=== PATIENT | male | born 1975 | race Caucasian/White ===

== ENCOUNTER 2018-12-02 16:27 | Emergency (ER) | payer MEDICAID, SELFPAY ==
--- NOTE | 2018-12-02 16:41 | NUR.NOTE ---
Nursing Note: pt has had 10/10 LLQ abdominal pain since last night PT states that it feels just like when he had his appendicitis
[2018-12-02 16:42] VITALS: BP 132/84; PULSE 70; RESP 15; TEMP 36.9; O2SAT 97
--- NOTE | 2018-12-02 16:54 | ED.GENADUL_ITS ---
Discharge Plan Disposition Patient Disposition: HOME Condition: Stable Discharge Details Chief Complaint: Abd Prob Clinical Impression: Diverticulitis Primary Care Provider: Nik Casas ED Provider: Ramses Loya Home Meds and New Rx's Prescriptions: No Action ibuprofen 800 mg tablet 800 mg PO TID PRN (Reason: pain) Qty: 90 RF: 3 clonazepam 0.5 mg tablet 1 mg PO BID Qty: 120 RF: 0 Discharge Data Discharge Date/Time-TO BE ENTERED AT DEPARTURE: 12/02/18 20:15 Medical Decision Making 43 yo male with hx of prior appendectomy over 5 years ago per pt who comes in with 2 days of worsening left lower quadrant pain. Denies fevers, chills, chest pain, sob, vomit. No recent travel. Has no upper abdominal pain, mild rlq pain on exam and significant tenderness in the llq on exam without guarding. Ssupect diverticulitis, will obtain ct imaging and lab work and monitor pt's workup came back during down time. His labs showed no significant abnormalities and CT confirmed uncomplicated diverticulitis. Was given d/c instructions to f/u with pcp and return if worsening, prescribed cipro and flagyl as well as 12 tabs of oxycodone. Differential Diagnosis diverticulitis, abscess, colitis Imaging Data Radiologic Study: Attestation: I personally reviewed and interpreted this imaging study as follows: Imaging: CT Scan Radiologist's impression: diverticulitis Lab Data Lab results reviewed: Yes I reviewed the patient's lab results. ECG Data Attestation: I personally reviewed and interpreted this ECG (s) as follows: Prior ECG tracings: not available for review Interpretation: sinus rhythm, rate of 76, pr 148, no acute st t wave ischemic findings HPI General Mode of arrival: ambulatory . Date/Time Provider Initiated Documentation: 12/02/18 16:27 . Limitations to Documentation: no limitations . Information obtained by: patient . History of Present Illness 43 year old M presents to the emergency department with the chief complaint of abdominal pain, described as moderate and severe, Quality is described as stabbing, Patient reports no radiation. Patient started experiencing this day(s) (2) and it has been constant. No relieving factors improve symptom(s), No exacerbating factors reported . Patient did receive the following treatments prior to arrival, none Related Data Home Medications Medication Instructions Recorded Confirmed ibuprofen 800 mg tablet 800 mg PO TID PRN #90 tab 02/05/18 clonazepam 0.5 mg tablet 1 mg PO BID #120 tab NS 11/06/18 Previous Rx's Medication Instructions Recorded ibuprofen 800 mg tablet 800 mg PO TID PRN #90 tab 02/05/18 clonazepam 0.5 mg tablet 1 mg PO BID #120 tab NS 11/06/18 Allergies Allergy/AdvReac Type Severity Reaction Status Date / Time Penicillins Allergy Intermediate Hives Unverified 01/16/18 14:30 duloxetine AdvReac Severe Headache, Unverified 01/16/18 14:30 muscle spasm methylprednisolone AdvReac Severe GI upset, Unverified 01/16/18 14:30 [From Medrol] body aches pregabalin [From Lyrica] AdvReac Severe severe flu Unverified 01/16/18 14:30 like symptoms gabapentin AdvReac Intermediate stomach, Unverified 01/16/18 14:30 body aches lisinopril AdvReac Intermediate Burning Unverified 01/16/18 14:30 hands and feet. Malaise General Stated Complaint: Abd Prob BRETT: 3 Review of Systems Review of Systems All systems reviewed & are unremarkable except as noted in HPI and below Constitutional Denies chills, Denies fever(s) and Denies weakness Cardiovascular Denies chest pain and Denies dyspnea Respiratory Denies cough and Denies dyspnea Gastrointestinal Denies vomiting Genitourinary Denies dysuria Musculoskeletal Denies joint swelling Neurologic Denies weakness Endocrine Denies heat intolerance PFS Social History (Updated 02/19/18 @ 10:24 by Mikki Giles) Smoking/Tobacco Use Status: Never Alcohol Intake: never Drug use: Never Substance use type: does not use Household members: spouse current occupation: Owns [employer] in [place] Do you feel safe in your relationship?: Yes Exam Const General: no acute distress Orientation: alert HENMT Head: normal to inspection Ears: external ears normal General nose exam: external nose normal Mouth: moist mucous membranes Eyes General: appearance normal, both eyes and all related structures Neck Neck: normal visual inspection Resp Effort & Inspection: normal respiratory effort and able to speak in complete sentences Cardio Rate: regular rate GI Palpation: soft Skin General skin exam: no rashes or lesions noted Neuro General: alert and oriented x3 Extrem General: normal to inspection Psych Mental Status: mental status grossly normal Course Vital Signs Temperature 36.9 C 12/02/18 16:42 Pulse 70 12/02/18 16:42 Respiratory Rate 15 12/02/18 16:42 Blood Pressure 132/84 12/02/18 16:42 Pulse Oximetry 97 12/02/18 16:42 Temperature 36.9 C 12/02/18 16:42 Temperature Source Skin 12/02/18 16:42 Pulse 70 12/02/18 16:42 Respiratory Rate 15 12/02/18 16:42 Respiratory Effort Non-Labored 12/02/18 16:50 Blood Pressure 132/84 12/02/18 16:42 Blood Pressure Position Sitting 12/02/18 16:42 Pulse Oximetry 97 12/02/18 16:42 Oxygen Delivery Method Room Air 12/02/18 16:42 Oxygen Flow Rate 0 12/02/18 16:42 Pain Level 10 12/02/18 16:42
[2018-12-02] MEDS: Normal Saline 1,000 ML 1000 ML IV (17:15)
[2018-12-02] MEDS: Ketorolac 15 MG/ML VIAL IVP (17:15)
[2018-12-02 17:23] LABS: Abs Immature Grans 0.01 k/cumm (0.0-0.09); Absolute Basophil Count 0.01 k/cumm (0.0-0.2); Absolute Eosinophil Count 0.03 k/cumm (0.0-0.7); Absolute Lymphocyte Count 1.21 k/cumm (1.2-3.4); Absolute Monocyte Count 0.63 k/cumm (0.11-0.7); Absolute Neutrophil Count 7.39 k/cumm (1.2-6.7); Basophils % 0.1; Eosinophils % 0.3; HCT 43.2 % (40.0-50.0); Immature Grans % 0.1; Mean Corp. HGB Concentration 34.7 g/dL (32.0-36.0); Mean Corpuscular Hemoglobin 29.4 pg (27.0-33.0); Mean Corpuscular Volume 84.7 fL (80-95); Mean Platelet Volume 9.5 fL (8.0-11.0); Monocytes % 6.8; Neutrophils % 79.7; Platelet Count 224 x1000/uL (130-400); White Blood Cell Count 9.28 k/cumm (4.4-10.8)
[2018-12-02 17:36] LABS: INR 1.1 (0.9-1.1); PTT Activated 26.2 sec (21.0-31.4); Prothrombin Time 10.5 sec (9.3-11.0)
[2018-12-02 17:37] LABS: ALT 21 U/L (12-78); AST 10 U/L (15-37); Albumin 4.1 g/dL (3.4-5.0); Alkaline Phosphatase 57 U/L (46-116); BUN 16 mg/dL (7-18); CREATININE 1.23 mg/dL (0.70-1.30); Calcium 8.8 mg/dL (8.5-10.1); Chloride 101 mmol/L (98-107); Glucose 144 mg/dL (70-100); Lipase 91 U/L (73-393); Magnesium 2.1 mg/dL (1.8-2.4); Potassium 3.9 mmol/L (3.5-5.1); Sodium 138 mmol/L (136-145); Total Protein 7.6 g/dL (6.4-8.2)
[2018-12-02] MEDS: Omnipaque 350 MG/ML 100 ML BTL IJ (19:19)
[2018-12-02] MEDS: Omnipaque 350 MG/ML 50 ML BTL IJ (19:19)
--- NOTE | 2018-12-02 19:22 | DI.CT_ITS ---
SYMPTOMS/DIAGNOSIS: LEFT LOWER QUADRANT ABDOMINAL PAIN CT OF THE ABDOMEN AND PELVIS: Comparison is made with October,. The lung bases are clear. The heart size is normal. The liver is again noted to be mildly enlarged and shows mild fatty infiltration. The gallbladder, pancreas, adrenals and right kidney are unremarkable. There are a few splenic calcifications consistent with old healed granulomatous disease. There is a cyst at the upper pole of the left kidney. There are no stones or hydronephrosis. There are surgical clips near the base of the cecum. There is mild sigmoid diverticulosis. There is an area of wall thickening and inflammation consistent with diverticulitis. There is a trace amount of free fluid. There is no evidence of abscess or perforation. There is no abnormal bowel distention. IMPRESSION: Sigmoid diverticulitis.
--- NOTE | 2018-12-02 19:51 | DI.VRAD_ITS ---
EXAM: CT Abdomen and Pelvis With Contrast EXAM DATE/TIME: 12/02/2018 4:53 PM CLINICAL HISTORY: 43 years old, male; Abdominal pain; Localized; Left lower quadrant (llq) TECHNIQUE: Imaging protocol: Axial computed tomography images of the abdomen and pelvis with intravenous contrast. Coronal and sagittal reformatted images were created and reviewed. Radiation optimization: All CT scans at this facility use at least one of these dose optimization techniques: automated exposure control; mA and/or kV adjustment per patient size (includes targeted exams where dose is matched to clinical indication); or iterative reconstruction. Contrast material: [id number];Contrast volume: 125 ml;Contrast route: IV LAC 18G; COMPARISON: CT ABD PELVIS WITH CONTRAST 11/01/2017 4:38 PM FINDINGS: Liver: Mild hepatomegaly. Gallbladder and bile ducts: Normal. No calcified stones. No ductal dilation. Pancreas: Normal. No ductal dilation. Spleen: Splenomegaly. Splenic calcifications consistent with old granulomatous change. Adrenals: Normal. No mass. Kidneys and ureters: Left renal cyst. Stomach and bowel: Focal wall thickening involves the proximal sigmoid colon with wall diverticulum and mild adjacent inflammatory change. Appendix: Status post appendectomy. Intraperitoneal space: Trace free fluid. Vasculature: Normal. No abdominal aortic aneurysm. Lymph nodes: Normal. No enlarged lymph nodes. Bladder: Unremarkable as visualized. Reproductive: Unremarkable as visualized. Bones/joints: No acute fracture. No dislocation. Soft tissues: Unremarkable. IMPRESSION: 1. Acute diverticulitis, uncomplicated. 2. Hepatosplenomegaly, not significantly changed from prior exam. COMMENT: Preliminary interpretation is based on receipt of 356 image(s). A final report will be issued subsequently. Dictated and Authenticated by: Hyacinth Mcneil MD. Ordering:ARSH Pearce MD
== END 2018-12-02 20:15 | disposition home or self-care (01) ==
LOC: ER 16:45
PROVIDERS: Emergency Provider Emergency Medicine; PCP Family Medicine
DX: K57.32 Diverticulitis of large intestine without perforation or abscess without bleeding (principal); I10 Essential (primary) hypertension; R73.03 Prediabetes
CPT/HCPCS: 36415; 80053; 83690; 93005; 96361; 96374; 99285; 74177; 83735; 85025; 85610; 85730; 93010; J1885; J3490; Q9967

== ENCOUNTER 2019-03-23 13:13 | Outpatient (CLI) | payer MEDICAID, SELFPAY ==
[2019-03-27 08:14] LABS: GAD65 Ab Assay 0.11 nmol/L (<= 0.02)
== END 2019-03-23 13:33 ==
PROVIDERS: PCP Family Medicine; Visit Provider Psychiatry & Neurology Neurology
DX: R20.2 Paresthesia of skin (principal)
CPT/HCPCS: 36415; 86341

== ENCOUNTER 2019-04-17 15:56 | Emergency (ER) | payer MEDICAID, SELFPAY ==
[2019-04-17 15:59] VITALS: BP 140/96; PULSE 79; RESP 18; TEMP 36.6; O2SAT 99
--- NOTE | 2019-04-17 16:58 | W.ED.GENAD ---
Discharge Plan Disposition Patient Disposition: HOME Condition: Improving Discharge Details Chief Complaint: Abd Prob Clinical Impression: Diverticulitis of sigmoid colon Primary Care Provider: Nik Casas ED Provider: Butch Keller Home Meds and New Rx's Prescriptions: New metronidazole 500 mg tablet 500 mg PO Q6H 10 Days Qty: 40 RF: 0 ciprofloxacin HCl 750 mg tablet 750 mg PO BID 10 Days Qty: 20 RF: 0 Continued clonazepam 0.5 mg tablet 0.5 mg PO QID Qty: 120 RF: 1 ibuprofen 800 mg tablet 400 mg PO TID PRN (Reason: pain) RF: 0 Discontinued ciprofloxacin HCl [Cipro] 500 mg tablet 500 mg PO Q12H Qty: 20 RF: 0 metronidazole [Flagyl] 500 mg tablet 500 mg PO Q8H Qty: 30 RF: 0 Discharge Instructions Instructions: Diverticulitis (ED), Diverticulitis Diet (ED) Additional Instructions: Please observe a bland diet. May use Tylenol and/or ibuprofen as needed for pain. May use oxycodone as provided if needed for severe breakthrough pain. Take antibiotics as prescribed. Ciprofloxacin is twice daily, next dose tomorrow morning, Flagyl/metronidazole is every 6 hours. No alcohol with this medication. May use Zofran, sparingly, if needed for persistent nausea. When pain has abated, I recommend you begin daily Metamucil, available [id number]. Please follow-up with your regular doctor and consider referral to surgery for consultation. Return if increasing pain, vomiting, or any other acute concerns. Medical Decision Making 44-year-old male presents from home complaining of hours of the gradual onset of left lower quadrant abdominal pain is dull, achy, worse with movement. Similar to previous episode of diverticulitis in the past. He is otherwise been well, his vital signs are normal, his exam reveals primarily left and lower quadrant abdominal tenderness. Differential diagnosis includes diverticulitis, colitis, obstruction. Patient IV access established, given fluids, antiemetic, parenteral analgesia, and was referred for laboratory testing and CT scan. CBC with white count 8, medical 42, platelets 213. Sodium 141, potassium 4.4, chloride 101, bicarb 32, BUN 12, creatinine 1.1, LFTs unremarkable. CT with sigmoid diverticulitis, no free air or obstruction. Patient's pain improved with fluids and parenteral medications. He was started on oral antibiotics with ciprofloxacin and Flagyl. He did request and was provided a small number of narcotic analgesia for home. He understands homecare as well as indications to return for repeat evaluation. He will follow-up with PMD for recheck. He is stable and improving. Lab Data Lab results reviewed: Yes I reviewed the patient's lab results. Labs: Laboratory Results - last 24 hr 04/17/19 04/17/19 04/17/19 16:29 17:08 17:08 WBC 8.95 RBC 5.04 Hgb 14.8 Hct 42.5 MCV 84.3 MCH 29.4 MCHC 34.8 RDW 13.0 Plt Count 213 MPV 9.2 Immature Gran % 0.1 Neutrophils % 80.8 Lymphocytes % 10.9 Monocytes % 7.3 Eosinophils % 0.7 Basophils % 0.2 Absolute Neutrophils 7.23 H Absolute Lymphocytes 0.98 L Absolute Monocytes 0.65 Absolute Eosinophils 0.06 Absolute Basophils 0.02 Sodium Cancelled 141 Potassium Cancelled 4.4 Chloride Cancelled 101 Carbon Dioxide Cancelled 32.1 H Anion Gap Cancelled 7.9 BUN Cancelled 12 Creatinine Cancelled 1.16 Estimated GFR/1.73 m2 Cancelled >= 60.00 Glucose Cancelled 117 H Calcium Cancelled 9.2 Magnesium Cancelled Total Bilirubin Cancelled 0.7 AST Cancelled 15 ALT Cancelled 24 Alkaline Phosphatase Cancelled 68 Troponin I Cancelled Total Protein Cancelled 7.3 Albumin Cancelled 3.9 HPI General Mode of arrival: ambulatory. Date/Time Provider Initiated Documentation: 04/17/19 16:47. Limitations to Documentation: no limitations. Information obtained by: patient. History of Present Illness 44 year old M presents to the emergency department with the chief complaint of Left lower quadrant abdominal pain beginning today, similar to previous , described as similar to prior episodes, Quality is described as dull and constant, and is localized to the abdomen and left. Patient reports no radiation. Patient started experiencing this hour(s) and it has been constant. Rest improves symptom(s), Movement worsens symptoms . Patient notes fever/chills and loss of appetite. Patient did receive the following treatments prior to arrival, none Related Data Home Medications Medication Instructions Recorded Confirmed clonazepam 0.5 mg tablet 0.5 mg PO QID #120 tab 04/08/19 04/17/19 ciprofloxacin HCl 750 mg PO BID 10 Days #20 tab 04/17/19 ibuprofen 400 mg PO TID PRN 04/17/19 04/17/19 metronidazole 500 mg PO Q6H 10 Days #40 tab 04/17/19 Previous Rx's Medication Instructions Recorded clonazepam 0.5 mg tablet 0.5 mg PO QID #120 tab 04/08/19 ciprofloxacin HCl 750 mg PO BID 10 Days #20 tab 04/17/19 metronidazole 500 mg PO Q6H 10 Days #40 tab 04/17/19 Allergies Allergy/AdvReac Type Severity Reaction Status Date / Time Penicillins Allergy Intermediate Hives Unverified 04/17/19 16:17 duloxetine AdvReac Severe Headache, Unverified 04/17/19 16:17 muscle spasm methylprednisolone AdvReac Severe GI upset, Unverified 04/17/19 16:17 [From Medrol] body aches pregabalin [From Lyrica] AdvReac Severe severe flu Unverified 04/17/19 16:17 like symptoms gabapentin AdvReac Intermediate stomach, Unverified 04/17/19 16:17 body aches lisinopril AdvReac Intermediate Burning Unverified 04/17/19 16:17 hands and feet. Malaise General Stated Complaint: Abd Prob BRETT: 3 Review of Systems Narrative: Recently well. Blood-streaked stool yesterday. No vomiting. No bloating. No noted fever. 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 The disc material appears to abut the L5 nerve root. 10/18/15 Lumbar spondylosis L4-L5, left Dental caries (Resolved) Esophageal reflux (Chronic) neg, HPylori Essential hypertension (Chronic 02/16/15) Family history of diabetes mellitus (Resolved 10/07/13) Idiopathic scoliosis (Chronic) Obesity (BMI 30-39.9) (Chronic 11/15/17) Prediabetes (Chronic) Surgical History Appendectomy H/O lumbosacral spine surgery (Acute) Left L4-5 ton-laminotomy with a medial facetectomy for left sciatica; 10/18/[address] Menendez Myringotomy w/ PE (pressure equalizing) tubes age 5 Tonsillectomy Social History Smoking/Tobacco Use Status: Never Alcohol Intake: never Drug use: Never Substance use type: does not use Household members: spouse current occupation: Owns [employer] in [place] Do you feel safe in your relationship?: Yes Exam Narrative Exam Narrative: GEN: awake, alert, oriented 3. Pleasant, well groomed, interactive. HEAD: Normocephalic, atraumatic ENT: Mucous membranes moist, oropharynx unremarkable, External ear exam unremarkable EYES: PERRL, EOMI NECK: Full ROM, no DEV, no menigismus CHEST/RESP: Nontender, clear to auscultation bilateral, no wheeze/rhonchi/rales CARDIOVASCULAR: RRR, no murmur, rub isabel. 2+ Rad pulse bilateral ABDOMEN: Soft, tender in the left and lower quadrants of the abdomen, mild rebound present, no guarding. EXT: Full ROM, no edema, no rash Neuro: Grossly normal neurologic exam, conversant, interactive. Psych: Speech fluent, thoughts congruent, affect normal Course Vital Signs Vital signs: Vital Signs Temperature 36.6 C 04/17/19 15:59 Pulse 79 04/17/19 15:59 Respiratory Rate 18 04/17/19 15:59 Blood Pressure 140/96 H 04/17/19 15:59 Pulse Oximetry 99 04/17/19 15:59 Temperature 36.6 C 04/17/19 15:59 Temperature Source Skin 04/17/19 15:59 Pulse 79 04/17/19 15:59 Respiratory Rate 18 04/17/19 15:59 Respiratory Effort 04/17/19 16:03 Blood Pressure 140/96 H 04/17/19 15:59 Pulse Oximetry 99 04/17/19 15:59 Oxygen Delivery Method Room Air 04/17/19 15:59 Oxygen Flow Rate 0 04/17/19 15:59 Pain Level 8 04/17/19 16:19
[2019-04-17] MEDS: Normal Saline 1,000 ML 1000 ML IV ×2 (17:10→17:15)
[2019-04-17 17:20] LABS: Abs Immature Grans 0.01 k/cumm (0.0-0.09); Absolute Basophil Count 0.02 k/cumm (0.0-0.2); Absolute Eosinophil Count 0.06 k/cumm (0.0-0.7); Absolute Lymphocyte Count 0.98 k/cumm (1.2-3.4); Absolute Monocyte Count 0.65 k/cumm (0.11-0.7); Absolute Neutrophil Count 7.23 k/cumm (1.2-6.7); Basophils % 0.2; Eosinophils % 0.7; HCT 42.5 % (40.0-50.0); HGB 14.8 g/dL (13.5-17.5); Immature Grans % 0.1; Lymphocytes % 10.9; Mean Corp. HGB Concentration 34.8 g/dL (32.0-36.0); Mean Corpuscular Hemoglobin 29.4 pg (27.0-33.0); Mean Corpuscular Volume 84.3 fL (80-95); Mean Platelet Volume 9.2 fL (8.0-11.0); Monocytes % 7.3; Neutrophils % 80.8; Platelet Count 213 x1000/uL (130-400); RBC 5.04 m/cumm (4.50-6.00); White Blood Cell Count 8.95 k/cumm (4.4-10.8)
[2019-04-17] MEDS: HYDROmorphone 2 MG/ML VIAL 0.5 MG IVP ×2 (17:23→18:59)
[2019-04-17 17:31] LABS: ALT 24 U/L (16-63); AST 15 U/L (15-37); Albumin 3.9 g/dL (3.4-5.0); Alkaline Phosphatase 68 U/L (46-116); Anion Gap 7.9 mmol/L (3-11); BUN 12 mg/dL (7-18); Bilirubin, Total 0.7 mg/dL (0.2-1.0); CO2 32.1 mmol/L (21.0-32.0); CREATININE 1.16 mg/dL (0.70-1.30); Calcium 9.2 mg/dL (8.5-10.1); Chloride 101 mmol/L (98-107); Glucose 117 mg/dL (74-106); Potassium 4.4 mmol/L (3.5-5.1); Sodium 141 mmol/L (136-145); Total Protein 7.3 g/dL (6.4-8.2)
[2019-04-17] MEDS: Omnipaque 350 MG/ML 100 ML BTL IJ (17:41)
--- NOTE | 2019-04-17 18:04 | DI.CT_ITS ---
EXAM: CT ABDOMEN PELVIS W CLINICAL HISTORY: LLQ pain, hx diverticulitis TECHNIQUE: Imaging Protocol: Axial computed tomography images with coronal and sagittal reformatted images were created and reviewed CONTRAST MATERIAL: Intravenous: Omnipaque 350 Contrast volume:100 mL contrast route:IV - Oral: No COMPARISON: CT ABDOMEN PELVIS W from 12/02/2018 FINDINGS: ABDOMEN: Lung Bases: Normal where visualized. Liver: Normal density. No measurable mass. Gallbladder and biliary tract: No radiodense calculus or dilation. Pancreas: Normal density, no abnormal calcifications or inflammatory process. Spleen: Calcifications consistent with prior granulomatous disease. Kidneys: Normal size, contour and axis. No radiodense stones or obstructive uropathy. Stable cyst in the superior pole of the left kidney. No solid renal mass. Adrenal glands: No masses seen. Abdominal Aorta: Abdominal portion non-dilated. PELVIS: Bladder: Symmetric distention, no gross wall thickening. Bowel: There is diverticulosis of the colon. Bowel wall thickening and pericolonic changes are seen in the proximal sigmoid colon consistent with acute diverticulitis. No abscess. The patient is stat us post appendectomy. Bowel is otherwise unremarkable. Peritoneal cavity: No ascites, collection or mesenteric inflammatory response. No pneumoperitoneum. Bones: Within normal limits. Reproductive organs: Within normal limits. Lymph nodes: Unremarkable. Impression: Acute sigmoid diverticulitis. No evidence of abscess or free air. DATA REPOSITORY: All CT scans at this facility are submitted to the National Radiology Data Registry (NRDR) Dose Index Registry (DIR) with the [employer] ([employer]). RADIATION OPTIMIZATION: All CT scans at this facility use at least one of these dose optimization te chniques: automated exposure control; mA and/or kV adjustment per patient size (includes targeted exa ms where dose is matched to clinical indication); or iterative reconstruction.
[2019-04-17 18:30] LABS: Bilirubin Negative (Negative); Blood Negative (Negative); Clarity Clear (Clear); Glucose Negative (Negative); Ketones Negative (Negative); Leukocyte Esterase Negative (Negative); Nitrite Negative (Negative); Specific Gravity 1.015 (1.005-1.025); Urobilinogen 0.2 EU/dL (Up TO 0.2)
--- NOTE | 2019-04-17 18:37 | DI.VRAD_ITS ---
PROCEDURE INFORMATION: Exam: CT Abdomen And Pelvis With Contrast Exam date and time: 04/17/2019 6:12 PM Age: 44 years old Clinical indication: Abdominal pain; Localized; Left lower quadrant (llq); Patient HX: Llq pain, HX diverticulitis TECHNIQUE: Imaging protocol: Computed tomography of the abdomen and pelvis with intravenous contrast. COMPARISON: CT ABDOMEN PELVIS W 12/02/2018 7:18 PM FINDINGS: Lungs: Visualized lung bases are unremarkable. Liver: The liver is normal. Gallbladder and bile ducts: The gallbladder is normal. Pancreas: The pancreas is normal. Spleen: Punctate calcifications in the spleen consistent with prior granulomatous disease. Adrenals: The adrenal glands are normal. Kidneys and ureters: Simple appearing left renal cyst.The kidneys are otherwise unremarkable. Stomach and bowel: Sigmoid diverticulosis with mild surrounding fat stranding. Otherwise normal appearance of the large and small bowel. Appendix: Status post appendectomy. Intraperitoneal space: Unremarkable. No free air. No significant fluid collection. Vasculature: The aorta is normal. Lymph nodes: Unremarkable. No enlarged lymph nodes. Bladder: The bladder is normal. Reproductive: The prostate and seminal vesicles are normal. Bones/joints: Unremarkable. No acute fracture. Soft tissues: Unremarkable. IMPRESSION: Mild sigmoid diverticulitis. No abscess or free air. Dictated and Authenticated by: Milind Valenzuela MD. Ordering:JUSTEN Rae MD
[2019-04-17] MEDS: Ciprofloxacin 500 MG TAB 750 MG PO (18:56)
[2019-04-17] MEDS: metroNIDAZOLE 500 MG TAB PO (18:57)
[2019-04-17 19:02] VITALS: BP 114/85; PULSE 80; RESP 18; O2SAT 100
[2019-04-17] MEDS: HYDROmorphone 2 MG/ML VIAL (20:05)
[2019-04-17] MEDS: Ondansetron 4 MG/2 ML VIAL IVP (20:07)
[2019-04-17] MEDS: Ciprofloxacin 250 MG TAB PO (20:14)
[2019-04-17] MEDS: metroNIDAZOLE 500 MG TAB, 3 TABS/BTL PO (20:15)
[2019-04-17 20:16] VITALS: BP 114/67; PULSE 89; RESP 18; TEMP 36.4; O2SAT 98
[2019-04-17] MEDS: Ondansetron O.D.T. 4 MG TABEF, 3 TABS/BTL PO (20:16)
== END 2019-04-17 20:15 | disposition home or self-care (01) ==
PROVIDERS: Emergency Provider Emergency Medicine; PCP Family Medicine
DX: K57.32 Diverticulitis of large intestine without perforation or abscess without bleeding (principal); I10 Essential (primary) hypertension
CPT/HCPCS: 36415; 80053; 96361; 96365; 96375; 96376; 99285; 74177; 81003; 83735; 84484; 85025; 99284; J2405; J3490

== ENCOUNTER 2019-05-18 09:45 | Observation (INO) | payer MEDICAID, SELFPAY ==
[2019-05-18] VITALS (51 sets, daily range): BP systolic 109–174; BP diastolic 58–95; PULSE 51–93; RESP 8–28; TEMP 36.1–37.1; O2SAT 94–99
--- NOTE | 2019-05-18 09:56 | ED.GENADUL_ITS ---
Discharge Plan Disposition Condition: Stable Discharge Details Chief Complaint: Chest Pain Admit Date/Time: 05/18/19 15:30 Admit Provider: Osman Grande Attending Provider: Osman Grande Primary Care Provider: Nik Casas ED Provider: Flor Patricio Discharge Instructions Activity:: Activity as Tolerated Equipment/Supplies:: No Equipment Needed Diet:: As Tolerated Discharge Orders Discharge Orders: Discharge Order (Routine); Ordered 05/19/19 Ordered By: Ramses Zarate Discharge Data Discharge Date/Time-TO BE ENTERED AT DEPARTURE: 05/18/19 16:00 Medical Decision Making Devon Blue is a 44-year-old man with history of hypertension, anxiety, GERD who presented to the emergency department with left great toe pain chronic over the past 1.5 years worse in the last 3 days consistent with prior episodic pain, also with 2 to 3 weeks of left-sided chest pain which is currently occurring. On exam patient is well and nontoxic appearing. Benign cardiopulmonary exam. Diffuse tenderness palpation of bilateral lower legs that is very mild and seem pain as what is elicited with palpation of bony areas such as patella and malleoli, no edema or erythema of the legs. Left great toe with mild edema and erythema of the PIP joint. Concern for ACS versus musculoskeletal pain versus GERD versus other, doubt pulmonary embolism. Also concern for likely gout, possible influenza, possible metabolic/lyte derangement. Doubt DVT. Exam/history is not consistent with cellulitis, acute aortic pathology, sepsis, acute emergent intra-abdominal process. Plan for EKG, chest x-ray, screening labs, telemetry, aspirin, chewable nitroglycerin. Will monitor and reassess. Patient reports chest pain resolved completely after sublingual nitroglycerin x3. Labs reviewed, troponin negative, d-dimer negative. Plan for repeat troponin, repeat EKG. Repeat troponin negative, repeat EKG nondiagnostic. Patient has remained chest pain-free since receiving nitroglycerin. Patient now reports to me that he does feel that his chest pain has been exertional, as he has had the same pain is initially described during sexual activity, which then does seem to improve significantly upon rest. Plan for admission for rule out. Plan for colchicine for likely gout. Clinical impression: Chest pain, gout Disposition: [facility] inpatient Medical Records Medical records reviewed: Yes I reviewed the patient's medical records. Imaging Data Radiologic Study: Attestation: I personally reviewed and interpreted this imaging study as follows: Radiologist's impression: EXAM: XR CHEST 2V PA LATERAL CLINICAL HISTORY: chest pain TECHNIQUE: 2D digital imaging was performed. COMPARISON: No exams were available for comparison FINDINGS: The cardiac and mediastinal contours have a normal appearance. The lungs are well inflated and clear. No infiltrate, effusion or pneumothorax is seen. No spine or rib fracture is identified. IMPRESSION: Negative chest x-ray. Lab Data Lab results reviewed: Yes I reviewed the patient's lab results. Labs: 05/18/19 10:22 Nasopharynx Influenza Types A,B Antigen - Final Laboratory Tests Range/Units 05/18/19 05/18/19 05/18/19 10:22 10:22 10:22 WBC (4.4-10.8) k/cumm RBC (4.50-6.00) m/cumm Hgb (13.5-17.5) g/dL Hct (40.0-50.0) % MCV (80-95) fL MCH (27.0-33.0) pg MCHC (32.0-36.0) g/dL RDW (11.8-14.1) % Plt Count (130-400) x1000/uL MPV (8.0-11.0) fL Immature Gran % % Neutrophils % Lymphocytes % Monocytes % Eosinophils % Basophils % Absolute Neutrophils (1.2-6.7) k/cumm Absolute Lymphocytes (1.2-3.4) k/cumm Absolute Monocytes (0.11-0.7) k/cumm Absolute Eosinophils (0.0-0.7) k/cumm Absolute Basophils (0.0-0.2) k/cumm D-Dimer (<500) ng/mlFEU 204 Sodium (136-145) mmol/L 139 Potassium (3.5-5.1) mmol/L 4.2 Chloride (98-107) mmol/L 105 Carbon Dioxide (21.0-32.0) mmol/L 25.1 Anion Gap (3-11) mmol/L 8.9 BUN (7-18) mg/dL 11 Creatinine (0.70-1.30) mg/dL 1.09 Estimated GFR/1.73 m2 (mL/min/1.73m2) >= 60.00 Glucose (74-106) mg/dL 175 H Calcium (8.5-10.1) mg/dL 8.8 Magnesium (1.8-2.4) mg/dL 1.9 Total Bilirubin (0.2-1.0) mg/dL 0.4 AST (15-37) U/L 13 L ALT (16-63) U/L 25 Alkaline Phosphatase (46-116) U/L 75 Troponin I (<0.06) ng/Ml < 0.05 NT-Pro-B Natriuret Pep (<300) pg/mL 12 Total Protein (6.4-8.2) g/dL 7.4 Albumin (3.4-5.0) g/dL 4.1 Range/Units 05/18/19 05/18/19 10:22 13:05 WBC (4.4-10.8) k/cumm 5.28 RBC (4.50-6.00) m/cumm 5.22 Hgb (13.5-17.5) g/dL 15.5 Hct (40.0-50.0) % 44.1 MCV (80-95) fL 84.5 MCH (27.0-33.0) pg 29.7 MCHC (32.0-36.0) g/dL 35.1 RDW (11.8-14.1) % 13.0 Plt Count (130-400) x1000/uL 252 MPV (8.0-11.0) fL 9.5 Immature Gran % % 0.2 Neutrophils % 59.8 Lymphocytes % 28.8 Monocytes % 9.1 Eosinophils % 1.7 Basophils % 0.4 Absolute Neutrophils (1.2-6.7) k/cumm 3.16 Absolute Lymphocytes (1.2-3.4) k/cumm 1.52 Absolute Monocytes (0.11-0.7) k/cumm 0.48 Absolute Eosinophils (0.0-0.7) k/cumm 0.09 Absolute Basophils (0.0-0.2) k/cumm 0.02 D-Dimer (<500) ng/mlFEU Sodium (136-145) mmol/L Potassium (3.5-5.1) mmol/L Chloride (98-107) mmol/L Carbon Dioxide (21.0-32.0) mmol/L Anion Gap (3-11) mmol/L BUN (7-18) mg/dL Creatinine (0.70-1.30) mg/dL Estimated GFR/1.73 m2 (mL/min/1.73m2) Glucose (74-106) mg/dL Calcium (8.5-10.1) mg/dL Magnesium (1.8-2.4) mg/dL Total Bilirubin (0.2-1.0) mg/dL AST (15-37) U/L ALT (16-63) U/L Alkaline Phosphatase (46-116) U/L Troponin I (<0.06) ng/Ml < 0.05 NT-Pro-B Natriuret Pep (<300) pg/mL Total Protein (6.4-8.2) g/dL Albumin (3.4-5.0) g/dL ECG Data Attestation: I personally reviewed and interpreted this ECG (s) as follows: Interpretation: EKG shows sinus rhythm at 68, normal axis, no acute ischemic changes, no major changes from prior 12/02/2018, nondiagnostic EKG EKG 14: 43 shows sinus rhythm at 51, normal axis, no acute ischemic changes, no significant change from prior, nondiagnostic EKG HPI General Mode of arrival: ambulatory . Date/Time Provider Initiated Documentation: 05/18/19 09:55 . Limitations to Documentation: no limitations . Information obtained by: patient, RN notes reviewed and old records reviewed . HPI Narrative: Devon Shields is a 44-year-old man with a history of anxiety, hypertension, GERD presenting to the emergency department with left great toe pain and left chest pain. Patient reports that currently his worst pain is in his left toe. He reports that he has been having pain in this toe over the past year and a half. He suspects that his pain is caused by gout, although he has not had confirmatory testing. Patient takes ibuprofen intermittently for this. Patient reports that over the past few days his toe pain has flared up as it tends to do intermittently. Patient reports that toe pain is the worst pain th at he is currently having, although it is not worse than his typical for flareups. He does reports the pain seems to radiate into his entire foot and up his left leg which does not usually occur. Patient also reports that over the past 1 year he has had left-sided chest discomfort that he describes as heaviness and like a muscle spasm with a burning sensation. Pain has been occurring more frequently and with more severity over the past 2 to 3 weeks. Pain does not radiate. Patient reports that pain does not seem to have any inciting factors, although it does become worse with exertion. Patient is unsure if rest helps lessen pain. Patient reports that for the past 2 to 3 weeks he often wakes up with the sensation in his chest, it waxes and wanes throughout the day and usually lasts until he goes to sleep. Patient reports that pain seems unchanged by eating. Nonpleuritic. He reports that in the past 3 days he has also had generalized body aches in his muscles and joints, worse in his legs but also occurring in his arms, and productive cough. Patient reports some mild shortness of breath over this period as well. He denies fevers, vomiting, diarrhea, rash, numbness, focal weakness, any other pain. He reports that he has been eating and drinking as usual. No other recent illness. No recent travel. 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 Patient reports that his chest pain/heaviness does not stop him from going about his daily activities. Related Data Home Medications Medication Instructions Recorded Confirmed clonazepam 0.5 mg tablet 0.5 mg PO QID #120 tab 04/08/19 05/18/19 ibuprofen 400 mg PO TID PRN 04/17/19 05/18/19 aspirin [Aspir-81] 81 mg PO DAILY #30 tab 05/19/19 colchicine [Colcrys] 0.6 mg PO BID 3 Days #6 tab 05/19/19 nitroglycerin [Nitrostat] 0.4 mg SUBLINGUAL Q5 MIN PRN X3 05/19/19 PRN #30 tab pantoprazole [Protonix] 40 mg PO DAILY #30 each 05/19/19 Previous Rx's Medication Instructions Recorded clonazepam 0.5 mg tablet 0.5 mg PO QID #120 tab 04/08/19 aspirin [Aspir-81] 81 mg PO DAILY #30 tab 05/19/19 colchicine [Colcrys] 0.6 mg PO BID 3 Days #6 tab 05/19/19 nitroglycerin [Nitrostat] 0.4 mg SUBLINGUAL Q5 MIN PRN X3 05/19/19 PRN #30 tab pantoprazole [Protonix] 40 mg PO DAILY #30 each 05/19/19 Allergies Allergy/AdvReac Type Severity Reaction Status Date / Time Penicillins Allergy Intermediate Hives Unverified 05/18/19 10:02 duloxetine AdvReac Severe Headache, Unverified 05/18/19 10:02 muscle spasm methylprednisolone AdvReac Severe GI upset, Unverified 05/18/19 10:02 [From Medrol] body aches pregabalin [From Lyrica] AdvReac Severe severe flu Unverified 05/18/19 10:02 like symptoms gabapentin AdvReac Intermediate stomach, Unverified 05/18/19 10:02 body aches lisinopril AdvReac Intermediate Burning Unverified 05/18/19 10:02 hands and feet. Malaise General Stated Complaint: Chest Pain BRETT: 3 Review of Systems Narrative: Constitutional: denies fevers Eyes: denies eye pain ENT: denies ear pain, dental pain, sore throat Cardiovascular: denies edema, reports chest pain Respiratory: Reports SOB, cough GI: denies abdominal pain, vomiting, diarrhea : denies flank pain MSK: denies back pain, neck pain, reports generalized arthralgias, myalgias in addition to focal pain in his left great toe Skin: denies rash Neuro: denies headaches, numbness, focal weakness [facility] Medical History Anxiety (Chronic 10/07/13) Attention deficit hyperactivity disorder (ADHD), 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 The disc material appears to abut the L5 nerve root. 10/18/15 Lumbar spondylosis L4-L5, left Dental caries (Resolved) Esophageal reflux (Chronic) neg, HPylori Essential hypertension (Chronic 02/16/15) Family history of diabetes mellitus (Resolved 10/07/13) Idiopathic scoliosis (Chronic) Obesity (BMI 30-39.9) (Chronic 11/15/17) Prediabetes (Chronic) Surgical History Appendectomy H/O lumbosacral spine surgery (Acute) Left L4-5 ton-laminotomy with a medial facetectomy for left sciatica; 10/18/[address] Menendez Myringotomy w/ PE (pressure equalizing) tubes age 5 Tonsillectomy Family History Other Diabetes Social History Smoking/Tobacco Use Status: Never Alcohol Intake: never Drug use: Never Substance use type: does not use Household members: spouse current occupation: Owns [employer] in [place] Do you feel safe in your relationship?: Yes Exam Narrative Exam Narrative: Constitutional: well and [id number], pleasant, conversing normally HENT: head atraumatic/normocephalic/normal inspection, mucous membranes moist Eyes: conjunctiva normal, sclera normal, pupils 3mm b/l Neck: no stridor, normal ROM, trachea midline Chest: normal inspection, nontender to palpation Resp: normal work of breathing, LCTAB Cardio: normal rate, normal rhythm, no murmur appreciated GI: abdomen soft, non-tender, non-distended Back: normal inspection, no rash Skin: warm, dry, normal color, no rash Neuro: alert, not altered, grossly non-focal, normal tone Ext: Left great toe with very mild edema and erythema over the PIP, normal range of motion, diffuse mild tenderness to palpation of left MTPs 1 through 5, left heel, left ankle without edema or overlying skin changes, diffuse mild tenderness palpation of bilateral legs including bilateral knees and posterior calves, there is no knee effusion bilaterally, no erythema of the knees or lower legs, and no edema the ankles or lower legs bilaterally. Full range of motion bilateral lower extremities knees, ankles, toes Psych: somewhat anxious mood, normal affect, normal behavior Course Vital Signs Vital signs: Vital Signs Temperature 36.5 C 05/18/19 09:50 Pulse 86 05/18/19 09:50 Respiratory Rate 16 05/18/19 09:50 Blood Pressure 174/92 H 05/18/19 09:50 Pulse Oximetry 97 05/18/19 09:50 Temperature 36.5 C 05/18/19 09:50 Temperature Source Temporal Artery Scan 05/18/19 09:50 Pulse 86 05/18/19 09:50 Respiratory Rate 16 05/18/19 09:50 Blood Pressure 174/92 H 05/18/19 09:50 Pulse Oximetry 97 05/18/19 09:50 Oxygen Delivery Method Room Air 05/18/19 09:50 Oxygen Flow Rate 0 05/18/19 09:50 Pain Level 6 05/18/19 09:50
[2019-05-18] MEDS: Normal Saline 1,000 ML 125 ML IV ×2 (10:05→16:36)
[2019-05-18] MEDS: Aspirin 81 MG CHEW 324 MG CH (10:18)
[2019-05-18] MEDS: Normal Saline Flush 10 ML SYR IVP (10:20)
[2019-05-18 10:44] LABS: Abs Immature Grans 0.01 k/cumm (0.0-0.09); Absolute Basophil Count 0.02 k/cumm (0.0-0.2); Absolute Eosinophil Count 0.09 k/cumm (0.0-0.7); Absolute Lymphocyte Count 1.52 k/cumm (1.2-3.4); Absolute Monocyte Count 0.48 k/cumm (0.11-0.7); Absolute Neutrophil Count 3.16 k/cumm (1.2-6.7); Basophils % 0.4; Eosinophils % 1.7; HCT 44.1 % (40.0-50.0); HGB 15.5 g/dL (13.5-17.5); Immature Grans % 0.2 %; Lymphocytes % 28.8; Mean Corp. HGB Concentration 35.1 g/dL (32.0-36.0); Mean Corpuscular Hemoglobin 29.7 pg (27.0-33.0); Mean Corpuscular Volume 84.5 fL (80-95); Mean Platelet Volume 9.5 fL (8.0-11.0); Monocytes % 9.1; Neutrophils % 59.8; Platelet Count 252 x1000/uL (130-400); RBC 5.22 m/cumm (4.50-6.00); White Blood Cell Count 5.28 k/cumm (4.4-10.8)
[2019-05-18 10:57] LABS: ALT 25 U/L (16-63); AST 13 U/L (15-37); Albumin 4.1 g/dL (3.4-5.0); Alkaline Phosphatase 75 U/L (46-116); Anion Gap 8.9 mmol/L (3-11); BUN 11 mg/dL (7-18); Bilirubin, Total 0.4 mg/dL (0.2-1.0); CO2 25.1 mmol/L (21.0-32.0); CREATININE 1.09 mg/dL (0.70-1.30); Calcium 8.8 mg/dL (8.5-10.1); Chloride 105 mmol/L (98-107); Glucose 175 mg/dL (74-106); Potassium 4.2 mmol/L (3.5-5.1); Sodium 139 mmol/L (136-145); Total Protein 7.4 g/dL (6.4-8.2)
[2019-05-18 11:00] LABS: Troponin I < 0.05 ng/Ml (<0.06)
[2019-05-18 11:03] LABS: Magnesium 1.9 mg/dL (1.8-2.4)
[2019-05-18] MEDS: Ibuprofen 400 MG TAB (11:28)
[2019-05-18 11:33] LABS: D-Dimer 204 ng/mlFEU (<500)
--- NOTE | 2019-05-18 12:39 | NUR.NOTE ---
pt states HR normally in the 50's asymptomatic with HR Nursing Note:
[2019-05-18 12:48] LABS: NT-proBNP 12 pg/mL (<300)
--- NOTE | 2019-05-18 12:54 | DI.RAD_ITS ---
EXAM: XR CHEST 2V PA LATERAL CLINICAL HISTORY: chest pain TECHNIQUE: 2D digital imaging was performed. COMPARISON: No exams were available for comparison FINDINGS: The cardiac and mediastinal contours have a normal appearance. The lungs are well inflated and clear . No infiltrate, effusion or pneumothorax is seen. No spine or rib fracture is identified. IMPRESSION: Negative chest x-ray.
[2019-05-18 13:47] LABS: Troponin I < 0.05 ng/Ml (<0.06)
[2019-05-18] MEDS: Colchicine 0.6 MG TAB PO (14:36)
[2019-05-18] MEDS: Enoxaparin 40 MG/0.4 ML SYR SC (16:22)
[2019-05-18] MEDS: Pantoprazole 40 MG TABCR PO (16:23)
[2019-05-18] MEDS: Sucralfate 1 GM TAB PO ×2 (16:23→21:30)
--- NOTE | 2019-05-18 17:39 | W.PM.HP.N ---
Date of service: 05/18/19 Time of Service: 17:39 Assessment and Plan Assessment and plan (1) Gout: Status: Chronic Assessment and plan: patient was given colchicine 0.6 mg and ibuprofen in the ER. Uric acid level was not obtained however a normal serum uric acid level does not rule out gout. The only way to make a diagnosis of gout or a diagnosis of pseudogout is to obtain arthrocentesis of the MTP to look for either uric acid crystals or for calcium pyrophospate crystals. However, I will proceed w/ treatment w/ ibuprofen and two more doses of colchicine tonight and then continue colchicine twice a day for next 3 days until his flare resolves. Qualifiers: Gout site: toe Gout etiology: unspecified cause Chronicity: acute Laterality: left Qualified Code(s): M10.9 - Gout, unspecified (2) Atypical chest pain: Status: Acute Assessment and plan: His chest pain does not fit with typical angina. If this had been anginal pain that lasted all day long then either his EKG would have demonstrated some changes or he would have had a rise in his troponin. Despite his claims of palpitations and dyspnea he is neither experiencing any tachycardia nor any hypoxemia. Because of his risk factors for CAD (FH, HTN, HLD obesity) we will proceed w/ a stress MPI study in the a.m. I think that more than likely his symptoms are either anxiety driven or due to GERD. I have put him on a PPI and carafate to see if this calms his symptoms down. I think that the NTG probable either had a placebo effect or he may have had esophageal spasms and the NTG acted on the smooth muscles of the esophagus to relax any spasm. If his stress MPI is negative then I would recommend GI referral for either an EGD or perform esophageal manometry to try to correlate his symptoms w/ increased esophageal pressures or he could have a pH measure of the esophagus to try to correlate acid reflux w/ his symptoms. Only after exhaustive evaluation for anatomical/physiological causes for his symptoms then I would recommend consultation w/ psychology to pursue anxiety driven causes of his symptoms. History of Present Illness History of Present Illness Chief Complaint: chest pain Narrative: 44 yr old male w/ PMH of HTN, GERD, anxiety disorder who presented to the ER for evaluation of left great toe pain. Pain has been present all week. No traumatic injury. While in the ER he mention to the ER attending that he has been experiencing chest pains for past 1 1/2 yrs and he has been referred to his PCP to a local neurologist d/t right sided numbness and tingling and pain over his entire right side. While in the ER he underwent a cardiac workup w/ couple of EKG's that did not show any ischemic changes and couple of troponin I levels were checked three hours apart and were both normal. He was diagnosed as having probable gout and treated w/ ibuprofen and colchicine and was going to be sent home except that his CP was relieved by NTG x 3 tablets and he mentioned that his CP have recently gotten worse w/ stress (mother recently from CP arrest) and he has been experiencing chest pain w/ sex. Per the ER attending his heart score is moderate (d/t HTN, untreated HLD and FH) and she requested that he be admitted for ACS rule out and stress test. The patient tells me that he has been getting palpitations along w/ dyspnea and chest pains in which he feel like someone is ripping his heart out and his chest wall will get real hard. Often his symptoms will occur even while not doing any physical activity. He says that a local neurologist has done a lot of tests and that she has referred him to [facility] neurology but he is awaiting that appointment. 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 He says that he had a bunch of tests but could not tell me what they were but he is sure that he has never had a stress test before. His main concern tonight is that his left great toe is tender and he would like something for relief. I told him that the only way to absolutely make a diagnosis of gout is to perform athrocentesis of the MTP joint. He declines to have this done. Because he feels that he would not be able to perform a GXT stress, I have ordered a Lexiscan MPI. 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 The disc material appears to abut the L5 nerve root. 10/18/15 Lumbar spondylosis L4-L5, left Dental caries (Resolved) Esophageal reflux (Chronic) neg, HPylori Essential hypertension (Chronic 02/16/15) Family history of diabetes mellitus (Resolved 10/07/13) Idiopathic scoliosis (Chronic) Obesity (BMI 30-39.9) (Chronic 11/15/17) Prediabetes (Chronic) Surgical History Appendectomy H/O lumbosacral spine surgery (Acute) Left L4-5 ton-laminotomy with a medial facetectomy for left sciatica; 10/18/[address] Menendez Myringotomy w/ PE (pressure equalizing) tubes age 5 Tonsillectomy Family History Other Diabetes Social History Smoking/Tobacco Use Status: Never Alcohol Intake: never Drug use: Never Substance use type: does not use Household members: spouse current occupation: Owns [employer] in [place] Do you feel safe in your relationship?: Yes Meds Home Medications and Allergies Home Medications Medication Instructions Recorded Confirmed Type clonazepam 0.5 mg tablet 0.5 mg PO QID #120 tab 04/08/19 05/18/19 Rx ibuprofen 400 mg PO TID PRN 04/17/19 05/18/19 History Allergies Allergy/AdvReac Type Severity Reaction Status Date / Time Penicillins Allergy Intermediate Hives Unverified 05/18/19 10:02 duloxetine AdvReac Severe Headache, Unverified 05/18/19 10:02 muscle spasm methylprednisolone AdvReac Severe GI upset, Unverified 05/18/19 10:02 [From Medrol] body aches pregabalin [From Lyrica] AdvReac Severe severe flu Unverified 05/18/19 10:02 like symptoms gabapentin AdvReac Intermediate stomach, Unverified 05/18/19 10:02 body aches lisinopril AdvReac Intermediate Burning Unverified 05/18/19 10:02 hands and feet. Malaise Exam Narrative Exam Narrative: Anxious, overweight male; alert and oriented x 4 HEENT: unremarkable Neck: supple w/out JVD, thryomegaly or lymphadenopathy; normal carotid pulses Lungs: clear to ausculation Cor: RRR, w/out murmur, rub or gallops Chest wall: tender over sternocostal margins bilaterally; some left breast tenderness but without palpable masses and no left axillary lymphadenopathy Abdomen: obese, soft, nontender; no appreciable organomegaly; no tenderness nor any bruits. Extremities: normal pedal pulses; left great toes is tender and swollen particularly over the MTP joint; there is pain w/ ROM of the 1st digit; also some tenderness over 2nd and 3rd MTP; ankle and dorsum of foot also appears slightly swollen but without erythema Results Labs Result diagrams: 05/18/19 10:22 05/18/19 10:22 Labs: Laboratory Results - last 24 hr 05/18/19 05/18/19 05/18/19 10:22 10:22 10:22 WBC RBC Hgb Hct MCV MCH MCHC RDW Plt Count MPV Immature Gran % Neutrophils % Lymphocytes % Monocytes % Eosinophils % Basophils % Absolute Neutrophils Absolute Lymphocytes Absolute Monocytes Absolute Eosinophils Absolute Basophils D-Dimer 204 Sodium 139 Potassium 4.2 Chloride 105 Carbon Dioxide 25.1 Anion Gap 8.9 BUN 11 Creatinine 1.09 Estimated GFR/1.73 m2 >= 60.00 Glucose 175 H Calcium 8.8 Magnesium 1.9 Total Bilirubin 0.4 AST 13 L ALT 25 Alkaline Phosphatase 75 Troponin I < 0.05 NT-Pro-B Natriuret Pep 12 Total Protein 7.4 Albumin 4.1 05/18/19 05/18/19 10:22 13:05 WBC 5.28 RBC 5.22 Hgb 15.5 Hct 44.1 MCV 84.5 MCH 29.7 MCHC 35.1 RDW 13.0 Plt Count 252 MPV 9.5 Immature Gran % 0.2 Neutrophils % 59.8 Lymphocytes % 28.8 Monocytes % 9.1 Eosinophils % 1.7 Basophils % 0.4 Absolute Neutrophils 3.16 Absolute Lymphocytes 1.52 Absolute Monocytes 0.48 Absolute Eosinophils 0.09 Absolute Basophils 0.02 D-Dimer Sodium Potassium Chloride Carbon Dioxide Anion Gap BUN Creatinine Estimated GFR/1.73 m2 Glucose Calcium Magnesium Total Bilirubin AST ALT Alkaline Phosphatase Troponin I < 0.05 NT-Pro-B Natriuret Pep Total Protein Albumin Last Vital Signs Temp 36.3 C L 05/18/19 16:19 Pulse 60 05/18/19 16:31 Resp 16 05/18/19 16:19 BP 136/87 05/18/19 16:19 Pulse Ox 98 05/18/19 16:19
[2019-05-18 18:20] LABS: Troponin I < 0.05 ng/Ml (<0.06)
[2019-05-18] MEDS: Ibuprofen 400 MG TAB PO (20:16)
[2019-05-18] MEDS: Colchicine 0.6 MG TAB 1.2 MG PO (20:17)
[2019-05-19 00:05] VITALS: BP 129/80; PULSE 49; RESP 16; TEMP 37; O2SAT 98
[2019-05-19 06:56] LABS: Calculated LDL 153 mg/dL (<100); Cholesterol 213 mg/dL (<200); Glucose 120 mg/dL (74-106); HDL Cholesterol 25 mg/dL (40-60); Triglyceride 178 mg/dL (<150)
[2019-05-19 07:20] VITALS: BP 121/82; PULSE 64; RESP 16; TEMP 36.8; O2SAT 98
[2019-05-19 07:28] VITALS: PULSE 53
[2019-05-19] MEDS: Sucralfate 1 GM TAB PO ×2 (09:36→12:40)
[2019-05-19] MEDS: Aspirin E.C. 81 MG TABEC PO (09:36)
[2019-05-19] MEDS: Pantoprazole 40 MG TABCR PO (09:36)
[2019-05-19] MEDS: Colchicine 0.6 MG TAB PO ×2 (09:36→09:37)
--- NOTE | 2019-05-19 10:48 | DI.NM_ITS ---
APPROVED REPORT Exam: Pharmacologic Patient Location: In-Patient Room/Bed: Stress Nurse: Keerthi Duarte RN BMI: 37.65 Baseline Rhythm: Sinus rhythm Indications: Chest pain. Medical History Medical History: Angina, Diabetes, HTN, Hyperlipidemia Allergies: Penicillin. Duloxetine. Lisinopril. gabapentin. Pregabalin. Methylprednisolone. Cardiac Risk Factors: HTN, Hyperlipidemia, DM, FHX of CAD Pretest Chest Pain Characteristics: Non-exertional Chest pain Exercise History: Physically active Physical Disabilities: Unable to walke on treadmill due to painfull gout in great toe. Lung Sounds: Clear to auscultation Heart Sounds: Regular Stress Test Details Test: Pharmacologic stress testing performed using 0.4 mg of regadenoson per 5 mL given IV over 10 s econds. Nuclear Acquisition: Rest Tc-99m/Stress Tc-99m 1 day Rest Isotope: Tc-99m Sestamibi. Dose: 14.8 Date: 05/19/2019 Injection Time: 0915 Stress Isotope: Tc-99m Sestamibi. Dose: 47.0 Date: 05/19/2019 Injection Time: 1117 HR Max Heart Rate (APMHR): 176 bpm Resting HR Supine: 56 bpm Target HR (85% APMHR): 149 bpm Max HR Achieved: 107 bpm % of APMHR: 60 Recovery HR: 67 bpm BP Resting BP Supine: 130/88 mmHg Max BP: 162/80 mmHg BP response to stress: Normal blood pressure response to stress. ECG Resting ECG: Sinus Bradycardia ST Change: No significant ST segment changes noted Recovery ECG: Sinus Rhythm Recovery ST Change: No significant ST segment changes noted Clinical Stress Symptoms: Headache Stress ECG Conclusion 1. There was no evidence of ischemia on the ECG portion of this exam. Protocol Used: Regadenoson Stress Test Summary STAGE HR BP Symptoms NOTES Supine 56 130/88 Standing 1 min post lexiscan injection 107 162/80 2 min 3 min post lexiscan injection 76 142/90 4 min 5 min 6 min post lexiscan injection 67 140/80 MPI Conclusion Ejection fraction was 50% with no wall motion abnormalities. There is no evidence of ischemia on the imaging portion of this exam. This represents a normal SPECT imaging study. Radiologist Interpretation Radiologist agrees with Spanish Instructor's Interpretation. Radiologist Interpretation by: Savita Devine MD Interpretation Date/Time: 05/20/2019 14:54:19
[2019-05-19] MEDS: Regadenoson 0.4 MG/5 ML SYR IVP (11:12)
[2019-05-19] MEDS: Acetaminophen 325 MG TAB PO (12:40)
[2019-05-19] MEDS: Ibuprofen 400 MG TAB PO (12:40)
--- NOTE | 2019-05-19 15:32 | W.NUTCONSULT ---
Date of service: 05/19/19 Time of Service: 15:32 Nutritional Consult ASSESSMENT: 44 year old male admitted with atypical chest pain. PMH: anxiety, IBS, GERD, HTN, obesity, prediabetes, gout. BMI indicates class 2 obesity. Strong family history of Diabetes. Met with Devon today that reports that he has had IBS for a long time and eats only once time a day. He does not eat during day as it causes him pain and can only eat once he is home and can go to bed right way. Reports no weight loss. Diet recall indicates typically eats home cooked meal, some convenience foods. Has tried gluten free diet but did not change his stomach pain after eating. Recent labs indicate metabolic syndrome- elevated triglycerides, blood sugars, lipids, cholesterol, low HDL putting him at risk for CAD. Hgb, WBC wnl. Had celiac panel done in 2018, negative for celiac disease. Devon reports he recently went off antibiotics for diverticulitis. He is unable to do sports or eat out due to pain and joint inflammation. Reports right toe swollen due to gout. He reports that his IBS/joint pain/stomach pain limits his activities daily. He is at high nutritional risk in view of poor intake, abnormal lipids and blood sugars putting him at risk for CAD. Devon is not meeting nutrient needs at this time, suspect diet is low in most vitamins/minerals and probiotics needed for healthy gut. Recommended increase anti inflammatory foods, probiotics and to follow up with MD to discuss possible referral to psychiatrist IBS symptoms linked to depression/anxiety. Provided him with information on the gut- stomach connection and resources that may be helpful to him. Also recommended meditation/breathing exercises to help with anxiety. INTERVENTION: provided education on IBS, anti inflammatory foods. provided outpatient nutrition counseling contact info MONITORING AND EVALUATION: po intake Time Spent in Nutritional Counseling and Treatment: 45 min face to face
--- NOTE | 2019-05-19 15:34 | NUR.NOTE ---
Nursing Note: Patient stated the little quirino with glasses is sending me home. He has removed his tele, and gotten dressed. No orders to dc yet
--- NOTE | 2019-05-19 15:39 | CHAPLAIN ---
Devon was sitting up in a chair when I visited. Dr. Zarate came in to let Devon know that his testing showed that he did not have a heart attack and was not having an impending heart attack. Devon said he was relieved, but also disappointed that a specific cause for his chest pain was not determined. His sister is Hazel Rubio, an [employer] [employer] Fabrication [employer]der, and their mom a few months ago. We talked about emotional pain can have physical effects, although he said he's had chest pain for about a year. We also talked about things he might do that are relaxing for him, like playing with his puppies. He said sometimes he keeps moving so that he doesn't have to think about his mom, so we talked about what it might be like to stop and think about her, and what he's feeling, for a short time, and then go on to something relaxing like playing with his dogs or taking a walk or visiting Hazel. He identified Hazel as someone he can call when he begins to have chest pain. Devon will be discharged later today.
[2019-05-19 15:53] VITALS: PULSE 82
--- NOTE | 2019-05-19 17:10 | INITIAL_ITS ---
- If Service Date Differs Date of service: 05/19/19 Time of Service: 17:11 Care Management Initial Assess REASON FOR HOSPITALIZATION:: Chest Pain PAST MEDICAL HISTORY/PAST SURGICAL HISTORY:: Medical History . Anxiety (Chronic 10/07/13). 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 Carpal tunnel syndrome of right wrist (Chronic 10/31/17). Chronic back pain (Chronic 10/07/13). MRI lumbar spine 12/22/13 L4-L5 disc bulge with a small seft paracentral disc extrusion with inferior migration of disc material. The disc material appears to abut the L5 nerve root. 10/18/15 Lumbar spondylosis L4-L5, left. Dental caries (Resolved). Esophageal reflux (Chronic). neg, HPylori. Essential hypertension (Chronic 02/16/15). Family history of diabetes mellitus (Resolved 10/07/13). Idiopathic scoliosis (Chronic). Obesity (BMI 30- 39.9) (Chronic 11/15/17). Prediabetes (Chronic). Surgical History . Appendectomy. H/O lumbosacral spine surgery (Acute). Left L4-5 ton-laminotomy with a medial facetectomy for left sciatica; 10/18/[address] Menendez. Myringotomy w/ PE (pressure equalizing) tubes. age 5. Tonsillectomy PREVIOUS FUNCTIONAL STATUS/SOCIAL/FAMILY SUPPORTS:: Devon lives in [place], alone with his six pets- four dogs and two cats. He reported that he is recently . He works at a restaurant in [place]. He has very supportive family members, including his sister, Hazel, who is a RN CM at [employer]. He is independent at baseline. CURRENT FUNCTIONAL STATUS:: Devon was sitting up in his chair when CM met with him. He was pleasant and engaged in conversation. He reported that he had just returned from testing, and was awaiting results to determine if he will go home today, which is his goal. Per MD, his results were negative, and he will return home today with no services. He is agreeable to the plan. ADVANCE DIRECTIVES:: None on file. Has patient been provided with information about the portal?: Yes Did the patient sign up for the portal?: Yes (previously signed up) CODE STATUS:: Full Code INSURANCE COVERAGE / FINANCIAL ISSUES:: JADYN/Fin Assist 100% CURRENT HOME/COMMUNITY SERVICES/EQUIPMENT:: No current services or equipment at this time. PRIMARY CARE PHYSICIAN:: Nik Casas POTENTIAL DISCHARGE NEEDS:: Evaluations for further needs, follow up appointments PATIENT/FAMILY EDUCATION NEEDS:: Review discharge instructions regarding activity and medications, discussion of self care needs including ask me three ANTICIPATED BARRIERS TO DISCHARGE:: None identified at this time. TRANSPORTATION:: Anticipate Devon will drive himself home vs transport by family via private vehicle. PLAN:: Anticipate Devon will return home when medically cleared with no additional services. He will drive himself home when ready. He will follow up with his PCP, as recommended. CM will continue to follow.
--- NOTE | 2019-05-19 17:41 | PDOC.CMDIS ---
- If Service Date Differs Date of service: 05/19/19 Time of Service: 17:41 LACE Index Scoring Tool - Questions: Length of Stay (in days): 2 Acuity (Admit via E.D.?): Yes E.D. Visits: 3 - Answers: Total Score: 8 Risk of Readmission: Low Risk Care Management Discharge Reason for Hospitalization: Chest Pain Discharge Plan: Devon will return home with no additional services at this time. He will follow up with his PCP, as recommended. He will drive himself home via private vehicle. He is agreeable to the plan. Patient/Family Education Needs: Review discharge instructions regarding activity and medications, discussion of self care needs including Ask Me Three
--- NOTE | 2019-05-19 19:03 | W.PM.DS.N ---
Date of service: 05/19/19 Time of Service: 19:03 DS: Diagnosis Discharge Diagnosis (1) Gout: Status: Chronic Asessment and Plan: Treated with colchicine. Overall improvement of redness and swelling. Continues to have pain in the left first toe. (2) Atypical chest pain: Status: Acute Asessment and Plan: MPI today was normal. Appears to be an atypical form of chest pain. There is a distinct chest wall component. There is an association with anxiety. Discharged with PPI therapy, sublingual nitroglycerin, Klonopin. Discharge Plan Disposition Patient Disposition: HOME Condition: Stable Discharge Details Chief Complaint: Chest Pain Reason For Visit: CHEST PAIN Admit Date/Time: 05/18/19 15:30 Admit Provider: Osman Grande Attending Provider: Osman Grande Primary Care Provider: Nik Casas ED Provider: [facility] Course Hospital Course: This is a 44-year-old male that presented with left great toe pain present for 1 week. He was diagnosed with gout and started on colchicine. During his work-up he mentioned that he had been having chest pain with intercourse for about a year and a half. He gets a squeezing sensation and tightness in his chest. In the emergency room he received 3 nitroglycerin with resolution of his pain. Serial troponins were negative. He underwent MPI testing on 05/19/2019 which was completely negative. He describes palpitation and dyspnea with his chest pains which feel like someone is ripping my heart out. He states his chest gets real hard. His symptoms can occur with or without physical activity. He has seen a neurologist and he has been referred to [facility] neurology, awaiting an appointment. He describes a similar episode while waiting for an MRI at [facility] and was hospitalized overnight. He is discharged on a proton pump inhibitor, colchicine, low-dose aspirin, as needed nitro. Continue Klonopin. Further follow-up with his PCP. Home Meds and New Rx's Prescriptions: New colchicine [Colcrys] 0.6 mg Tablet 0.6 mg PO BID 3 Days Qty: 6 RF: 0 nitroglycerin [Nitrostat] 0.4 mg Tablet, Sublingual 0.4 mg sublingual Q5 MIN PRN X3 PRN (Reason: chest pain) Qty: 30 RF: 0 Protonix [address] for susp in packet 40 mg PO DAILY Qty: 30 RF: 0 aspirin [Aspir-81] 81 mg tablet,delayed release (DR/EC) 81 mg PO DAILY Qty: 30 RF: 0 Continued clonazepam 0.5 mg tablet 0.5 mg PO QID Qty: 120 RF: 1 ibuprofen 800 mg tablet 400 mg PO TID PRN (Reason: pain) RF: 0 Discharge Instructions Instructions: Chest Wall Pain (GEN) Stand Alone Forms: Nursing Discharge Form Referrals: Nik Casas MD [Primary Care Provider] - 05/22/19 1:40 pm Activity:: Activity as Tolerated Equipment/Supplies:: No Equipment Needed Diet:: As Tolerated Discharge Orders Discharge Orders: Discharge Order (Routine); Ordered 05/19/19 Ordered By: Ramses Zarate Discharge Data Discharge Date/Time-TO BE ENTERED AT DEPARTURE: 05/19/19 16:20 DS: Summary Status at Discharge Functional status at discharge: independent ambulation Overall status at discharge: patient is back to baseline Mental Status: mental status grossly normal Speech and Movement: speech and movement normal Mood: congruent mood Affect: normal affect Time Spent with Patient providing and/or coordinating discharge services: Greater than 30 minutes Exam Narrative Exam Narrative: Exam on day of discharge was primarily observation of patient sitting comfortably in the chair. He had no respiratory distress dressed. He did get some of that chest tightness during our conversation. He showed no change in vital signs. His labs showed no up trending of his troponin levels. His EKGs remained stable. His MPI testing showed a preliminary result of normal. Psych Mental Status: mental status grossly normal Speech and Movement: speech and movement normal Mood: congruent mood Affect: normal affect DS: Data Vitals/I&O Vitals and I&O: Vital Signs Temperature 36.8 C 05/19/19 07:20 Temperature Source Tympanic 05/19/19 07:20 Pulse 82 05/19/19 15:53 Pulse Rhythm Regular 05/19/19 10:23 Pulse 58 L 05/18/19 15:30 Respiratory Rate 16 05/19/19 07:20 Respiratory Effort Non-Labored 05/19/19 10:23 Respiratory Depth Normal 05/19/19 10:23 Respiratory Pattern Normal 05/19/19 10:23 Blood Pressure 121/82 05/19/19 07:20 Blood Pressure Mean 98 01/27/20 15:16 Pulse Oximetry 98 05/19/19 07:20 Oxygen Delivery Method Room Air 05/19/19 07:20 Oxygen Flow Rate 0 05/19/19 07:20 Pain Level 5 05/19/19 12:40 Intake & Output 05/18/19 05/19/19 05/19/19 23:59 11:59 23:59 Intake Total 1316.667 / 1316.667 460 / 460 Output Total 375 / 925 Balance 941.667 / 391.667 460 / 460 Weight 122.47 kg 124.1 kg Intake: IV 1316.667 / 1316.667 10 10 Oral 450 / 450 Output: Urine 375 / 925 Other: Urine Appearance Clear Clear Comment voids independently. 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 The disc material appears to abut the L5 nerve root. 10/18/15 Lumbar spondylosis L4-L5, left Dental caries (Resolved) Esophageal reflux (Chronic) neg, HPylori Essential hypertension (Chronic 02/16/15) Family history of diabetes mellitus (Resolved 10/07/13) Idiopathic scoliosis (Chronic) Obesity (BMI 30-39.9) (Chronic 11/15/17) Prediabetes (Chronic) Surgical History Appendectomy H/O lumbosacral spine surgery (Acute) Left L4-5 ton-laminotomy with a medial facetectomy for left sciatica; 10/18/[address] Menendez Myringotomy w/ PE (pressure equalizing) tubes age 5 Tonsillectomy Family History Other Diabetes Social History Smoking/Tobacco Use Status: Never Alcohol Intake: never Drug use: Never Substance use type: does not use Household members: spouse current occupation: Owns [employer] in [place] Do you feel safe in your relationship?: Yes
== END 2019-05-19 16:20 | disposition home or self-care (01) ==
LOC: ER 15:52 → MS 16:01
PROVIDERS: Admitting Provider Internal Medicine; Emergency Provider Student in an Organized Health Care Education/Training Program; PCP Family Medicine; Visit Provider Family Medicine
DX: R07.89 Other chest pain (principal); M10.9 Gout, unspecified; F41.9 Anxiety disorder, unspecified; I10 Essential (primary) hypertension; K21.9 Gastro-esophageal reflux disease without esophagitis
CPT/HCPCS: 36415; 78452; 80053; 80061; 82947; 87449; 93005; 96360; 96361; 99220; 99239; 99285; J1650; 71046; 83036; 83735; 83880; 84484; 85025; 85379; 93010; 93017; 99217; G0378; J2785

== ENCOUNTER 2019-05-27 02:58 | Outpatient (CLI) | payer MEDICAID, SELFPAY | END 2019-05-27 03:18 | PROVIDERS: PCP Family Medicine; Visit Provider Family Medicine | DX: R00.2 Palpitations (principal) | CPT/HCPCS: 93225 ==

== ENCOUNTER 2019-06-01 09:02 | Outpatient (CLI) | payer MEDICAID, SELFPAY ==
--- NOTE | 2019-06-01 11:18 | W.HOLTRPT ---
Date of service: 06/01/19 Time of Service: 11:18 Holter Monitor Report Holter Monitor Note: This is a 2-day Holter monitor ordered for indication of palpitations. ?The patient was in normal sinus rhythm for the majority of the recording. ?There were 0 episodes of supraventricular tachycardia. ?There were 0 episodes of ventricular tachycardia and rare (less than 1%) single ventricular ectopic events. ?There were no episodes of atrial fibrillation no pauses greater than 3 seconds and no evidence of high degree heart block. ?There were no patient triggered events.
== END 2019-06-01 09:22 ==
PROVIDERS: PCP Family Medicine; Visit Provider Family Medicine
DX: R00.2 Palpitations (principal)
CPT/HCPCS: 93226

== ENCOUNTER 2019-09-02 03:32 | Outpatient (CLI) | payer MEDICAID, SELFPAY ==
[2019-09-02 14:08] LABS: TSH 1.82 uIU/mL (0.36-3.74); Uric Acid 4.5 mg/dL (3.5-7.2)
[2019-09-02 21:58] LABS: T3,Free 3.2 pg/mL (2.8-5.3)
[2019-09-05 14:23] LABS: Testosterone, Total 376 ng/dL (240-950)
== END 2019-09-02 03:52 ==
PROVIDERS: PCP Family Medicine; Visit Provider Family Medicine
DX: R53.83 Other fatigue (principal); M10.9 Gout, unspecified; R79.89 Other specified abnormal findings of blood chemistry
CPT/HCPCS: 36415; 84403; 84443; 84481; 84550

== ENCOUNTER 2020-02-17 03:43 | Outpatient (CLI) | payer MEDICAID, SELFPAY ==
[2020-02-17 17:35] LABS: Abs Immature Grans 0.02 10^3/uL (0.0-0.06); Absolute Basophil Count 0.03 10^3/uL (0.0-0.2); Absolute Eosinophil Count 0.08 10^3/uL (0.0-0.7); Absolute Lymphocyte Count 2.14 10^3/uL (1.2-3.4); Absolute Monocyte Count 0.33 10^3/uL (0.1-0.8); Absolute Neutrophil Count 4.15 10^3/uL (1.2-6.7); Basophils % 0.4; Eosinophils % 1.2; HGB 16.6 g/dL (13.5-17.5); Immature Grans % 0.3; Lymphocytes % 31.7; MCH 29.4 pg (27.0-33.0); MCHC 34.6 % (32.0-36.0); MCV 85.1 fL (80-95); MPV 9.5 fL (8.0-11.0); Monocytes % 4.9; Neutrophils % 61.5; Nucleated RBC 0 %; Platelet Count 246 10^3/uL (130-400); RBC 5.64 10^6/uL (4.36-5.78); RDW 12.5 % (11.8-14.1); RDW-SD 38.5 fL; WBC 6.75 10^3/uL (4.4-10.8)
[2020-02-17 17:53] LABS: Hemoglobin A1C 6.3 % (<5.7)
[2020-02-17 18:25] LABS: Iron 94 ug/dL (65-175); Total Iron Binding Capacity 352 ug/dL (250-450); Transferrin Sat 27 % (20-55)
[2020-02-17 18:40] LABS: ALT 28 U/L (16-63); AST 18 U/L (15-37); Albumin 4.5 g/dL (3.4-5.0); Alkaline Phosphatase 74 U/L (46-116); Anion Gap 6.1 mmol/L (3-11); BUN 15 mg/dL (7-18); Bilirubin, Total 0.6 mg/dL (0.2-1.0); CO2 30.9 mmol/L (21.0-32.0); Calcium 9.1 mg/dL (8.5-10.1); Chloride 100 mmol/L (98-107); Ferritin 125 ng/mL (26-388); Folate 3.3 ng/mL (8.6-20.0); Glucose 120 mg/dL (74-106); Potassium 4.3 mmol/L (3.5-5.1); Sodium 137 mmol/L (136-145); TSH 1.91 uIU/mL (0.36-3.74); Total Protein 7.5 g/dL (6.4-8.2); Vitamin B12 220 pg/mL (193-986)
[2020-02-17 19:03] LABS: FREE T4 0.91 ng/dL (0.76-1.46)
[2020-02-18 04:27] LABS: Vitamin D 25 Total 22.3 ng/ml (30-100)
[2020-02-19 18:39] LABS: Zinc, Serum 0.86 mcg/mL (0.66-1.10)
[2020-02-19 18:40] LABS: Copper, Serum 1.15 mcg/mL (0.75-1.45)
[2020-02-23 12:05] LABS: T3,Free 3.75 pg/mL (2.8-5.3)
[2020-02-25 10:15] LABS: Thyroglobulin Antibody <15 U/mL (<or=60); Thyroperoxidase Antibody 28.4 U/mL (<or=60)
[2020-02-25 10:18] LABS: DHEA Sulfate 38 ug/dL
[2020-02-25 12:43] LABS: IgA 129 mg/dL (84.5-499); IgG 990 mg/dL (610-1616); IgM 59 mg/dL (35-242)
[2020-02-25 15:38] LABS: Pyridoxal 5-Phosphate (PLP), P 5 mcg/L (5-50)
[2020-02-26 12:51] LABS: Insulin 14.1 uU/mL (<29)
== END 2020-02-17 04:03 ==
PROVIDERS: PCP Nurse Practitioner; Visit Provider Naturopath
DX: R53.83 Other fatigue (principal); R73.03 Prediabetes; F41.1 Generalized anxiety disorder; G62.9 Polyneuropathy, unspecified; Z88.9 Allergy status to unspecified drugs, medicaments and biological substances
CPT/HCPCS: 36415; 80053; 81291; 82306; 82627; 82784; 82525; 82607; 82728; 82746; 83036; 83525; 83540; 83550; 84207; 84439; 84443; 84481; 84630; 85025; 86376; 86800

== ENCOUNTER 2020-03-10 00:43 | Outpatient (CLI) | payer MEDICAID, SELFPAY ==
--- NOTE | 2020-03-10 07:15 | DI.MRI_ITS ---
EXAM: MR LUMBAR SPINE WO CLINICAL HISTORY: radiculopathy,LOW BACK PAIN,M54.5. TECHNIQUE: Multiplanar multisequence MRI of the Lumbar spine was performed. COMPARISON: CT CT ABDOMEN PELVIS W from 04/17/2019 FINDINGS: Bones: The last intervertebral disc space is designated the L5/S1 level for the numbering purpose of this examination. The vertebral body heights are well maintained. Alignment is satisfactory. Mild d egenerative endplate signal changes are noted at multiple levels. Cord: The conus tip ends at the L1 level. It is of normal size and signal intensity. T12-L1: No disc herniations or bulges are present. No central spinal canal or neural foraminal stenos is. L1-2: No disc herniations or bulges are present. No central spinal canal or neural foraminal stenosis . L2-3: No disc herniations or bulges are present. No central spinal canal or neural foraminal stenosis . L3-4: No disc herniations or bulges are present. No central spinal canal or neural foraminal stenosis . L4-5: There is a left paracentral disc herniation with extrusion posterior to the L5 vertebral body. It does cause left lateral recess stenosis and compresses the left L5 nerve root. No significant ce ntral spinal canal stenosis is seen. There is mild left neural foraminal stenosis. L5-S1: No disc herniations or bulges are present. No central spinal canal or neural foraminal stenosi s. Soft tissues: The visualized SI joints and sacrum are well maintained. The paraspinal soft tissues ar e unremarkable. IMPRESSION: Left paracentral disc herniation at L4-L5 with extrusion posterior to the L5 vertebral body. It caus es left lateral recess stenosis and compresses the left L5 nerve root. DATA REPOSITORY:
--- NOTE | 2020-03-10 07:15 | DI.MRI_ITS ---
EXAM: MR CERVICAL SPINE WO CLINICAL HISTORY: right ton paraesthesias,M54.10 TECHNIQUE: Multiplanar multisequence MRI of the cervical spine was performed without intravenous con trast. COMPARISON: MR MR SPINE CERVICAL WO CONTRAST from 08/31/2019 FINDINGS: BONES: Vertebral body heights are maintained. Intervertebral disc spaces are normal. There is again s een straightening of the normal cervical lordosis. This may be due to patient positioning. Bone mar row signal intensity is within normal limits. CERVICAL CORD: Craniovertebral junction is unremarkable. The cervical cord is normal size and signal intensity. SOFT TISSUES: Unremarkable. C2-3: No disc herniation or bulge is identified. No significant central spinal canal or neural forami nal stenosis. C3-4: No disc herniation or bulge is identified. No significant central spinal canal or neural forami nal stenosis C4-5: No disc herniation or bulge is identified. No significant central spinal canal or neural forami nal stenosis C5-6: There is mild prominence of the osteophyte disc complex. No significant central spinal canal o r right neural foraminal stenosis is seen. There are hypertrophic changes of the left uncovertebral joint causing mild narrowing of the left neural foramen. C6-7: There has been interval increase in size of the right paracentral disc herniation. There is ex trusion of the disc posterior to the C6 vertebral body. It causes right lateral recess stenosis. Th ere is some extension into the right neural foramen. There is resultant impingement on the spinal co rd and narrowing of the central spinal canal and right neural foramen. No significant left neural fo raminal stenosis is seen. C7-T1: No disc herniation or bulge is identified. No significant central spinal canal or neural juanpablo inal stenosis IMPRESSION: Interval increase in size of the right paracentral disc herniation. There is extrusion of the disc p osterior to the C6 vertebral body. There is resultant right lateral recess stenosis, central spinal canal and right neural foraminal narrowing. DATA REPOSITORY:
--- NOTE | 2020-03-10 07:22 | DI.MRI_ITS ---
EXAM: MR THORACIC SPINE WO CLINICAL HISTORY: radiculopathy,M54.10. TECHNIQUE: Multiplanar multisequence MRI of the Thoracic spine was performed. COMPARISON: MR MR SPINE CERVICAL WO CONTRAST from 08/31/2019 MR MR LUMBAR SPINE WO from 03/10/2020 FINDINGS: Bones: The vertebral body heights are well maintained. Alignment is satisfactory. Multilevel degenera tive endplate signal changes are present. Cord: The thoracic cord is normal size and signal intensity. No intrinsic cord lesion is present. Discs: Please see below for disc details. Soft tissues: Normal. T1-2: There is a left paracentral disc herniation extending into the left neural foramen causing mild left neural foraminal stenosis. No significant central spinal canal or right neural foraminal steno sis is present. T2-3: There is a mild disc herniation extending into the left neural foramen causing [id number] left neural foraminal stenosis. No significant central spinal canal or right neural foraminal steno sis is present. T4-5: There is a small left paracentral disc herniation. There is mild narrowing of the left neural foramen. No central spinal canal or right neural foraminal stenosis is present. T5-6: There is a small right paracentral disc herniation. No significant central spinal canal or hanna ral foraminal stenosis is present. T6-7: There is a mild diffuse disc bulge but no significant central spinal canal or neural foraminal stenosis is present. T7-8: No significant central spinal canal or neural foraminal stenosis is present. T8-9: There is a small central disc herniation. But no significant central spinal canal or neural fo raminal stenosis is present. T9-10: No significant central spinal canal or neural foraminal stenosis. T10-11:No significant central spinal canal or neural foraminal stenosis T11-12: No significant central spinal canal or neural foraminal stenosis T12-L1: No significant central spinal canal or neural foraminal stenosis IMPRESSION: Multilevel degenerative changes causing multilevel left neural foraminal stenosis as described above. DATA REPOSITORY:
== END 2020-03-10 01:03 ==
PROVIDERS: PCP Nurse Practitioner; Visit Provider Nurse Practitioner
DX: M47.26 Other spondylosis with radiculopathy, lumbar region (principal); M48.061 Spinal stenosis, lumbar region without neurogenic claudication; M51.16 Intervertebral disc disorders with radiculopathy, lumbar region; M50.11 Cervical disc disorder with radiculopathy, high cervical region; R20.2 Paresthesia of skin
CPT/HCPCS: 72141; 72146; 72148

== ENCOUNTER 2020-04-06 11:27 | Emergency (ER) | payer MEDICAID, SELFPAY ==
[2020-04-06 11:36] VITALS: BP 164/106; PULSE 69; RESP 18; TEMP 37.1; O2SAT 98
[2020-04-06 11:45] VITALS: RESP 18
--- NOTE | 2020-04-06 11:45 | RT.EKG_ITS ---
APPROVED REPORT Exam: Resting ECG Patient Location: E HR:56 bpm ECG Measurements Heart Rate 56 AXIS NH 146 P 50 QRSd 89 QRS 4 QT 402 T 33 QTc 390 Conclusion Sinus bradycardia...rate< 60
--- NOTE | 2020-04-06 11:50 | ED.GENADUL_ITS ---
Discharge Plan Disposition Patient Disposition: HOME Condition: Stable Discharge Details Clinical Impression: Herniation of intervertebral disc at C6-C7 level, Cervical nerve root disorder, Arm pain Primary Care Provider: Tabatha Fuller ED Provider: Osman Mejia Home Meds and New Rx's Prescriptions: New methylprednisolone [Medrol (Carl)] 4 mg tablets,dose pack See Rx Instructions .ROUTE .COMPLEX Qty: 21 RF: 0 oxycodone-acetaminophen [Percocet] 7.5-325 mg tablet 1 tab PO Q8H PRNQty: 8 RF: 0 Continued allopurinol 100 mg tablet 100 mg PO DAILY Qty: 90 RF: 3 fluoxetine 20 mg capsule 20 mg PO DAILY Qty: 30 RF: 0 pantoprazole 40 mg tablet,delayed release (DR/EC) 40 mg PO QHS Qty: 60 RF: 3 ibuprofen 400 mg tablet 400 mg PO TID PRN (Reason: pain) Qty: 90 RF: 3 Hold Instructions: Home Medication placed on hold at Doctor's office indomethacin 50 mg capsule 50 mg PO TID Qty: 90 RF: 2 Hold Instructions: Home Medication placed on hold at Doctor's office tramadol 50 mg tablet 50 mg PO QID PRN (Reason: pain) Qty: 120 RF: 0 clonazepam 0.5 mg tablet 0.5 mg PO BID Qty: 60 RF: 0 Discharge Instructions Instructions: Cervical Disc Herniation (ED) Additional Instructions: At this time neurosurgery at [facility], Dr. Powers, does not recommend emergent transfer. Instead at their recommendations we will discharge you from our hospital with a prescription for a Medrol Dosepak, Percocet, and you will continue taking your Indocin as directed. Percocet may cause drowsiness and/or constipation, as well as potential addiction. You may want to take an [id number] stool softener while taking this medication. Cool and/or warm compresses every 2 hours for 20 minutes. I will fax all your information to the neurosurgery clinic, they should be reaching out to you in the next 48 hours to discuss outpatient follow-up within the next 2 weeks. If you do not hear from them personally, please call the clinic at [phone]. Please watch for new new or worsening symptoms and return to the ER for any concerns. Stand Alone Forms: Physical Therapy Referral Discharge Data Discharge Date/Time-TO BE ENTERED AT DEPARTURE: 04/06/20 18:25 Medical Decision Making <Umm Shirley - Last Filed: 04/08/20 08:27> 45-year-old male presents to the ED with chief complaint of right arm pain. He states approximately 5 days ago his pain increased and is worse than his chronic nerve pain. He also endorses some right sided facial numbness and tingling. He does have a history of C6 and 7 disc herniation he has had MRIs of his C, T, L-spine just this last February 2020. He notes some erythema and red and warm spots noted to his arm. Also noted little bit of mottling. He does take indomethacin for gout and allopurinol as needed. He takes tramadol 4 times a day on a regular basis. He did take half a tablet approximately 2 hours ago. Past medical history includes hypertension, anxiety, carpal tunnel syndrome, GERD, chronic back pain. Differential diagnosis includes DVT, gout, cervical radiculopathy, CVA, musculoskeletal pain. 1316: Lab work is largely within normal limits, patient appears much more co mfortable after morphine injection. CT head and neck is largely unremarkable. Page out to Guerda Alcazar MD Neuro surgeon who is not in today. Will consider repeat MRI of C-spine if available due to patient's worsening symptoms. MRI C-spine FINDINGS: CERVICOMEDULLARY JUNCTION: Intact with no evidence of cerebellar tonsillar ectopia. No obvious abnormality of the odontoid process. No evidence of Chiari 1 malformation. CERVICAL SPINAL CORD: There is no abnormal signal in the cervical spinal cord and no evidence of focal cord atrophy nor focal cord swelling. OSSEOUS:There are no cervical fractures evident. No significant osseous lesions in the cervical vertebrae. INDIVIDUAL LEVELS: C2-3: No disc herniation nor central canal stenosis. No foraminal stenosis. No facet arthropathy. C3-4: No disc herniation nor central canal stenosis.No facet arthropathy. No foraminal stenosis. C4-5: No disc herniation nor central canal stenosis.No facet arthropathy. No foraminal stenosis C5-6: No no significant disc herniation or central canal stenosis. No prominent facet arthropathy. No prominent foraminal stenosis. C6-7: The previously described prominent right paracentral disc herniation is again noted, again noted to be causing right lateral recess stenosis and narrowing of the exiting right neural foramen. There is impingement of the spinal cord and central canal and right neural foramen. This large disc protrusion distends cephalad almost to the C5-6 level behind the C6 vertebral body. C7-T1: No disc herniation nor central canal stenosis. No facet arthropathy.No foraminal stenosis. IMPRESSION: 1. There is a prominent right paracentral disc herniation again noted at C6-7 level. This causes significant stenosis of the right lateral recess as well as an element of impingement on the spinal cord + canal stenosis + ipsilateral right-sided foraminal stenosis at this level. 2. There does not appear to be significant signal abnormality in the spinal co rd. Also no evidence of focal cord swelling nor cord atrophy. Findings discussed with ER provider. 1447: [facility] transfer center paged for Neurosurgery consult and request for transfer. 1603: Spoke with Neurosurgeon with [facility], discussed the patient case and details with her, she will call me back after personally viewing the MRI images. 1709: Care to be handed off to oncoming provider Osman ISBELL pending neurosurgery consult and possible transfer. Discussed case and details with him, verbalized understanding. Medical Records Medical records reviewed: Yes I reviewed the patient's medical records. Medical records narrative: MRI C-spine reviewed from February 2020. a MRI:MR cervical spine wo EXAM: MR CERVICAL SPINE WO CLINICAL HISTORY: right ton paraesthesias,M54.10 TECHNIQUE: Multiplanar multisequence MRI of the cervical spine was performed without intravenous contrast. COMPARISON: MR MR SPINE CERVICAL WO CONTRAST from 08/31/2019 FINDINGS: BONES: Vertebral body heights are maintained. Intervertebral disc spaces are normal. There is again seen straightening of the normal cervical lordosis. This may be due to patient positioning. Bone marrow signal intensity is within normal limits. CERVICAL CORD: Craniovertebral junction is unremarkable. The cervical cord is normal size and signal intensity. SOFT TISSUES: Unremarkable. C2-3: No disc herniation or bulge is identified. No significant central spinal canal or neural foraminal stenosis. C3-4: No disc herniation or bulge is identified. No significant central spinal canal or neural foraminal stenosis C4-5: No disc herniation or bulge is identified. No significant central spinal canal or neural foraminal stenosis C5-6: There is mild prominence of the osteophyte disc complex. No significant central spinal canal or right neural foraminal stenosis is seen. There are hy pertrophic changes of the left uncovertebral joint causing mild narrowing of the left neural foramen. C6-7: There has been interval increase in size of the right paracentral disc herniation. There is extrusion of the disc posterior to the C6 vertebral body. It causes right lateral recess stenosis. There is some extension into the right neural foramen. There is resultant impingement on the spinal cord and narrowing of the central spinal canal and right neural foramen. No significant left neural foraminal stenosis is seen. C7-T1: No disc herniation or bulge is identified. No significant central spinal canal or neural foraminal stenosis IMPRESSION: Interval increase in size of the right paracentral disc herniation. There is extrusion of the disc posterior to the C6 vertebral body. There is resultant right lateral recess stenosis, central spinal canal and right neural foraminal narrowing. <Raghu Patricio MD - Last Filed: 04/06/20 16:17> Patient seen, examined, and discussed with RANJIT Shirley. Patient with significant pain and paresthesias of his right upper extremity worsening over the past 2 days. I agree with treatment plan as discussed/documented. I recommended discussion with neurosurgery at [facility] for transfer and neurosurgical assessment. <AKILAH Gillette - Last Filed: 04/06/20 18:17> I assumed care of this 45-year-old gentleman from my colleague RANJIT Shirley at shift change. Please refer to her initial HPI and examination for additional information. At time of shift change a call has already been placed to [facility] neurosurgery for consultation and potential transfer. They have already spoken with RANJIT Shirley, they would like to review the images and then will call us back with further information. In the meantime patient reports his pain is increasing, he was given additional 4 mg IV morphine. Patient does remain hemodynamically stable, is using his cell phone during my assessment. I received a phone call at [address] Powers, neurosurgery at [facility]. At this time they do not recommend transfer. They are recommending 6 mg of Decadron here in the ER, discharged with a Medrol Dosepak, outpatient physical therapy, and additional analgesia such as narcotics and NSAIDs at my discretion. They will follow Mr. Shields as an outpatient in their clinic within the next 2 weeks. They would like my completed note faxed to their referral center at [phone]. They would also like me to give the patient their clinic number so that if he does not hear from them in the next couple of days she can personally reach out to them at [phone]. Case and disposition were discussed with Dr. Patricio who was involved in the case earlier with RANJIT Shirley. Both Dr. Patricio and myself discussed the neurosurgery consultation and suggestions. He is frustrated because he feels as though he will not be able to adequately control his pain at home and he wishes that they would accept his transfer because he believes that he needs surgery. We certainly share his concerns but explained to him that we cannot transfer him to another facility without excepting physician. The best we can do at this time is to follow the recommendations from the specialty team. We will provide prescription for analgesia. I will provide a PT referral. We encouraged him to return to our ER for any new or evolving symptoms but did explain to him that we do not have a neurosurgery team here and that the 2 closest facilities that you have these capabilities would be [facility] or [facility]. Patient has no additional questions or concerns. He received 6 IV Decadron and 30 IV Toradol prior to discharge. Medical Records Medical records reviewed: Yes I reviewed the patient's medical records. HPI <Umm Shirley - Last Filed: 04/08/20 08:27> General Mode of arrival: ambulatory . Date/Time Provider Initiated Documentation: 04/06/20 11:28 . Limitations to Documentation: no limitations . Information obtained by: patient . HPI Narrative: 45-year-old male presents to the ED with chief complaint of right arm pain. He states approximately 5 days ago his pain increased and is worse than his chronic nerve pain. He describes pain as aching and like my arm is going through a meat washer. He also endorses some right sided facial numbness which began 2 days ago. He does have a history of C6 and 7 disc herniation he has had MRIs of his C, T, L-spine just this last February 2020. He notes some erythema and red and warm spots noted to his arm. 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 He works at a [employer]. He does take indomethacin for gout and allopurinol as needed. He takes tramadol 4 times a day on a regular basis. He did take half a tablet approximately 2 hours ago. Past medical history includes hypertension, anxiety, carpal tunnel syndrome, GERD, chronic back pain. Related Data Home Medications Medication Instructions Recorded Confirmed allopurinol 100 mg tablet 100 mg PO DAILY #90 tab 05/29/19 04/06/20 pantoprazole 40 mg tablet,delayed 40 mg PO QHS #60 tab 12/23/19 04/06/20 release ibuprofen 400 mg tablet 400 mg PO TID PRN #90 tab 01/21/20 04/06/20 indomethacin 50 mg capsule 50 mg PO TID #90 cap 01/21/20 04/06/20 fluoxetine 20 mg capsule 20 mg PO DAILY #30 cap 02/25/20 04/06/20 clonazepam 0.5 mg tablet 0.5 mg PO BID #60 tab 03/22/20 04/06/20 tramadol 50 mg tablet 50 mg PO QID PRN #120 tab 03/22/20 04/06/20 methylprednisolone [Medrol (Carl)] See Rx Instructions .ROUTE 04/06/20 .COMPLEX #21 dose pk oxycodone-acetaminophen [Percocet] 1 tab PO Q8H PRN #8 tab 04/06/20 Previous Rx's Medication Instructions Recorded allopurinol 100 mg tablet 100 mg PO DAILY #90 tab 05/29/19 pantoprazole 40 mg tablet,delayed 40 mg PO QHS #60 tab 12/23/19 release ibuprofen 400 mg tablet 400 mg PO TID PRN #90 tab 01/21/20 indomethacin 50 mg capsule 50 mg PO TID #90 cap 01/21/20 fluoxetine 20 mg capsule 20 mg PO DAILY #30 cap 02/25/20 clonazepam 0.5 mg tablet 0.5 mg PO BID #60 tab 03/22/20 tramadol 50 mg tablet 50 mg PO QID PRN #120 tab 03/22/20 methylprednisolone [Medrol (Carl)] See Rx Instructions .ROUTE 04/06/20 .COMPLEX #21 dose pk oxycodone-acetaminophen [Percocet] 1 tab PO Q8H PRN #8 tab 04/06/20 Allergies Allergy/AdvReac Type Severity Reaction Status Date / Time Penicillins Allergy Intermediate Hives Unverified 04/06/20 11:43 duloxetine AdvReac Severe Headache, Unverified 04/06/20 11:43 muscle spasm methylprednisolone AdvReac Severe GI upset, Unverified 04/06/20 11:43 [From Medrol] body aches pregabalin [From Lyrica] AdvReac Severe severe flu Unverified 04/06/20 11:43 like symptoms gabapentin AdvReac Intermediate stomach, Unverified 04/06/20 11:43 body aches lisinopril AdvReac Intermediate Burning Unverified 04/06/20 11:43 hands and feet. Malaise General Stated Complaint: Vascular BRETT: 3 Review of Systems <Umm Shirley - Last Filed: 04/08/20 08:27> Narrative: Constitutional: Negative for weight loss, alert and oriented, well groomed, normal body habitus, appears comfortable. HEENT: Denies trauma, headaches, blurry vision, nasal discharge, sore throat, trouble swallowing. Reports right sided facial numbness. Chest: Denies chest pain, palpitations, irregular rhythm, hypertension. Respiratory: Denies Shortness of breath, cough, hemoptysis. GI: Denies abdominal pain, nausea, vomiting, diarrhea, constipation. Musculoskeletal: Does have some right paraspinous neck tenderness, right arm tenderness, right arm paresthesias, erythema and warmth. : Denies dysuria, hematuria, flank pain, rectal bleeding. Neuro: Denies dizziness, blurry vision, weakness, syncope, headache or facial numbness. Hematologic: Denies easy bruising, intolerance to heat or cold, hair loss. [facility] <Umm Shirley - Last Filed: 04/08/20 08:27> Medical History Anxiety (10/07/13) Attention deficit hyperactivity disorder (ADHD), predominantly inattentive type (08/06/17) Carpal tunnel syndrome of right wrist (10/31/17) Chronic back pain (10/07/13) MRI 02/2020 -IMPRESSION: Left paracentral disc herniation at L4-L5 with extrusion posterior to the L5 vertebral body. It causes left lateral recess stenosis and compresses the left L5 nerve root. MRI lumbar spine 12/22/13 L4-L5 disc bulge with a small left paracentral disc extrusion with inferior migration of disc material. The disc material appears to abut the L5 nerve root. 10/18/15 Lumbar spondylosis L4-L5, left Dental caries Esophageal reflux neg, HPylori Essential hypertension (02/16/15) Family history of diabetes mellitus (10/07/13) Idiopathic scoliosis Obesity (BMI 30-39.9) (11/15/17) Prediabetes Surgical History Appendectomy H/O lumbosacral spine surgery Left L4-5 ton-laminotomy with a medial facetectomy for left sciatica; 10/18/[address] Menendez Myringotomy w/ PE (pressure equalizing) tubes age 5 Tonsillectomy Family History Mother , 50's Depression Diabetes Father No problems noted. Sister No problems noted. Sister No problems noted. Brother Depression Substance abuse Maternal Grandfather Diabetes Maternal Grandmother , 50's No problems noted. 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 Appears stated age. Normal body habitus. Head: Normocephalic, no trauma. Eyes: Pupils PERRLA, Red reflex noted, EOM's intact. Eyelids symmetrical without lesions, discharge, or swelling. ENT: Bilateral TM's WNL, External ear normal to inspection, no mastoid TTP, swelling, or erythema, Nasal turbinates WNL, no nasal discharge. Normal dentition, Posterior pharynx WNL, no exudate. Chest: RRR, Normal S1, S2, distal pulses intact. Resp: Lungs clear to auscultation bilaterally, no wheezes, rales, or rhonchi. Musculoskeletal: Normal gait, 5/5 strength left social service agency director. 4/5 strength to Right social service agency director. Right arm is erythemic, cap refill approximately 4 seconds, appears slightly mottled. Tender to the touch. He does have some right paraspinous tenderness to his C-spine. Radial pulses 1+ right, 2+ left upper extremities. Skin: No suspicious rashes or lesions. Capillary refill less than 2 sec. Neurologic: Cranial nerves II-XII intact. Alert and oriented x 3. DTR's intact. No facial droop noted, Hematologic/Lymphatic: , no lymphadenopathy. Course <Umm Shirley - Last Filed: 04/08/20 08:27> Vital Signs Vital signs: Vital Signs Temperature 37.1 C 04/06/20 11:36 Pulse 69 04/06/20 11:36 Respiratory Rate 18 04/06/20 11:36 Blood Pressure 164/106 H 04/06/20 11:36 Pulse Oximetry 98 04/06/20 11:36 Temperature 37.1 C 04/06/20 11:36 Pulse 69 04/06/20 11:36 Respiratory Rate 18 04/06/20 11:45 Blood Pressure 164/106 H 04/06/20 11:36 Blood Pressure Position Sitting 04/06/20 11:36 Pulse Oximetry 98 04/06/20 11:36 Oxygen Delivery Method Room Air 04/06/20 11:36 Oxygen Flow Rate 0 04/06/20 11:36 Pain Level 10 04/06/20 11:45 Sign Out <Umm Shirley - Last Filed: 04/08/20 08:27> Sign Out Data: Sign Out Comment: Pending Neuro Surgery consultation and possible transfer versus Follow up as outpatient Last updated by Umm Shirley at 04/06/20 17:08
--- OUTSIDE RECORDS SUMMARY | 2020-04-06 11:54 | XMS_ITS ---
:1975 External Reference #:[id number] Author Care Team Providers Name Role Phone Kaitlynn Primary Care Provider Unavailable Allergies Code Code System Name Reaction Severity Status Onset Penicillin ? ? Active ? Medications Name Status Start Date Stop Date ? ? clonazepam 0.5 mg tablet Active 01/23/2017 Not jeison ilable Take 1 tablet 4 times a day by oral route. indomethacin 50 mg capsule Active 01/21/2019 Not a vailable Take 1 capsule 3 times a day by oral route. pantoprazole 40 mg tablet,delayed release Active 2018 Not available 1 tablet every day by oral route. tramadol 50 mg tablet Active 01/20/2010 Not availa ble 1 tablet every 4-6 hours by oral route. Problems Name Status Onset Date Source ? Gout Active 03/10/2020 ? Generalized Anxiety Disorder Active 03/10/2020 ? Neuropathy Active 03/10/2020 ? Fatigue Active 03/10/2020 ? Prediabetes Active 03/10/2020 ? Allergy to Food Active 03/10/2020 ? History of Multiple Allergies Active 03/10/2020 ? Procedures Date Name Performed by ? ? Appendectomy Information not avai lable ? Back Surgery Information not avai lable ? Colonoscopy Information not avai lable Notes: 2007, 2003 ? Ear Tube Information not avai lable ? Tonsillectomy Information not avai lable Results Lab Results None recorded. Past Encounters 02/25/2020 Fatigue; Generalized Anxiety Disorder; A llergy to Food; Neuropathy Tabby Calderón, ND: [address] [place] [address], Ph. [phone] 02/11/2020 Gout; Fatigue; Generalized Anxiety Disor roma; History of Multiple Allergies; Allergy to Food; Neuropathy; Prediabetes Tabby Calderón, [place]: [address] [place] [address], Ph. [phone] Social History Tobacco Smoking Status Never Smoker Vaccine List Vaccine Type unknown 02/10/2020 Plan of Care Patient Instructions get MRT and stool test done waiting on labs- igE? IgM and IgA ia low - DHEA 5mg/day Folate And B12 1tab/day Bcomplex- 1 cap/day CAll jordan make appt after MRT DNA test for $ 425 Doctors DAta can get 1. Vanessa broth- RACHEL'S BROTH Rachel ann is a wonderful, nurturing a nd calming food that has been used by naturopaths and holistic doctor?s for years during fasting. It helps to nourish and de-acidify the system. Enjoy in limitless amounts. Choose a combination of equal amounts fr om the following vegetables: celery, green beans, zucchini, 1 sprig o f parsley You may try adding spinach other times. Place your vegetables in a steaming bask et and cover the bottom of the pot with enough water so that it does not boil dry but not enough to cover any of your vegetables. Check them with a fork periodica lly to make sure that they are just tend er. This will usually only take 5-[address] vegetables and the steaming w ater in your binding bench worker and puree. Add any of your favorite fresh or dry herbs to enhance the flavor of the broth if wish. If your system is sensitive: Place the above vegetables in a soup pot with a significant amount of water. Add any of your favorite fresh or dried herbs to enhance the flavor of your soup. Bring this to a boil, then let it simmer for 30 minutes. Drain and keep the broth. Throw away the vegetables because the nu trients will be leached out of them. As your digestive system becomes less se nsitive try the above in small amounts. BEILER?S BROTH Vegetables Needed: 2 medium zucchini 1cup green beans 2 stalks celery chopped parsley clove of garlic Chop 2 medium zucchini, 1 cup of green b eans, 2 stalks of celery into a steamer and steam until very soft (about 15 minutes). [address] veggies, steaming water and a handful of chopped parsley, in a binding bench worker and blend until smooth (about 1-2 minut es). If you like garlic, a clove may be added as you blend for additional flavor. Makes 2-3 bowls. This very nutritious broth is helpful du ring acute illness and as part of the detoxification/cleansing program. Sip hot through the day. ____ 2. Stool test- 3. b12 and folate 4. b-complex 5. MRT- 170 methylation DNA profile Doctors Data- 1. Heavy metal testing, food allerg y, sensitivies, stool test 2. get MRI and brain imaging results 3. Sporebiotic follow instruction on bot tle 4. Diet/symptom log Reminders Provider Appointments None recorded. ? ? Lab None recorded. ? ? Referral None recorded. ? ? Procedures None recorded. ? ? Surgeries None recorded. ? ? Imaging None recorded. ? ? Vitals Weight Blood Pressure 282 lbs 130/80 mm[Hg]
--- OUTSIDE RECORDS SUMMARY | 2020-04-06 11:54 | XMS_ITS | Encounter Summary ---
:1975 External Reference #:[id number] Author Reason for Visit None recorded. Assessment and Plan Assessment Note I spent a total of 40 minutes face to face time with this patient and 35 minutes of that time was spent in counseling and coordination of care with that patient as described in the progress note an d /or: diagnostic results and impression s Risk factor reduction instructions for treatment and follow-up 1. Fatigue 2. Generalized anxiety disorder ? mthfr (methylenetetrahydro folate reductase) mutation, blood/tissue ? anxiety disorder: care ins tructions 3. Allergy to food 4. Neuropathy Discussion Note: None recorded. Plan of Care Patient Instructions get MRT and stool test done waiting on labs- igE? IgM and IgA ia low - DHEA 5mg/day Folate And B12 1tab/day Bcomplex- 1 cap/day CAll jordan make appt after MRT DNA test for $ 425 Doctors DAta can get 1. Bijuan jose broth- BIKOKOR'S BROTH Bieler broth is a wonderful, nurturing a nd calming [...] and the steaming w ater in your air quality manager and puree. Add any of your favorite [...] a handful of chopped parsley, in a air quality manager and blend until smooth (about 1-2 minut [...] MRT- 170 methylation DNA profile Doctors Data- Reminders Provider Appointments None ? ? recorded. Lab Mthfr 03/10/2020 ? (Methylenetetrahydrofol ate Reductase) Mutation, Blood/tissue Referral None ? ? recorded. Procedures None ? ? recorded. Surgeries None ? ? recorded. Imaging None ? ? recorded. Medications Name Start Date ? ? clonazepam 0.5 mg tablet 01/23/2017 Take 1 tablet 4 times a day by oral route. indomethacin 50 mg capsule 01/21/2019 Take 1 capsule 3 times a day by oral route. pantoprazole 40 mg tablet,delayed release 01/21/2019 1 tablet every day by oral route. tramadol 50 mg tablet 01/20/2010 1 tablet every 4-6 hours by oral route. Medications Administered None recorded. Vitals None recorded. Results Lab Results None recorded. Allergies Code Code System Name Reaction Severity Onset Penicillin ? ? ? Problems Name Status Onset Date Source ? [...] lable ? Tonsillectomy Information not avai lable Vaccine List Vaccine Type unknown 02/10/2020 Social History Tobacco Smoking Status Never Smoker Family History Relation Problem Onset Age of Age Notes Mother Disorder of thyroid (No N/A (No Note s) gland Information) Mother Obesity (No N/A (No Notes) Information) Mother Attention deficit (No N/A (No Notes) hyperactivity disorder Information) Mother Arthritis (No N/A (No Notes) Information) Brother Attention deficit (No N/A (No Notes) hyperactivity disorder Information) Sister Attention deficit (No N/A (No Notes) hyperactivity disorder Information) Functional Status Unknown. Past Encounters 02/25/2020 Fatigue; Generalized Anxiety Disorder; A llergy to Food; Neuropathy Tabby Calderón, ND: [address] [place] [address], Ph. [phone] 02/11/2020 Gout; Fatigue; Generalized Anxiety Disor roma; History of Multiple Allergies; Allergy to Food; Neuropathy; Prediabetes Tabby Calderón [place]: [address] [place] [address], Ph. [phone] History of Present Illness Note: he saw his new doctor and she s gonna try him on prozac- <div>he saw a new pcp today- </div><div>
</div><div>he got back some other tests</div><div>DHEA-s was low 38- 140-484 range</div><div>
</div><div>when he took megasporebiotic at bedtime- he woke to go to bathroom- stomach felt swollen- </div><div>red arms and face was red- </div><div>pockets of liquid under eyey sdies of nose- r\facewas very red</div><div>stomach was really swollen and it affected his side they felt swolelen with pressure- </div><div>reports he recorded diet that day but didnt bring woth him</div><div> he says he cannot take any vits in past- </div><div>
&lt ;/div><div>he had squash rice and chicken the thrid day severe pain- </div><div>he took megaspore and was bad stomach and swolen stoamch- </div><div>he didnt have BM after the next day and then little by little and then back to normal- </div><div>1-2 times a day poops regularly- </div><div>but took megaspore and it stopped- </div><div>he hasnt had pain like that since he ate abhay and jerrys- </div><div>
</div><div>diet las tfew days- last [facility] had mc ian- fries, and chicken nuggetts- </div><div>he goes back and forth from [facility] [place]- </div><div>he was still burping up food from [facility] bf the next day- </div><div>
</div><div>feels he two days behind with foods- </div><div>cheese ok</div><div> milk icecream nonono</div><div>
</div> Review of Systems None recorded. Physical Exam ? Notes: redness over arms and face l ight pink generalized rash- not raised no lesions<div>diffuse</div><di v>not itchy</div><div>not on back</div><div>on thighs</div><div>picture of face when pt said he had reaction doesnt look swollen eyelids etc but pt s ays there were</div>
--- OUTSIDE RECORDS SUMMARY | 2020-04-06 11:54 | XMS_ITS | Encounter Summary ---
:1975 External Reference #:[id number] Author Reason for Visit None recorded. Assessment and Plan Assessment Note I spent a total of 60 minutes face to face time with this patient and 35 minutes of that time was spent in counseling and coordination of care with that patient as described in the progress note and /or: recommended diagnostic studies Importance of compliance with treatment plan Risk fact or reduction diagnostic results and impressions 1. Gout pantoprazole ? gout: care instructions 2. Fatigue ? T3, free, serum or plasma ? iron + TIBC + ferritin, se rum ? CMP, serum or plasma ? CBC w/ diff ? vitamin D, 25-hydroxy, tot al, serum ? TSH + free T4, serum ? dhea-sulfate, serum ? thyroid peroxidase (tpo) A b, serum ? thyroglobulin Ab, serum 3. Generalized anxiety disorder ? mthfr (methylenetetrahydro folate reductase) mutation, blood/tissue ? anxiety disorder: care ins tructions 4. History of multiple allergies ? immunoglobulins IgA, IgE, IgG, IgM, quantitative, serum 5. Allergy to food 6. Neuropathy ? neuropathic pain: care ins tructions ? vitamin B12 + folate, seru m or blood ? copper, serum or plasma ? zinc, serum or plasma ? vitamin B6 (pyridoxine), p lasma 7. Prediabetes ? HbA1c (hemoglobin A1c), bl ood ? insulin, serum Discussion Note: None recorded. Plan of Care Patient Instructions 1. Heavy metal testing, food allerg y, sensitivies, stool test 2. get MRI and brain imaging results 3. Sporebiotic follow instruction on bot tle 4. Diet/symptom log Reminders Provider Appointments None recorded. ? ? Lab T3, Free, Serum or ? Plasma 02/11/2020 ? Iron + TIBC + ? Ferritin, Serum 02/11/2020 ? CMP, Serum or ? Plasma 02/11/2020 ? CBC W/ Diff ? 02/11/2020 ? Vitamin D, ? 25-Hydroxy, Total, Serum 02/11/2020 ? TSH + Free T4, ? Serum 02/11/2020 ? Dhea-sulfate, ? Serum 02/11/2020 ? Thyroid Peroxidase ? (Tpo) Ab, Serum 02/11/2020 ? Mthfr ? (Methylenetetrahydrofolate 02/11/2020 Reductase) Mutation, Blood/tissue ? Immunoglobulins ? IgA, IgE, IgG, IgM, 02/11/2020 Quantitative, Serum ? Vitamin B12 + ? Folate, Serum or Blood 02/11/2020 ? Copper, Serum or ? Plasma 02/11/2020 ? Zinc, Serum or ? Plasma 02/11/2020 ? Thyroglobulin Ab, ? Serum 02/11/2020 ? HbA1C (Hemoglobin ? a1C), Blood 02/11/2020 ? Insulin, Serum ? 02/11/2020 ? Vitamin B6 ? (Pyridoxine), Plasma 02/11/2020 Referral None recorded. ? ? Procedures None recorded. ? ? Surgeries None recorded. ? ? Imaging None recorded. ? ? Medications Name Start Date ? ? clonazepam [...] oral route. Medications Administered None recorded. Vitals Weight Blood Pressure 282 lbs 130/80 mm[Hg] Results Lab Results None recorded. Allergies Code [...] disorder Information) Functional Status Unknown. Past Encounters 02/11/2020 Gout; Fatigue; Generalized Anxiety Disor roma; History of Multiple Allergies; Allergy to Food; Neuropathy; Prediabetes Tabby Calderón, ND: [address] , [place] [address], Ph. 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</div><div>he would pull muscles really easy as a kid</div><div>on floor for 3 weeks couldnt move- went home-pain meds rx- </div><div>colodypin, and tramadol- </div><div>3 yrs ago- rx both arms went numb-couldnt move</div><div>went To ER almost fell out to get into car- right side of chest presure felt like he was gonna - body trembling- ever since right side- </div><div>feet were frozen cold- felt frozen bp 190/100/</div><div>right side feels like its gonna explode- it calmed down after 1.5 hours- </div><div>he started crying and that was unusal- then ekg, brain scan chest scan and nothing else- </div><div>pain was so bad he could have and then rx percoset- 25 mg didnt touch it- </div><div>then went to Neurologist- stiff man syndrome and he tried clonazepan- then 40 % better- only thing that helps</div><div>if he doesnt take after 5 hours whole body will start hurting</div><div&g t;
</div><div>back will lock up and cant even bend over for days</div><div>
</div><div>used to [employer] [place] yrs for work but never had known tick- </div><div>
</div><div>gi system- </div><div>2 xday once in am and agai later- larger- type 4 lately 3 sometimes its 5</div><div>difficulty swallowing- last 2 yrs- rice orchips gag on food- </div><div>cereal</div><div>dive rticulitis- 2-3 times</div><div>food allergies- younger he could have but now it will create diverticulitis- </div><div>peanuts, lentils, carrot cake with walnuts- pain instomach </div><div>
</div><div>sugar diet:</div><div>rice and chicken and green beans when he doesn the best but craves cookies, ice cream- </div><div>milk causes diarrhea- and cramping- doesnt usually do these</div><div>hard cheese ok</div><div>when he had cookies his somtach- bloats up </div><div>he has reflux 16 hours later</div><div>sometimes will vomit like its totally undigested he had HCL test came back normal- </div><div> lymoh nodes swell when back locks up - and lympho node under arm- and in neck swells up on right side only- </div><div> Light senstivity- </div><div>anxiety- lat 8/9 yrs</div><div>cafe when first opened it- LED lights were making him angry</div><div>
</div><div>no lead or mercury expo that he know of</div><div>
</div><div>ringing in both ears- </div><div>no decrease in hearing alot of tubes in ears as a kids- </div><div>a lot of Abs as k id-</div><div>
</div><div>Murmur</div>&lt ;div>echo- blood flow good a</div><div>
</div><div>back surgery for ruptured disc- went down to get retested bc it was bothering him- but on way his right side head got wierd and right side felt- he also had an emotional episode- brain fog too- </div><div>
</div&g t;<div>swelling above his ankle- red and hot</div><div>then 4 days later his otherleg did it- </div><div>chest pain- better with panteprazole</div><div>if he eats crap it hurts- </div><div>
</div><div>fruit hurts his stomach- he can have some- </div><div>inions and peppers kill his stomach- </div><div>
</div><div>Body always aches and its always something different</div><d iv>
</div><div>:only eats at noght bc of pain- </div><div>coffeeand 1/2 water- 5-6 per day</div><div>sugar- 1.5 tsp- 6xday</div><div>raspberry arixone tea</div><div> quesidilla- libyan fries</div><div>20 oreos</div><div>like heroin addiction</div><div>he will do good for 3/4 days- </div>& lt;div>
</div><div>almost feels blood over flowing and lelectricity going through whole body</div><div>
</div><div>sleep - doesnt sleep well- eats late then stomach pain begins</div><div>
</div> Review of Systems None recorded. Physical Exam ? General Adult Exam Reported By: Patient Constitutional: General Appearance: overweig ht, obese. Level of Distress: NAD. Ambulation: ambulating damian lly Psychiatric: Mental Status: active and al ert, normal mood, normal affect. Orientation: to time, to keyla ce, to person. Memory: recent memory normal, remote memory normal Head: Head: normocephalic Eyes: Lids and Conjunctivae: non-i njected, no discharge, no pallor. Pupils: PERRLA. Corneas: allyn ssly intact. Fundoscopic: grossly normal except where noted, n ormal optic discs, normal vessels, no exudates, no hemorrhages. EO M: EOMI. Lens: clear. Sclerae: non-icteric. Vision: periphe ral vision grossly intact, acuity grossly intact ENMT: Ears: no lesions on external ear, EACs clear, TMs clear, TM mobility normal. Hearing: no hearing loss, Rinne AC>BC. Nose: no lesions on external nose, na res patent, no septal deviation, nasal passages clear, no sinus ten derness, no nasal discharge. Lips, Teeth, and Gums: no mouth or lip ulcers, no bleeding gums, normal dentition. Oropharynx: moist mucous membranes, no erythema, no exudates, tonsils not enlarg ed Neck: Neck: supple, trachea midlin e, no masses, FROM. Lymph Nodes: no cervical LAD, no supraclavic ular LAD, no axillary LAD, no inguinal LAD. Thyroid: no enlargement , non-tender, no nodules Lungs: Respiratory effort: no dyspn ea. Percussion: no dullness, flatness, or hyperresonance. Auscultat ion: breath sounds normal, good air movement, CTA except as note d, no wheezing, no rales/crackles, no rhonchi Cardiovascular: Apical Impulse: not displace d. Heart Auscultation: RRR, normal S1, normal S2, no murmurs, no ru bs, no gallops. Neck vessels: no carotid bruits. Pulses inclu ding femoral / pedal: normal throughout Abdomen: Bowel Sounds: increased. Ins pection and Palpation: distended, RUQ tenderness, rebound tenderne ss, CVA tenderness. Liver: tenderness, hepatomegaly. Spleen: non-te nder, no splenomegaly. Hernia: none palpable Musculoskeletal:: Motor Strength and Tone: nor mal, normal tone. Joints, Bones, and Muscles: normal movement of all extremities, no bony abnormalities, no tenderness. Extremities: no cyanosis, no edema, no varicosities Neurologic: Gait and Station: normal gai t, normal station. Cranial Nerves: grossly intact. Sensation: g rossly intact, monofilament test intact. Reflexes: DTRs 2+ bi laterally throughout. Coordination and Cerebellum: no tremor Skin: Inspection and palpation: no rash, no lesions. Nails: normal
[2020-04-06] MEDS: Normal Saline Flush 10 ML SYR IVP (11:55)
[2020-04-06 12:06] LABS: Abs Immature Grans 0.03 10^3/uL (0.0-0.06); Absolute Basophil Count 0.02 10^3/uL (0.0-0.2); Absolute Eosinophil Count 0.05 10^3/uL (0.0-0.7); Absolute Lymphocyte Count 1.72 10^3/uL (1.2-3.4); Absolute Monocyte Count 0.38 10^3/uL (0.1-0.8); Absolute Neutrophil Count 4.19 10^3/uL (1.2-6.7); Basophils % 0.3; Eosinophils % 0.8; HCT 46.4 % (40.0-50.0); HGB 15.9 g/dL (13.5-17.5); Immature Grans % 0.5; Lymphocytes % 26.9; MCH 28.9 pg (27.0-33.0); MCHC 34.3 % (32.0-36.0); MCV 84.4 fL (80-95); MPV 9.1 fL (8.0-11.0); Monocytes % 5.9; Neutrophils % 65.6; Nucleated RBC 0 %; Platelet Count 241 10^3/uL (130-400); RDW 12.1 % (11.8-14.1); RDW-SD 36.8 fL; WBC 6.39 10^3/uL (4.4-10.8)
[2020-04-06 12:23] LABS: ALT 34 U/L (16-63); AST 16 U/L (15-37); Albumin 4.3 g/dL (3.4-5.0); Alkaline Phosphatase 75 U/L (46-116); Anion Gap 4.6 mmol/L (3-11); BUN 17 mg/dL (7-18); Bilirubin, Total 0.5 mg/dL (0.2-1.0); CO2 31.4 mmol/L (21.0-32.0); CREATININE 1.27 mg/dL (0.70-1.30); Calcium 8.8 mg/dL (8.5-10.1); Chloride 101 mmol/L (98-107); Glucose 176 mg/dL (74-106); Magnesium 1.9 mg/dL (1.8-2.4); Potassium 4.6 mmol/L (3.5-5.1); Sodium 137 mmol/L (136-145); Total Protein 7.6 g/dL (6.4-8.2)
[2020-04-06 12:28] LABS: Troponin I < 0.05 ng/mL (<0.06)
--- NOTE | 2020-04-06 12:31 | DI.CT_ITS ---
EXAM: CT HEAD CERVICAL SPINE WO CLINICAL HISTORY: Right side facial numbness, hx c6, c7 herniated di. TECHNIQUE: Imaging Protocol: Axial computed tomography images with coronal and sagittal reformatted images were created and reviewed COMPARISON: CT HEAD WITHOUT CONTRAST from 08/15/2017 FINDINGS: BRAIN: There are no skull fractures nor fluid in the visualized paranasal sinuses. There is no evidence of intracranial hemorrhage, mass effect, or shift of midline structures. There are no extra-axial fluid collections. The ventricles are not enlarged or shifted and there is no blo od within the ventricular system nor within the basal cisterns. CERVICAL SPINE: There is no evidence of fracture nor listhesis. No significant prevertebral soft tissue swelling. N o facet malalignment evident. No significant osseous lesions evident. IMPRESSION: No acute intracranial findings on this noninfused CT scan of the brain. No evidence of cervical spine fracture, malalignment, nor acute compromise of the cervical spinal can al. Given the history here if clinically indicated follow-up MRI can be performed RADIATION DOSE DELIVERED: 1,765mGy.cm Total DLP DATA REPOSITORY: All CT scans at this facility are submitted to the National Radiology Data Registry (NRDR) Dose Index Registry (DIR) with the [employer] (ACR). RADIATION OPTIMIZATION: All CT scans at this facility use at least one of these dose optimization te chniques: automated exposure control; mA and/or kV adjustment per patient size (includes targeted exa ms where dose is matched to clinical indication); or iterative reconstruction.
[2020-04-06 12:33] LABS: Uric Acid 5.1 mg/dL (3.5-7.2)
--- NOTE | 2020-04-06 13:15 | DI.MRI_ITS ---
EXAM: MR BRAIN WO CLINICAL HISTORY: Right facial numbness TECHNIQUE: Multiplanar multisequence MRI of the brain was performed. COMPARISON: CT CT HEAD CERVICAL SPINE WO from 04/06/2020 FINDINGS: VENTRICLES AND EXTRA AXIAL SPACES: Normal in size and morphology for the patient's age. MIDLINE SHIFT: None. CEREBRAL PARENCHYMA: No focus of restricted diffusion to suggest acute infarct. No space-occupying le gemini identified. HEMORRHAGE: None. BRAINSTEM/CEREBELLUM: Normal. CALVARIUM: Normal. VISUALIZED PARANASAL SINUSES/MASTOIDS:Clear. [place]: Normal flow void. PITUITARY GLAND: Unremarkable. OTHER FINDINGS: None. IMPRESSION: No evidence of an acute infarct. No acute intracranial process. DATA REPOSITORY:
--- NOTE | 2020-04-06 13:15 | DI.MRI_ITS ---
EXAM: MR CERVICAL SPINE WO CLINICAL HISTORY: Hx disc herniation, R/O spinal compression TECHNIQUE: Multiplanar multisequence MRI of the cervical spine was performed without intravenous con trast. COMPARISON: MR MR CERVICAL SPINE WO from 03/10/2020 FINDINGS: CERVICOMEDULLARY JUNCTION: Intact with no evidence of cerebellar tonsillar ectopia. No obvious abnor mality of the odontoid process. No evidence of Chiari 1 malformation. CERVICAL SPINAL CORD: There is no abnormal signal in the cervical spinal cord and no evidence of foca l cord atrophy nor focal cord swelling. OSSEOUS:There are no cervical fractures evident. No significant osseous lesions in the cervical vert ebrae. INDIVIDUAL LEVELS: C2-3: No disc herniation nor central canal stenosis. No foraminal stenosis. No facet arthropathy. C3-4: No disc herniation nor central canal stenosis.No facet arthropathy. No foraminal stenosis. C4-5: No disc herniation nor central canal stenosis.No facet arthropathy. No foraminal stenosis C5-6: No no significant disc herniation or central canal stenosis. No prominent facet arthropathy. No prominent foraminal stenosis. C6-7: The previously described prominent right paracentral disc herniation is again noted, again note d to be causing right lateral recess stenosis and narrowing of the exiting right neural foramen. The re is impingement of the spinal cord and central canal and right neural foramen. This large disc pro trusion distends cephalad almost to the C5-6 level behind the C6 vertebral body. C7-T1: No disc herniation nor central canal stenosis. No facet arthropathy.No foraminal stenosis. IMPRESSION: 1. There is a prominent right paracentral disc herniation again noted at C6-7 level. This causes sig nificant stenosis of the right lateral recess as well as an element of impingement on the spinal cord + canal stenosis + ipsilateral right-sided foraminal stenosis at this level. 2. There does not appear to be significant signal abnormality in the spinal cord. Also no evidence o f focal cord swelling nor cord atrophy. Findings discussed with ER provider. DATA REPOSITORY:
[2020-04-06 13:29] VITALS: BP 135/87; PULSE 60; RESP 16; TEMP 37; O2SAT 98
[2020-04-06 16:52] LABS: Prothrombin Time 10.3 sec (9.3-11.0)
[2020-04-06 17:04] VITALS: BP 138/77; PULSE 63; RESP 16; TEMP 37.1; O2SAT 98
[2020-04-06] MEDS: Ketorolac 30 MG/ML VIAL IVP (18:09)
[2020-04-06] MEDS: Dexamethasone 10 MG/ML VIAL 6 MG IVP (18:10)
[2020-04-06 18:17] VITALS: BP 154/110; PULSE 79; RESP 16; O2SAT 95
[2020-04-06 18:26] VITALS: BP 147/108
--- NOTE | 2020-04-06 18:39 | NUR.NOTE ---
Nursing Note: At [facility] request the provider note, labs, DI reports, EKG were faxed to Neurosurgery. F [phone]. Mikki Lester
== END 2020-04-06 18:25 | disposition home or self-care (01) ==
PROVIDERS: Registered Nurse Emergency; Emergency Provider Physician Assistant; PCP Nurse Practitioner
DX: M50.223 Other cervical disc displacement at C6-C7 level (principal); G54.2 Cervical root disorders, not elsewhere classified; R20.0 Anesthesia of skin; M79.601 Pain in right arm; G89.29 Other chronic pain; I10 Essential (primary) hypertension
CPT/HCPCS: 36415; 80053; 93005; 99284; 70450; 70551; 72125; 72141; 83735; 84484; 84550; 85025; 85610; 93010; J1100; J1885

== ENCOUNTER 2020-05-04 15:54 | Outpatient (REF) | payer MEDICAID, SELFPAY ==
[2020-05-04 13:55] LABS: HCT 42.9 % (40.0-50.0); MCH 28.5 pg (27.0-33.0); MCV 81.6 fL (80-95); Platelet Count 258 10^3/uL (130-400); RBC 5.26 10^6/uL (4.36-5.78); RDW 12.1 % (11.8-14.1); RDW-SD 35.8 fL; WBC 4.58 10^3/uL (4.4-10.8)
[2020-05-04 14:59] LABS: ALT 35 U/L (16-63); AST 15 U/L (15-37); Alkaline Phosphatase 98 U/L (46-116); Anion Gap 7.9 mmol/L (3-11); BUN 14 mg/dL (7-18); Bilirubin, Total 0.4 mg/dL (0.2-1.0); CO2 27.1 mmol/L (21.0-32.0); CREATININE 1.16 mg/dL (0.70-1.30); Calcium 8.6 mg/dL (8.5-10.1); Chloride 100 mmol/L (98-107); Glucose 350 mg/dL (74-106); Potassium 4.8 mmol/L (3.5-5.1); Sodium 135 mmol/L (136-145); Total Protein 6.9 g/dL (6.4-8.2)
== END 2020-05-04 16:14 ==
LOC: LBN 15:54
PROVIDERS: PCP Nurse Practitioner; Visit Provider Nurse Practitioner Family
DX: I10 Essential (primary) hypertension (principal); R73.03 Prediabetes; E66.9 Obesity, unspecified
CPT/HCPCS: 80053; 85027

== ENCOUNTER 2020-11-04 21:09 | Outpatient (REF) | payer MEDICAID, SELFPAY ==
[2020-11-04 21:53] LABS: C-Reactive Protein 0.33 mg/dL (0.0-0.3)
== END 2020-11-04 21:10 | disposition home or self-care (01) ==
LOC: LBN 21:09
PROVIDERS: PCP Nurse Practitioner Family; Visit Provider Family Medicine
DX: M25.59 Pain in other specified joint (principal); M54.2 Cervicalgia; M54.12 Radiculopathy, cervical region; M54.89 Other dorsalgia
CPT/HCPCS: 86140

== ENCOUNTER 2020-11-08 10:53 | Outpatient (CLI) | payer MEDICAID, SELFPAY ==
[2020-11-08 12:42] LABS: ESR 2 mm/hr (0-15)
== END 2020-11-08 10:54 | disposition home or self-care (01) ==
LOC: LOS 10:55
PROVIDERS: Family Medicine; PCP Nurse Practitioner Family
DX: M25.59 Pain in other specified joint (principal)
CPT/HCPCS: 36415; 85652

== ENCOUNTER 2021-03-18 15:08 | Emergency (ER) | payer MEDICAID, SELFPAY ==
[2021-03-18] VITALS (34 sets, daily range): BP systolic 125–173; BP diastolic 82–114; PULSE 57–75; RESP 8–26; TEMP 36.6–36.8; O2SAT 88–99
--- NOTE | 2021-03-18 15:30 | RT.EKG_ITS ---
APPROVED REPORT Exam: Resting ECG Reason for Exam: chest pain Patient Location: E HR:62 bpm ECG Measurements Heart Rate 62 AXIS AK 153 P 47 QRSd 92 QRS -12 QT 403 T 30 QTc 410 Conclusion Sinus rhythm...normal P axis, V-rate 60- 99
--- NOTE | 2021-03-18 15:45 | DI.RAD_ITS ---
Exam(s) XR CHEST 2V PA LATERAL EXAM: XR CHEST 2V PA LATERAL CLINICAL HISTORY: Palpitations. TECHNIQUE: 2D digital imaging was performed. COMPARISON: CR CHEST 2 VIEWS PA,LAT from 08/15/2017 CR CHEST 2 VIEWS PA,LAT from 08/15/2017 CR XR CHEST 2V PA LATERAL from 05/18/2019 FINDINGS: Heart size is normal. The mediastinum is not widened. Lungs are clear. No infiltrates nor pleural effusions. Small 3 millimeter granuloma in the right lung base. IMPRESSION: No acute pulmonary findings. DATA REPOSITORY: RADIATION DOSE DELIVERED:
--- NOTE | 2021-03-18 15:50 | W.ED.GENAD ---
Discharge Plan Disposition Patient Disposition: HOME Condition: Stable Discharge Details Clinical Impression: Abdominal pain Primary Care Provider: Jim Taylor ED Provider: Allyssa Peterson Home Meds and New Rx's Prescriptions: Continued methylprednisolone [Medrol (Carl)] 4 mg tablets,dose pack See Rx Instructions .ROUTE .COMPLEX Qty: 21 RF: 0 ibuprofen 400 mg tablet 400 mg PO TID PRN (Reason: pain) Qty: 90 RF: 3 Hold Instructions: Home Medication placed on hold at Doctor's office allopurinol 100 mg tablet 100 mg PO DAILY Qty: 90 RF: 3 pantoprazole 40 mg tablet,delayed release (DR/EC) 40 mg PO QHS Qty: 60 RF: 3 tramadol 50 mg tablet 50 mg PO QID PRN (Reason: pain) Qty: 120 RF: 3 oxycodone-acetaminophen [Percocet] 5-325 mg tablet 1 tab PO Q6H MDD 4 tablets PRN (Reason: pain) Qty: 100 RF: 0 clonazepam 0.5 mg tablet 0.5 mg PO BID Qty: 60 RF: 3 indomethacin 50 mg capsule 50 mg PO TID Qty: 90 RF: 2 Hold Instructions: Home Medication placed on hold at Doctor's office Discharge Instructions Instructions: Abdominal Pain (ED) Additional Instructions: Stay away from fatty state Ultrasound will contact you to schedule an appointment for your ultrasound Please follow-up with your primary care physician on Saturday Take your pain medication as prescribed Return earlier should you have new or worsening complaints Blood pressure rechecked by your primary care physician Referrals: Jim Taylor, LOG SNAKER [Primary Care Provider] - Discharge Data Discharge Date/Time-TO BE ENTERED AT DEPARTURE: 03/18/21 19:09 Medical Decision Making <AKILAH Gillette - Last Filed: 03/19/21 08:23> 45-year-old gentleman with chronic neck pain, diabetes, hypertension, GERD, presents with acute on chronic neck-back pain, epigastric and right upper quadrant discomfort, nausea, feeling bloated, simply not feeling well. He has not taken any [id number] medications. He presents with hypertension. Plan is to obtain IV access, give a GI cocktail, and initiate a cardiac work-up, TSH, D-dimer, low suspicion for ACS or dissection. If dimer is elevated then I would pursue CTA. No Nash sign. At time of signout we are in the process of obtaining IV access and laboratory values. No clinical data back thus far. Medical Records Medical records reviewed: Yes I reviewed the patient's medical records. <AKILAH Mitchell - Last Filed: 03/18/21 22:35> Care accepted in transfer from Osman Mejia PA-C Symptoms have been present for the past week, denies any current chest pain or shortness of breath. Has right upper quadrant tenderness that is reproducible on exam, CT abdomen pelvis does not show acute abnormality Ultrasound is pending, this is ordered for outpatient Patient is feeling symptomatically improved, at this time he is stable for discharge home He given the threshold to return should he have new or worsening complaints His diagnostic labs do not show acute abnormality Medical Records Medical records reviewed: Yes I reviewed the patient's medical records. Lab Data Lab results reviewed: Yes I reviewed the patient's lab results. HPI <AKILAH Gillette - Last Filed: 03/19/21 08:23> General Mode of arrival: ambulatory. Date/Time Provider Initiated Documentation: 03/18/21 15:19. Limitations to Documentation: no limitations. Information obtained by: patient. HPI Narrative: This is a 45-year-old gentleman, past medical history that includes chronic neck pain, diabetes, hypertension, gout, anxiety, ADHD, GERD, obesity, presenting to the ER today with multiple complaints, epigastric burning with nausea since Saturday, heart palpitations but denies chest pain or shortness of breath, acute on chronic neck pain, denies recent illness or injury. Patient states that he should be getting neck surgery but because of his diabetes that are poorly controlled they have held off on any surgeries. He denies headache, visual changes, fever, cough, vomiting, dysuria, hematuria, diarrhea. Patient is reporting that he is simply not feeling well. He is vaccinated fully against Covid. History of appendectomy. He states nothing makes his pain worse or better Related Data Home Medications Medication Instructions Recorded Confirmed ibuprofen 400 mg tablet 400 mg PO TID PRN #90 tab 01/21/20 03/18/21 allopurinol 100 mg tablet 100 mg PO DAILY #90 tab 05/30/20 03/18/21 pantoprazole 40 mg tablet,delayed 40 mg PO QHS #60 tab 12/12/20 03/18/21 release tramadol 50 mg tablet 50 mg PO QID PRN #120 tab 01/12/21 03/18/21 methylprednisolone 4 mg tablets in See Rx Instructions .ROUTE 03/03/21 03/18/21 a dose pack .COMPLEX #21 dose pk clonazepam 0.5 mg tablet 0.5 mg PO BID #60 tab 03/13/21 03/18/21 indomethacin 50 mg capsule 50 mg PO TID #90 cap 03/13/21 03/18/21 oxycodone-acetaminophen 5 mg-325 1 tab PO Q6H PRN #100 tab MDD 4 03/13/21 03/18/21 mg tablet tablets Previous Rx's Medication Instructions Recorded ibuprofen 400 mg tablet 400 mg PO TID PRN #90 tab 01/21/20 allopurinol 100 mg tablet 100 mg PO DAILY #90 tab 05/30/20 pantoprazole 40 mg tablet,delayed 40 mg PO QHS #60 tab 12/12/20 release tramadol 50 mg tablet 50 mg PO QID PRN #120 tab 01/12/21 methylprednisolone 4 mg tablets in See Rx Instructions .ROUTE 03/03/21 a dose pack .COMPLEX #21 dose pk clonazepam 0.5 mg tablet 0.5 mg PO BID #60 tab 03/13/21 indomethacin 50 mg capsule 50 mg PO TID #90 cap 03/13/21 oxycodone-acetaminophen 5 mg-325 1 tab PO Q6H PRN #100 tab MDD 4 03/13/21 mg tablet tablets Allergies Allergy/AdvReac Type Severity Reaction Status Date / Time Penicillins Allergy Intermediate Hives Verified 03/18/21 15:20 duloxetine AdvReac Severe Headache, Verified 03/18/21 15:20 muscle spasm pregabalin [From Lyrica] AdvReac Severe severe flu Verified 03/18/21 15:20 like symptoms gabapentin AdvReac Intermediate stomach, Verified 03/18/21 15:20 body aches lisinopril AdvReac Intermediate Burning Verified 03/18/21 15:20 hands and feet. Malaise General Stated Complaint: Abd Prob BRETT: 3 Review of Systems <AKILAH Gillette - Last Filed: 03/19/21 08:23> Constitutional Constitutional: Denies fatigue, Denies fever(s), Reports headache(s) and Denies weakness Eyes Eyes: Denies change in vision ENT Ears, Nose, Mouth, and Throat: Reports headache(s) and Reports neck pain Cardiovascular Cardiovascular: Denies chest pain, Denies dyspnea and Reports other (Palpitations) Respiratory Respiratory: Denies cough and Denies dyspnea Gastrointestinal Gastrointestinal: Reports abdominal pain, Reports bloating, Denies constipation, Denies diarrhea, Reports nausea and Denies vomiting Genitourinary Genitourinary: Denies dysuria Musculoskeletal Musculoskeletal: Reports back pain, Reports neck pain, Denies numbness, Denies stiffness and Reports tingling Integumentary/Breasts Skin/Breast: Denies rash Neurologic Neurologic: Reports headache(s), Denies numbness, Reports tingling and Denies weakness Psychiatric Psychiatric: Reports anxiety Endocrine Endocrine: Denies fatigue Hematologic/Lymphatic Hematologic/Lymphatic: Denies easy bleeding and Denies easy bruising [facility] <AKILAH Gillette - Last Filed: 03/19/21 08:23> Active Problem List Chronic pain (Chronic) Allergies (Acute) Diabetes mellitus type 1.5 (Acute) Arthralgia (Acute) Depression (Chronic) Cervical herniated disc (Acute) Diabetes (Chronic) Radiculopathy affecting upper extremity (Acute) Right shoulder pain (Acute) Gout (Chronic) Right lumbar radiculopathy (Acute) Paresthesia (Chronic) Prediabetes (Chronic) Obesity (BMI 30-39.9) (Chronic 11/15/17) Idiopathic scoliosis (Chronic) Essential hypertension (Chronic 02/16/15) Esophageal reflux (Chronic) Chronic back pain (Chronic 10/07/13) Carpal tunnel syndrome of right wrist (Chronic 10/31/17) Attention deficit hyperactivity disorder (ADHD), 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 Menendez Myringotomy w/ PE (pressure equalizing) tubes age 5 Tonsillectomy Family History Mother , 50's Depression Diabetes Father No problems noted. Sister No problems noted. Sister No problems noted. Brother Depression Substance abuse Maternal Grandfather Diabetes Maternal Grandmother , 50's No problems noted. Social History Smoking/Tobacco Use Status: Never Second Hand Exposure: Yes Smoking risk assessment performed?: Yes Alcohol Intake: never Drug use: Never Substance use type: does not use Household members: spouse Communication Needs: None current occupation: Owns [employer] in [place] Pets and animals: Yes Pets and animals: cat(s) and dog(s) Sexually active: Yes What is your relationship status?: living with partner How often do you talk on the phone with friends or family?: never Do you belong to any clubs or organized social groups?: no Panel score (0-1 are the most socially isolated patients): 1 Do you feel safe at home: Yes Do you feel safe in your relationship?: Yes Exam <AKILAH Gillette - Last Filed: 03/19/21 08:23> Const General: cooperative, healthy appearing, comfortable and no acute distress Orientation: alert, awake and oriented x3 HENMT Head: normal to inspection, normocephalic and atraumatic Mouth: moist mucous membranes Eyes General: appearance normal, both eyes and all related structures Conjunctivae: conjunctivae normal Neck Neck: normal visual inspection, full ROM, no meningeal signs, trachea midline, supple and tender (Diffuse right-sided) Chest Chest: normal inspection of the chest Resp Effort & Inspection: normal respiratory effort and able to speak in complete sentences Auscultation: clear to auscultation bilaterally Cardio Rate: regular rate Rhythm: regular rhythm GI Inspection: normal to inspection Palpation: soft, not firm, no guarding, no pulsatile masses and tender (Mild epigastric and right upper quad) Nash's sign negative and with no rebound tenderness Auscultation: normal bowel sounds Back/Spine/Pelvis Back: no CVA tenderness and No back tenderness Skin General skin exam: no rashes or lesions noted Neuro General: patient alert, patient awake, patient oriented x3, moves all extremities and no focal motor deficits Cognition: normal cognition Speech: speech normal Gait: normal gait Motor: muscle tone normal throughout Sensory Exam: no sensory deficits noted Extrem General: normal to inspection, full ROM, capillary refill normal, no pedal edema and no calf tenderness Psych Appearance: grossly normal Mental Status: mental status grossly normal Course <AKILAH Gillette - Last Filed: 03/19/21 08:23> Vital Signs Vital signs: Vital Signs Temperature 36.6 C 03/18/21 15:15 Pulse 70 03/18/21 15:15 Respiratory Rate 18 03/18/21 15:15 Blood Pressure 173/108 H 03/18/21 15:15 Pulse Oximetry 99 03/18/21 15:15 Temperature 36.6 C 03/18/21 15:15 Temperature Source Temporal Artery Scan 03/18/21 15:15 Pulse 70 03/18/21 15:46 Pulse 71 03/18/21 15:46 Respiratory Rate 15 03/18/21 15:46 Blood Pressure 173/112 H 03/18/21 15:46 Blood Pressure Mean 127 03/18/21 15:46 Blood Pressure Position Sitting 03/18/21 15:15 Pulse Oximetry 98 03/18/21 15:46 Oxygen Delivery Method Room Air 03/18/21 15:15 Oxygen Flow Rate 0 03/18/21 15:15 Pain Level 7 03/18/21 15:15 Sign Out <AKILAH Gillette - Last Filed: 03/19/21 08:23> Sign Out Data: Sign Out Comment: Acute on chronic back and neck pain. Reports epigastric pain, bloating, cardiac palpitations. Initiating both a abdominal and cardiac work-up. Giving a single GI cocktail Last updated by Osman Mejia PA at 03/18/21 16:15
[2021-03-18 16:04] LABS: Abs Immature Grans 0.03 10^3/uL (0.0-0.06); Absolute Basophil Count 0.05 10^3/uL (0.0-0.2); Absolute Eosinophil Count 0.07 10^3/uL (0.0-0.7); Absolute Lymphocyte Count 2.13 10^3/uL (1.2-3.4); Absolute Monocyte Count 0.42 10^3/uL (0.1-0.8); Absolute Neutrophil Count 4.55 10^3/uL (1.2-6.7); Basophils % 0.7; HCT 48.2 % (40.0-50.0); HGB 16.8 g/dL (13.5-17.5); Immature Grans % 0.4; Lymphocytes % 29.4; MCH 29.2 pg (27.0-33.0); MCHC 34.9 % (32.0-36.0); MCV 83.8 fL (80-95); MPV 9.1 fL (8.0-11.0); Monocytes % 5.8; Neutrophils % 62.7; Nucleated RBC 0 %; Platelet Count 226 10^3/uL (130-400); RBC 5.75 10^6/uL (4.36-5.78); RDW 11.7 % (11.8-14.1); RDW-SD 35.5 fL; WBC 7.25 10^3/uL (4.4-10.8)
[2021-03-18 16:13] LABS: INR 1.1 (0.9-1.1); PTT Activated 22.6 sec (21.0-27.5); Prothrombin Time 10.7 sec (9.3-11.0)
[2021-03-18 16:29] LABS: ALT 40 U/L (16-63); AST 14 U/L (15-37); Albumin 4.5 g/dL (3.4-5.0); Alkaline Phosphatase 99 U/L (46-116); Anion Gap 5.9 mmol/L (3-11); BUN 17 mg/dL (7-18); Bilirubin, Total 0.6 mg/dL (0.2-1.0); CO2 30.1 mmol/L (21.0-32.0); CREATININE 1.1 mg/dL (0.70-1.30); Calcium 9.4 mg/dL (8.5-10.1); Chloride 98 mmol/L (98-107); Glucose 316 mg/dL (74-106); Magnesium 1.9 mg/dL (1.8-2.4); Sodium 134 mmol/L (136-145); TSH (W/Ref FT4) 2.03 uIU/mL (0.36-3.74); Total Protein 7.6 g/dL (6.4-8.2)
--- NOTE | 2021-03-18 16:29 | DI.VRAD_ITS ---
PROCEDURE INFORMATION: Exam: XR Chest Exam date and time: 03/18/2021 3:50 PM Age: 45 years old Clinical indication: Other: Palpitations TECHNIQUE: Imaging protocol: XR of the chest. Views: 2 views. COMPARISON: CR XR CHEST 2V PA LATERAL 05/18/2019 12:54 PM FINDINGS: Lungs: Unremarkable. No consolidation. Pleural spaces: Unremarkable. No pleural effusion. No pneumothorax. Heart/Mediastinum: Unremarkable. No cardiomegaly. Bones/joints: Unremarkable. IMPRESSION: No acute findings. Dictated and Authenticated by: Tejas Plunkett MD. Ordering:ALONSO Brewer MD
[2021-03-18 16:33] LABS: D-Dimer 146 ng/mlFEU (<500)
[2021-03-18 16:36] LABS: Troponin I < 0.05 ng/mL (<0.06)
--- NOTE | 2021-03-18 17:00 | DI.CT_ITS ---
Exam(s) CT ABDOMEN PELVIS W EXAM: CT ABDOMEN PELVIS W CLINICAL HISTORY: ruq pain. TECHNIQUE: Imaging Protocol: Axial computed tomography images with coronal and sagittal reformatted images were created and reviewed CONTRAST MATERIAL: Intravenous: Omnipaque 100cc Oral: None COMPARISON: CT CT ABDOMEN PELVIS W from 04/17/2019 FINDINGS: VISUALIZED LUNG BASES: No nodules nor pleural effusions evident. ABDOMEN: There is no ascites. LIVER: Mild-moderate a Paddock steatosis. No discrete focal hepatic lesion. No dilatation of intrah epatic ducts. GALLBLADDER/BILIARY: No obvious gallbladder pathology. CBD is not dilated. PANCREAS: No evidence of pancreatic mass nor dilatation of the pancreatic duct. SPLEEN: Spleen size is slightly prominent, but unchanged. Calcified splenic granulomas are again not ed. Splenic and portal veins are patent. ADRENALS: There are no significant adrenal masses. KIDNEYS:There is a benign cyst in the lateral cortex of the left kidney again noted which measures 1. 6 x 1.2 cm. No solid renal masses, calculi, or hydronephrosis. No hydroureter. No obvious abnormal ity in the urinary bladder. No solid renal masses. No calculi nor hydronephrosis.. ABDOMINAL AORTA: Abdominal aorta is not enlarged. LYMPH NODES:There is no retroperitoneal nor paraaortic adenopathy. ABDOMINAL WALL: No evidence of significant anterior abdominal wall nor inguinal hernia. GI: There is no evidence of bowel obstruction, free air, nor abscess. PELVIS: GI: Appendix is surgically absent.Sigmoid diverticuli but no evidence of acute diverticulitis at this time. LYMPH NODES: There is no intrapelvic nor inguinal adenopathy. REPRODUCTIVE: Prostate gland is not enlarged. Seminal vesicles unremarkable. URINARY BLADDER: No calculi nor obvious masses evident OSSEOUS: No significant osseous lesions. IMPRESSION: 1. No acute findings in the abdomen and pelvis. 2. Sigmoid diverticulosis. No obvious acute diverticulitis, as was evident in 2019. 3. Appendix is surgically absent. 4. Hepatic steatosis. Spleen size is again noted be minimally prominent, unchanged. Few splenic nancy cified granulomas are again noted There is no ascites. RADIATION DOSE DELIVERED: 1,471.59mGy.cm Total DLP DATA REPOSITORY: All CT scans at this facility are submitted to the National Radiology Data Registry (NRDR) Dose Index Registry (DIR) with the [employer] (ACR). RADIATION OPTIMIZATION: All CT scans at this facility use at least one of these dose optimization te chniques: automated exposure control; mA and/or kV adjustment per patient size (includes targeted exa ms where dose is matched to clinical indication); or iterative reconstruction.
[2021-03-18] MEDS: Omnipaque 350 MG/ML 100 ML BTL IJ (17:35)
[2021-03-18] MEDS: Normal Saline Flush 10 ML SYR IVP (17:38)
--- NOTE | 2021-03-18 18:23 | DI.VRAD_ITS ---
Addendum created by Ronn Bobo MD on 03/19/2021 12:50:48 AM EST: The incidental spinal stenosis at L4/5 is severe in nature. There is a large disc osteophyte complex measuring up to 9 mm with leftward eccentric spinal stenosis. The left lateral recess of the canal is effaced. There is also a severe left foraminal stenosis at this level. This could be causing radiculopathy to left L4 and L5 distribution. Initial report created on 03/18/2021 6:23:07 PM EST: PROCEDURE INFORMATION: Exam: CT Abdomen And Pelvis With Contrast Exam date and time: 03/18/2021 5:09 PM Age: 45 years old Clinical indication: Abdominal pain; Other: Ruq; Prior surgery; Surgery date: 6+ months; Surgery type: Appendectomy TECHNIQUE: Imaging protocol: Computed tomography of the abdomen and pelvis with contrast. Contrast material: OMNIPAQUE 350; Contrast volume: 100 ml; Contrast route: INTRAVENOUS (IV); COMPARISON: CT ABDOMEN PELVIS W 04/17/2019 6:04 PM FINDINGS: Lungs: Lung bases are clear. Pleural spaces: No pleural effusion. Heart: Normal heart size. No pericardial effusion. Liver: Diffuse moderate fatty liver change. No focal hepatic pathology. Gallbladder and bile ducts: The gallbladder is normal in size and shape. No stones or inflammatory changes. Pancreas: The pancreas is normal in contour and attenuation. Spleen: Splenic granulomatous calcification. Spleen is upper limits of normal in length at 13 cm. Adrenal glands: The adrenal glands are normal in size and contour bilaterally. Kidneys and ureters: Left renal posterior benign-appearing cyst measuring 19 mm. No further imaging follow-up is recommended based on MIPS criteria. No hydronephrosis. No renal inflammation. No renal calculi. Stomach and bowel: Gastric morphology is unremarkable. No edema. No gastric outlet obstruction.Small bowel loops are normal in course and caliber. There is no mucosal edema or bowel wall thickening. No obstructive features. Large bowel with diverticulosis. There is no acute diverticulitis. There is no acute or focal large bowel inflammation. No large bowel edema. Formed feces. Appendix: Previous appendectomy. Intraperitoneal space: Unremarkable. No free air. No significant fluid collection. Vasculature: Unremarkable. No abdominal aortic aneurysm. Lymph nodes: Unremarkable. No enlarged lymph nodes. Urinary bladder: Unremarkable as visualized. Reproductive: Unremarkable as visualized. Bones/joints: Degenerative lumbar spine facet disease. Broad-based posterior disc bulge measuring 8 mm at L4-L5 with moderate spinal stenosis at this level. There is mild spinal stenosis at L3-L4. Soft tissues: Abdominal wall soft tissues are unremarkable. IMPRESSION: 1. No acute findings of the abdomen or pelvis. 2. Colonic diverticulosis without acute diverticulitis. 3. No acute biliary tract disease. 4. Previous appendectomy. 5. Fatty liver change. 6. Splenic granulomatous calcium. Spleen is upper limits of normal in size. Dictated and Authenticated by: Ronn Bobo MD. Ordering:KALEB Spivey MD
[2021-03-18 18:35] LABS: Lipase 164 U/L (73-393)
--- NOTE | 2021-03-18 18:44 | NUR.NOTE ---
Nursing Note: Outpatient DI form for abd US limited for RUQ abd pain, to be done ALEXANDREA and follow up with PCP.Mikki Lester
== END 2021-03-18 19:09 | disposition home or self-care (01) ==
PROVIDERS: Physician Assistant; Emergency Provider Physician Assistant; PCP Nurse Practitioner Family
DX: R10.11 Right upper quadrant pain (principal); R10.13 Epigastric pain; R00.2 Palpitations; M54.2 Cervicalgia; E11.65 Type 2 diabetes mellitus with hyperglycemia
CPT/HCPCS: 36415; 80048; 80053; 82805; 83690; 93005; 99285; 71046; 74177; 83735; 84443; 84484; 85025; 85379; 85610; 85730; 93010; J3490

== ENCOUNTER 2021-03-26 18:01 | Emergency (ER) | payer MEDICAID, SELFPAY ==
[2021-03-26 18:04] VITALS: BP 164/107; RESP 12; TEMP 37
--- NOTE | 2021-03-26 18:15 | DI.CT_ITS ---
Exam(s) CT THORACIC LUMBAR SPINE WO EXAM: CT THORACIC LUMBAR SPINE WO CLINICAL HISTORY: Back Pain, Hx of bulging disc. TECHNIQUE: Imaging Protocol: Axial computed tomography images with coronal and sagittal reformatted images were created and reviewed. CONTRAST MATERIAL: NONE COMPARISON: No exams were available for comparison FINDINGS: THORACIC SPINAL COLUMN: There is no evidence of fracture or listhesis. No significant scoliosis. No osseous lesions. There are prominent anterior osteophytes at T9-10. Smaller osteophytes at other l evels. No obvious acute central canal compromise. No narrowing of the exiting neural foramina on ei ther side. No jumped facets . LUMBOSACRAL SPINAL COLUMN: No fracture or listhesis. No disc space narrowing. There is asymmetric l eft-sided annular bulging and disc herniation at at L4-5 level. This disc herniation occupies the le ft lateral recess and impresses the left side of the thecal sac. There is mild narrowing of the exit ing neural foramen left side this level. No prominent facet arthropathy at this level. L5-S1 level exhibits normal disc height. No disc herniation at this level. No central canal stenosi s. No prominent foraminal stenosis. IMPRESSION: There are no fractures in the thoracic and lumbar spines. There is a posterolateral left disc herniation at L4-5 level, as described above. Recommend follow-u p MRI. RADIATION DOSE DELIVERED: 2,413.66mGy.cm Total DLP DATA REPOSITORY: All CT scans at this facility are submitted to the National Radiology Data Registry (NRDR) Dose Index Registry (DIR) with the [employer] (ACR). RADIATION OPTIMIZATION: All CT scans at this facility use at least one of these dose optimization te chniques: automated exposure control; mA and/or kV adjustment per patient size (includes targeted exa ms where dose is matched to clinical indication); or iterative reconstruction.
--- NOTE | 2021-03-26 18:15 | DI.CT_ITS ---
Exam(s) CT CERVICAL SPINE WO EXAM: CT CERVICAL SPINE WO CLINICAL HISTORY: Neck pain, Hx of Bulging disc. TECHNIQUE: Imaging Protocol: Axial computed tomography images with coronal and sagittal reformatted images were created and reviewed COMPARISON: CT CT HEAD CERVICAL SPINE WO from 04/06/2020 FINDINGS: CERVICAL SPINE: This study is incomplete as it does not include the entire C7 vertebral body. Also d oes not include C7-T1 disc space nor T1 vertebral body. There is no evidence of fracture nor listhesis. No significant prevertebral soft tissue swelling. There is chronic-type narrowing of C6-7 disc space with anterior osteophytes and posterior bony ridgi ng.. Mild canal stenosis at this level. There is no significant facet joint malalignment. No significant osseous lesions evident. IMPRESSION: No evidence of cervical spine fracture, malalignment, nor acute compromise of the cervical spinal can al. Chronic disc space narrowing C6-7 level. Please note the entire C7 vertebral body is not included in the field of view of this study. RADIATION DOSE DELIVERED: 529.1mGy.cm Total DLP DATA REPOSITORY: All CT scans at this facility are submitted to the National Radiology Data Registry (NRDR) Dose Index Registry (DIR) with the [employer] (ACR). RADIATION OPTIMIZATION: All CT scans at this facility use at least one of these dose optimization te chniques: automated exposure control; mA and/or kV adjustment per patient size (includes targeted exa ms where dose is matched to clinical indication); or iterative reconstruction.
--- NOTE | 2021-03-26 18:32 | ED.GENADUL_ITS ---
Discharge Plan Disposition Patient Disposition: HOME Condition: Stable Discharge Details Clinical Impression: Cervical herniated disc, Back pain Primary Care Provider: Jim Taylor ED Provider: Umm Shirley Home Meds and New Rx's Prescriptions: Continued ibuprofen 400 mg tablet 400 mg PO TID PRN (Reason: pain) Qty: 90 RF: 3 Hold Instructions: Home Medication placed on hold at Doctor's office allopurinol 100 mg tablet 100 mg PO DAILY Qty: 90 RF: 3 tramadol 50 mg tablet 50 mg PO QID PRN (Reason: pain) Qty: 120 RF: 3 oxycodone-acetaminophen [Percocet] 5-325 mg tablet 1 tab PO Q6H MDD 4 tablets PRN (Reason: pain) Qty: 100 RF: 0 clonazepam 0.5 mg tablet 0.5 mg PO BID Qty: 60 RF: 3 indomethacin 50 mg capsule 50 mg PO TID Qty: 90 RF: 2 Hold Instructions: Home Medication placed on hold at Doctor's office No Action methylprednisolone [Medrol (Carl)] 4 mg tablets,dose pack See Rx Instructions .ROUTE .COMPLEX Qty: 21 RF: 0 pantoprazole 40 mg tablet,delayed release (DR/EC) 40 mg PO QHS Qty: 60 RF: 3 Discharge Instructions Instructions: Back Pain (ED) Additional Instructions: CT today shows no new changes from previous. Please continue to take your pain medication as previously prescribed at home. Alternate ice and heat. You may try lidocaine patches which you can get [id number]. Please keep your neurosurgery appointment at [facility] on Saturday as previously scheduled. I did request that the images get pushed to the neurosurgery depa rtment so they can see the CT today. Follow up with primary care provider in 3-5 days. Return to ED sooner if any worsening or concerns. Increase oral fluids. Please take Tylenol or Ibuprofen with food every 4-6 hours as needed for pain and swelling. Stand Alone Forms: Work Release Referrals: Jim Taylor, SCHEDULE CHECKER [Primary Care Provider] - Medical Decision Making 45-year-old male presents to the ER chief complaint of neck and back pain which occurred approximately 2 hours ago after having intercourse. Patient describes pain as burning in his whole body. He does have a history of bulging disks in the C6-C7 area. He does have a history of chronic back pain, diabetes mellitus depression. He normally takes clonazepam, ibuprofen, indomethacin, methylprednisolone, Percocet and tramadol on a regular basis. He denies any loss of bowel or bladder control denies any numbness or weakness in his bilateral upper extremities. 193: Patient refused Tramadol and Valium. Returns from CT c/o Nausea and pain. Zofran and Percocet ordered. 1942: Patient refusing Oxycodone tablet and is requesting IV medication. FINDINGS: Bones/joints: The entirety of the C7 vertebral body was not imaged. C7-T1 articulation not imaged. No acute fracture or listhesis otherwise in the cervical spine. Straightening of the normal cervical lordosis. Discs/Spinal canal/Neural foramina: Large posterior disc osteophyte complex at C6-C7 causes severe central canal and severe bilateral neural foraminal stenosis. There are smaller broad-based disc bulges at more cephalad levels in the cervical spine. Lungs: No consolidation. Soft tissues: No suspicious lesions. IMPRESSION: 1. No cervical spine fracture. 2. Degenerative changes. Thank you for allowing us to participate in the care of your patient. Dictated and Authenticated by: Rina Peña MD CT T and L Spine without Contrast FINDINGS: Vertebrae and discs: No acute fracture or subluxation. Anterior greater than posterior endplate hypertrophic changes in the thoracic spine. Minor multilevel disc space narrowing. There is no chester central canal stenosis appreciated on CT and no significant neural foraminal stenosis appreciated on CT. Soft tissues: No suspicious lesions. IMPRESSION: 1. No acute bony pathology. 2. Minor degenerative changes. FINDINGS: Vertebrae: No acute fracture or subluxation. Discs/Spinal canal/Neural foramina: Disc spaces are relatively well preserved. Broad-based disc bulges most pronounced at L3-L4 and L4-L5. No chester central canal stenosis on CT however there is definite narrowing of the left lateral recess and neural foramen on the left at L4-L5 due to spondylosis and bilateral neural foraminal stenosis at L5-S1 in the setting of facet hypert rophy. Stomach and bowel: Sigmoid diverticulosis. Appendix: Appendectomy. Soft tissues: No suspicious lesions. IMPRESSION: 1. No acute bony pathology. 2. Distal lumbar predominant degenerative changes. Discussed CT results with patient who verbalized understanding. He does express frustration due to the amount of pain that he has any. He does report that he had some relief with the hydromorphone IV. I did discuss follow-up and keeping his appointment on Saturday with the neurosurgeon at [facility]. I did discuss taking his already prescribed pain medication. He does seem unhappy at [facility] however I am not sure what more can be done for the patient there is no significant changes on his CT from his previous MRI and we do not have MRI capabilities at this time. There is no evidence of cauda equina. Patient ambulatory without assistance upon discharge from department. This text was generated using Zonoffation system, please disregard any oddities of phrase or misspellings. HPI General Mode of arrival: ambulatory . Date/Time Provider Initiated Documentation: 03/26/21 18:09 . Limitations to Documentation: no limitations . Information obtained by: patient, RN notes reviewed and old records reviewed . HPI Narrative: 45-year-old male presents to the ER chief complaint of neck and back pain which occurred approximately 2 hours ago after having intercourse. Patient describes pain as burning in his whole body. He does have a history of bulging disks in the C6-C7 area. He does have a history of chronic back pain, diabetes mellitus depression. He normally takes clonazepam, ibuprofen, indomethacin, methylprednisolone, Percocet and tramadol on a regular basis. He denies any loss of bowel or bladder control denies any numbness or weakness in his bilateral upper extremities. Related Data Home Medications Medication Instructions Recorded Confirmed ibuprofen 400 mg tablet 400 mg PO TID PRN #90 tab 01/21/20 03/18/21 allopurinol 100 mg tablet 100 mg PO DAILY #90 tab 05/30/20 03/18/21 pantoprazole 40 mg tablet,delayed 40 mg PO QHS #60 tab 12/12/20 03/18/21 release tramadol 50 mg tablet 50 mg PO QID PRN #120 tab 01/12/21 03/18/21 methylprednisolone 4 mg tablets in See Rx Instructions .ROUTE 03/03/21 03/18/21 a dose pack .COMPLEX #21 dose pk clonazepam 0.5 mg tablet 0.5 mg PO BID #60 tab 03/13/21 03/18/21 indomethacin 50 mg capsule 50 mg PO TID #90 cap 03/13/21 03/18/21 oxycodone-acetaminophen 5 mg-325 1 tab PO Q6H PRN #100 tab MDD 4 03/13/21 03/18/21 mg tablet tablets Previous Rx's Medication Instructions Recorded ibuprofen 400 mg tablet 400 mg PO TID PRN #90 tab 01/21/20 allopurinol 100 mg tablet 100 mg PO DAILY #90 tab 05/30/20 pantoprazole 40 mg tablet,delayed 40 mg PO QHS #60 tab 12/12/20 release tramadol 50 mg tablet 50 mg PO QID PRN #120 tab 01/12/21 methylprednisolone 4 mg tablets in See Rx Instructions .ROUTE 03/03/21 a dose pack .COMPLEX #21 dose pk clonazepam 0.5 mg tablet 0.5 mg PO BID #60 tab 03/13/21 indomethacin 50 mg capsule 50 mg PO TID #90 cap 03/13/21 oxycodone-acetaminophen 5 mg-325 1 tab PO Q6H PRN #100 tab MDD 4 03/13/21 mg tablet tablets Allergies Allergy/AdvReac Type Severity Reaction Status Date / Time Penicillins Allergy Intermediate Hives Verified 03/18/21 15:20 duloxetine AdvReac Severe Headache, Verified 03/18/21 15:20 muscle spasm pregabalin [From Lyrica] AdvReac Severe severe flu Verified 03/18/21 15:20 like symptoms gabapentin AdvReac Intermediate stomach, Verified 03/18/21 15:20 body aches lisinopril AdvReac Intermediate Burning Verified 03/18/21 15:20 hands and feet. Malaise General Stated Complaint: Nk/Back Pain BRETT: 3 Review of Systems All systems reviewed & are unremarkable except as noted in HPI and below ENT Ears, Nose, Mouth, and Throat: Reports neck pain Musculoskeletal Musculoskeletal: Reports as per HPI, Reports back pain, Reports neck pain, Denies numbness, Reports radiating pain into limb and Reports other (Burning) Neurologic Neurologic: Denies numbness [facility] Active Problem List Abdominal pain (Acute) Chronic pain (Chronic) Allergies (Acute) Diabetes mellitus type 1.5 (Acute) Arthralgia (Acute) Depression (Chronic) Cervical herniated disc (Acute) Diabetes (Chronic) Radiculopathy affecting upper extremity (Acute) Right shoulder pain (Acute) Gout (Chronic) Right lumbar radiculopathy (Acute) Paresthesia (Chronic) Prediabetes (Chronic) Obesity (BMI 30-39.9) (Chronic 11/15/17) Idiopathic scoliosis (Chronic) Essential hypertension (Chronic 02/16/15) Esophageal reflux (Chronic) Chronic back pain (Chronic 10/07/13) Carpal tunnel syndrome of right wrist (Chronic 10/31/17) Attention deficit hyperactivity disorder (ADHD), 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 Menendez Myringotomy w/ PE (pressure equalizing) tubes age 5 Tonsillectomy Family History Mother , 50's Depression Diabetes Father No problems noted. Sister No problems noted. Sister No problems noted. Brother Depression Substance abuse Maternal Grandfather Diabetes Maternal Grandmother , 50's No problems noted. Social History Smoking/Tobacco Use Status: Never Second Hand Exposure: Yes Smoking risk assessment performed?: Yes Alcohol Intake: never Drug use: Never Substance use type: does not use Household members: spouse Communication Needs: None current occupation: Owns [employer] in [place] Pets and animals: Yes Pets and animals: cat(s) and dog(s) Sexually active: Yes What is your relationship status?: living with partner How often do you talk on the phone with friends or family?: never Do you belong to any clubs or organized social groups?: no Panel score (0-1 are the most socially isolated patients): 1 Do you feel safe at home: Yes Do you feel safe in your relationship?: Yes Exam Narrative Exam Narrative: Constitutional: Alert and oriented x3. Appears stated age. Normal body habitus. Head: Normocephalic, no trauma. Eyes: Pupils PERRL, Red reflex noted, EOM's intact. Eyelids symmetrical without lesions, discharge, or swelling. ENT: Bilateral TM's WNL, External ear normal to inspection, no mastoid TTP, swelling, or erythema, Nasal turbinates WNL, no nasal discharge. Normal dentition, Posterior pharynx WNL, no exudate. Chest: RRR, Normal S1, S2, distal pulses intact. Resp: Lungs clear to auscultation bilaterally, no wheezes, rales, or rhonchi. Abdomen: Soft, non-distended, Normoactive bowel sounds all 4 quads. Musculoskeletal: Normal gait, 5/5 strength to all four extremities. Skin: No suspicious rashes or lesions. Capillary refill less than 2 sec. Neurologic: Cranial nerves II-XII intact. Alert and oriented x 3. Motor: No deficits noted. Sensory: Intact bilaterally all 4 extremities. Reflexes: DTR's intact bilaterally.. Hematologic/Lymphatic: No ecchymosis, no lymphadenopathy. Course Vital Signs Vital signs: Vital Signs Temperature 37.0 C 03/26/21 18:04 Respiratory Rate 12 03/26/21 18:04 Blood Pressure 164/107 H 03/26/21 18:04 Temperature 37.0 C 03/26/21 18:04 Respiratory Rate 12 03/26/21 18:04 Blood Pressure 164/107 H 03/26/21 18:04 Blood Pressure Position Sitting 03/26/21 18:04 Oxygen Delivery Method Room Air 03/26/21 18:04 Oxygen Flow Rate 0 03/26/21 18:04 Pain Level 10 03/26/21 18:04
[2021-03-26] MEDS: Ketorolac 60 MG/2 ML VIAL IM (18:35)
[2021-03-26] MEDS: Orphenadrine 60 MG/2 ML VIAL IM (18:36)
[2021-03-26] MEDS: Lidocaine 5% Patch 1 PATCH TP (18:36)
[2021-03-26] MEDS: Ondansetron O.D.T. 4 MG TABEF PO (19:39)
--- NOTE | 2021-03-26 20:09 | DI.VRAD_ITS ---
PROCEDURE INFORMATION: Exam: CT Cervical Spine Without Contrast Exam date and time: 03/26/2021 18:27 Age: 45 years old Clinical indication: Patient HX: Neck pain, HX of bulging disc; Additional info: PT states supposed to have surgery on c-spine but delayed due to other health condition TECHNIQUE: Imaging protocol: Computed tomography images of the cervical spine without contrast. Radiation optimization: All CT scans at this facility use at least one of these dose optimization techniques: automated exposure control; mA and/or kV adjustment per patient size (includes targeted exams where dose is matched to clinical indication); or iterative reconstruction. COMPARISON: MR CERVICAL SPINE WO 04/06/2020 13:43 FINDINGS: Bones/joints: The entirety of the C7 vertebral body was not imaged. C7-T1 articulation not imaged. No acute fracture or listhesis otherwise in the cervical spine. Straightening of the normal cervical lordosis. Discs/Spinal canal/Neural foramina: Large posterior disc osteophyte complex at C6-C7 causes severe central canal and severe bilateral neural foraminal stenosis. There are smaller broad-based disc bulges at more cephalad levels in the cervical spine. Lungs: No consolidation. Soft tissues: No suspicious lesions. IMPRESSION: 1. No cervical spine fracture. 2. Degenerative changes. Dictated and Authenticated by: Rina Peña MD. Ordering:RUSSELL Salomon MD
--- NOTE | 2021-03-26 20:11 | DI.VRAD_ITS ---
PROCEDURE INFORMATION: Exam: CT Thoracic Spine Without Contrast Exam date and time: 03/26/2021 19:21 Age: 45 years old Clinical indication: Low back pain; Pain in thoracic spine; Prior surgery; Surgery date: 6+ months; Surgery type: Surgery in 2015; Patient HX: PT states supposed to have surgery on c-spine but delayed due to other health condition TECHNIQUE: Imaging protocol: Computed tomography images of the thoracic spine without contrast. Radiation optimization: All CT scans at this facility use at least one of these dose optimization techniques: automated exposure control; mA and/or kV adjustment per patient size (includes targeted exams where dose is matched to clinical indication); or iterative reconstruction. COMPARISON: MR THORACIC SPINE WO 03/10/2020 10:10 FINDINGS: Vertebrae and discs: No acute fracture or subluxation. Anterior greater than posterior endplate hypertrophic changes in the thoracic spine. Minor multilevel disc space narrowing. There is no chester central canal stenosis appreciated on CT and no significant neural foraminal stenosis appreciated on CT. Soft tissues: No suspicious lesions. IMPRESSION: 1. No acute bony pathology. 2. Minor degenerative changes. PROCEDURE INFORMATION: Exam: CT Lumbar Spine Without Contrast Exam date and time: 03/26/2021 19:21 Age: 45 years old Clinical indication: Low back pain; Pain in thoracic spine; Prior surgery; Surgery date: 6+ months; Surgery type: Surgery in 2015; Patient HX: PT states supposed to have surgery on c-spine but delayed due to other health condition TECHNIQUE: Imaging protocol: Computed tomography images of the lumbar spine without contrast. Radiation optimization: All CT scans at this facility use at least one of these dose optimization techniques: automated exposure control; mA and/or kV adjustment per patient size (includes targeted exams where dose is matched to clinical indication); or iterative reconstruction. COMPARISON: MR THORACIC SPINE WO 03/10/2020 10:10 FINDINGS: Vertebrae: No acute fracture or subluxation. Discs/Spinal canal/Neural foramina: Disc spaces are relatively well preserved. Broad-based disc bulges most pronounced at L3-L4 and L4-L5. No chester central canal stenosis on CT however there is definite narrowing of the left lateral recess and neural foramen on the left at L4-L5 due to spondylosis and bilateral neural foraminal stenosis at L5-S1 in the setting of facet hypertrophy. Stomach and bowel: Sigmoid diverticulosis. Appendix: Appendectomy. Soft tissues: No suspicious lesions. IMPRESSION: 1. No acute bony pathology. 2. Distal lumbar predominant degenerative changes. Dictated and Authenticated by: Rina Peña MD. Ordering:RUSSELL Salomon MD
[2021-03-26] MEDS: HYDROmorphone 2 MG/ML VIAL 1 MG IVP (20:21)
[2021-03-26 20:22] VITALS: BP 131/83; PULSE 60; RESP 18; O2SAT 98
== END 2021-03-26 20:40 | disposition home or self-care (01) ==
PROVIDERS: Emergency Provider Registered Nurse Emergency; PCP Nurse Practitioner Family
DX: M50.223 Other cervical disc displacement at C6-C7 level (principal); M54.50 Low back pain, unspecified; M54.2 Cervicalgia; G89.29 Other chronic pain; R11.0 Nausea
CPT/HCPCS: 96372; 96374; 99284; J2360; 72125; 72128; 72131; J1885

== ENCOUNTER 2021-03-27 00:41 | Outpatient (CLI) | payer MEDICAID, SELFPAY ==
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
== END 2021-03-27 01:01 ==
PROVIDERS: PCP Nurse Practitioner Family; Visit Provider Physician Assistant
DX: R10.11 Right upper quadrant pain (principal); K76.0 Fatty (change of) liver, not elsewhere classified
CPT/HCPCS: 76705

== ENCOUNTER 2021-05-15 01:39 | Outpatient (CLI) | payer MEDICAID, SELFPAY ==
--- NOTE | 2021-05-15 11:07 | DI.RAD_ITS ---
Exam(s) XR CERVICAL SP ESTRADA TRAUMA 2-3V EXAM: XR CERVICAL SP ESTRADA TRAUMA 2-3V CLINICAL HISTORY: HERNIATED NUCLEUS PULPOSUS, C6-7, RT, M50.223, S/P ACDF, INTERVAL IMAGING. TECHNIQUE: 2D digital imaging was performed. COMPARISON: Previous CT scan 03/27/2021 FINDINGS: There is anterior fusion plate at C6-7 secured by screws at both these levels and there is also an in tervertebral disc space divide ower in the disc space at this level appearing to be in satisfactory p osition. No evidence of hardware fracture or migration. Above this level all the disc spaces in the cervical spine exhibit normal height. No listhesis. No facet arthropathy evident. No cervical ribs. IMPRESSION: DATA REPOSITORY: RADIATION DOSE DELIVERED:
== END 2021-05-15 01:59 ==
PROVIDERS: PCP Nurse Practitioner Family
DX: M50.223 Other cervical disc displacement at C6-C7 level (principal); Z98.1 Arthrodesis status
CPT/HCPCS: 72040

== ENCOUNTER 2021-11-07 11:56 | Emergency (ER) | payer MEDICAID, SELFPAY ==
--- NOTE | 2021-11-07 12:00 | RT.EKG_ITS ---
APPROVED REPORT Exam: Resting ECG Reason for Exam: chest pain Patient Location: E HR:66 bpm ECG Measurements Heart Rate 66 AXIS WV 146 P 56 QRSd 85 QRS 28 QT 393 T 40 QTc 412 Conclusion Sinus rhythm...normal P axis, V-rate 60- 99. Sinus. No STEMI. I have reviewed and interpreted ECG and agree with software generated interpretation.
[2021-11-07 12:12] VITALS: BP 151/90; PULSE 64; RESP 16; TEMP 37.2; O2SAT 98
[2021-11-07 13:32] LABS: COVID-19 PCR Negative (Negative); Influenza A PCR Negative (Negative); Influenza B PCR Negative (Negative); RSV PCR Negative (Negative)
--- NOTE | 2021-11-07 13:54 | NUR.NOTE ---
Nursing Note: Patient left at to go sisal picker his father. WIll call with covid result.
[2021-11-07 17:27] LABS: Source Nasopharynx
== END 2021-11-07 13:34 | disposition left before discharge ==
PROVIDERS: Emergency Provider Physician Assistant; PCP Nurse Practitioner Family
DX: Z53.21 Procedure and treatment not carried out due to patient leaving prior to being seen by health care provider (principal)
CPT/HCPCS: 87637; 93005; 93010

== ENCOUNTER 2021-11-16 23:01 | Emergency (ER) | payer MEDICAID, SELFPAY ==
[2021-11-16 23:00] VITALS: BP 158/91; PULSE 78; RESP 18; TEMP 37.1; O2SAT 97
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
--- NOTE | 2021-11-16 23:00 | RT.EKG_ITS ---
APPROVED REPORT Exam: Resting ECG Reason for Exam: trauma Patient Location: E HR:74 bpm ECG Measurements Heart Rate 74 AXIS OH 154 P 55 QRSd 91 QRS -11 QT 393 T 34 QTc 436 Conclusion Sinus rhythm...normal P axis, V-rate 60- 99 Low voltage, precordial leads...precordial leads <1.0mV
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
[2021-11-16 23:29] LABS: Abs Immature Grans 0.02 10^3/uL (0.0-0.06); Absolute Basophil Count 0.04 10^3/uL (0.0-0.2); Absolute Eosinophil Count 0.09 10^3/uL (0.0-0.7); Absolute Lymphocyte Count 1.49 10^3/uL (1.2-3.4); Absolute Monocyte Count 0.51 10^3/uL (0.1-0.8); Absolute Neutrophil Count 5.29 10^3/uL (1.2-6.7); Basophils % 0.5; Eosinophils % 1.2; HCT 41.5 % (40.0-50.0); HGB 14.8 g/dL (13.5-17.5); Immature Grans % 0.3; MCH 29.1 pg (27.0-33.0); MCHC 35.7 % (32.0-36.0); MCV 82 fL (80-95); MPV 9.3 fL (8.0-11.0); Monocytes % 6.9; Neutrophils % 71.1; Platelet Count 250 10^3/uL (130-400); RBC 5.08 10^6/uL (4.36-5.78); RDW 12.2 % (11.8-14.1); RDW-SD 36.2 fL; WBC 7.44 10^3/uL (4.4-10.8)
[2021-11-16] MEDS: MORPHine 4 MG/ML SYR IVP (23:30)
[2021-11-16] MEDS: Omnipaque 350 MG/ML 100 ML BTL IJ (23:35)
[2021-11-16 23:43] LABS: ALT 25 U/L (16-63); Albumin 3.7 g/dL (3.4-5.0); Alkaline Phosphatase 104 U/L (46-116); Anion Gap 6.9 mmol/L (3-11); BUN 14 mg/dL (7-18); Bilirubin, Total 0.5 mg/dL (0.2-1.0); CO2 27.1 mmol/L (21.0-32.0); CREATININE 1.1 mg/dL (0.70-1.30); Calcium 8.3 mg/dL (8.5-10.1); Chloride 101 mmol/L (98-107); Glucose 294 mg/dL (74-106); Magnesium 1.7 mg/dL (1.8-2.4); Potassium 3.8 mmol/L (3.5-5.1); Sodium 135 mmol/L (136-145); Total Protein 6.7 g/dL (6.4-8.2)
[2021-11-16 23:49] LABS: Lipase 149 U/L (73-393); Troponin I < 50 ng/L (<or=60)
[2021-11-17] VITALS (8 sets, daily range): BP systolic 132–169; BP diastolic 87–106; PULSE 64–80; RESP 9–18; TEMP 37.1; O2SAT 92–97
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
[2021-11-17] MEDS: Normal Saline Flush 10 ML SYR IVP (00:12)
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
[2021-11-17 00:41] LABS: AST 14 U/L (15-37)
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
== END 2021-11-17 00:51 | disposition home or self-care (01) ==
PROVIDERS: Emergency Provider Emergency Medicine; PCP Nurse Practitioner Family
DX: S16.1XXA Strain of muscle, fascia and tendon at neck level, initial encounter (principal); S39.012A Strain of muscle, fascia and tendon of lower back, initial encounter; S09.90XA Unspecified injury of head, initial encounter; G89.11 Acute pain due to trauma; R07.9 Chest pain, unspecified; R10.12 Left upper quadrant pain; I10 Essential (primary) hypertension; Z77.22 Contact with and (suspected) exposure to environmental tobacco smoke (acute) (chronic); V50.5XXA Driver of pick-up truck or van injured in collision with pedestrian or animal in traffic accident, initial encounter
CPT/HCPCS: 74177; 80053; 83690; 93005; 96374; 99285; 70450; 71260; 72125; 83735; 84484; 85025; 93010; J2270; J3490

== ENCOUNTER 2022-01-25 12:26 | Outpatient (CLI) | payer MEDICAID, SELFPAY ==
--- NOTE | 2022-01-25 06:00 | DI.RAD_ITS ---
Exam(s) XR PAIN CLINIC LUMBAR SP 2V EXAM: XR PAIN CLINIC LUMBAR SP 2V CLINICAL HISTORY: Dx: Lumbar Spondylosis TECHNIQUE: 2D and realtime digital imaging was performed. COMPARISON: No exams were available for comparison FINDINGS: C-arm fluoroscopy was utilized by Dr. Leslie during reported lumbar medial branch block. Hard copy mary alice w injections bilaterally at what appear to be the L3-4 and L4-5 levels. IMPRESSION: RADIATION DOSE DELIVERED: murray Echevarria=21.6 mGy
[2022-01-25 12:36] VITALS: BP 127/82; PULSE 83; RESP 20; TEMP 36.7; O2SAT 98
--- NOTE | 2022-01-25 13:14 | PDOC.PAIN_ITS ---
Pain Clinic Procedure Note Procedure Note Procedure Note: Lumbar/Sacral Medial Branch Blocks Devon Shields has been referred to the [facility] for lumbar/sacral medial branch blocks. COMMENTS: He was seen by Dr. Olivas at [facility] and this procedure was recommended. He has had RFA in the past. Pre-procedure pain VAS was 7/10. Dx: Lumbosacral spondylosis without myelopathy Patient was interviewed and the medical record reviewed. There were no medical, pharmacologic, radiographic or other structural contraindications to attempting fluoroscopically guided local anesthetic lumbar/sacral medial branch blocks. Risks and expected side effects as well as potential benefit of the procedure were reviewed and voiced concerns addressed. The printed consent form was signed and witnessed. Standard time-out procedure was performed. Patient was placed in the prone position on the fluoroscopy table and automated blood pressure cuff and pulse oximeter applied. The skin entry points for approaching the anatomic target points of the segmental medial branches of bilateral L3-L5 were identified with anfluoroscopy and marked. Following thorough Chlorhexadine preparation of the skin and draping and 1% lidocaine infiltration of the skin entry points and subcutaneous tissues, a 25 gauge 3.5 spinal needle was placed under fluoroscopic guidance down on to the target point for each respective segmental medial branch.Position was confirmed in A/P, oblique and lateral views with 0.25ml of omnipaque 240. At this point I injected 0.5ml of 0.5% Bupivacaine at each segmental sensory nerve. Vital signs were stable throughout the procedure and were as recorded in the docflowsheet by the nursing staff. Follow up plans and appointments were discussed and was instructed to keep careful note of how the usual pain was modified by these injections. Specifically was asked to keep a pain diary for the next 24 hours using a numeric pain scale of 0-10 and report these results at the follow-up visit. Post procedure instruction was given as documented in the nursing documentation and having met discharge criteria. Patient was discharged from the [facility]. Based on the medial branches blocked today, if the patient has adequate relief and we are able to proceed to radiofrequency ablation, the treatment should result in the denervation of the bilateral L4-L5 and L5-S1 FACET JOINTS. We would expect to denervate a total of 4 facets during the radiofrequency ablation. COMMENTS: Post-procedure pain VAS was 2/10 Davi Leslie DO, MPH [facility] Management [facility] CC: Jim Taylor, HYGIENE ASSISTANT
[2022-01-25] MEDS: Bupivacaine 0.5% Pres-Free 10 ML VIAL IJ (13:20)
[2022-01-25] MEDS: Omnipaque 240 MG/ML 50 ML BTL IJ (13:20)
[2022-01-25 13:21] VITALS: BP 141/94; PULSE 84; RESP 15; O2SAT 94
== END 2022-01-25 12:27 | disposition home or self-care (01) ==
LOC: PC 12:26
PROVIDERS: PCP Nurse Practitioner Family; Visit Provider Preventive Medicine Occupational Medicine
DX: M47.817 Spondylosis without myelopathy or radiculopathy, lumbosacral region (principal)
CPT/HCPCS: 64493; 64494; 72100; Q9967

== ENCOUNTER 2022-02-08 09:50 | Outpatient (CLI) | payer MEDICAID, SELFPAY ==
--- NOTE | 2022-02-08 06:00 | DI.RAD_ITS ---
Exam(s) XR PAIN CLINIC LUMBAR SP 2V EXAM: XR PAIN CLINIC LUMBAR SP 2V CLINICAL HISTORY: Dx: Lumbar Spondylosis TECHNIQUE: 2D and realtime digital imaging was performed. COMPARISON: No exams were available for comparison FINDINGS: C-arm fluoroscopy was utilized by Dr. Leslie during reported bilateral lumbar medial branch block. Cash d copies show injections bilaterally at what appear to be the L3-4, L4-5, and L5-S1 levels. IMPRESSION: RADIATION DOSE DELIVERED: murray Echevarria=29.9 mGy Total DLP
[2022-02-08 10:20] VITALS: BP 145/98; PULSE 72; RESP 20; TEMP 36.9; O2SAT 96
--- NOTE | 2022-02-08 10:55 | PDOC.PAIN_ITS ---
Date of service: 02/08/22 Time of Service: 11:03 Pain Clinic Procedure Note Procedure Note Procedure Note: Lumbar/Sacral Medial Branch Blocks #2 Devon Shields has been referred to the [facility] for lumbar/sacral medial branch blocks. COMMENTS: He did very well with the first block. Pre-procedure pain VAS was 6/10. Dx: Lumbosacral spondylosis without myelopathy Patient was interviewed and the medical record reviewed. There were no medical, pharmacologic, radiographic or other structural contraindications to attempting fluoroscopically guided local anesthetic lumbar/sacral medial branch blocks. Risks and expected side effects as well as potential benefit of the procedure were reviewed and voiced concerns addressed. The printed consent form was signed and witnessed. Standard time-out procedure was performed. Patient was placed in the prone position on the fluoroscopy table and automated blood pressure cuff and pulse oximeter applied. The skin entry points for approaching the anatomic target points of the segmental medial branches of bilateral L4-L5 and L5-S1 were identified with anfluoroscopy and marked. Following thorough Chlorhexadine preparation of the skin and draping , a 25 gaug e 3.5 spinal needle was placed under fluoroscopic guidance down on to the target point for each respective segmental medial branch.Position was confirmed in A/P, oblique and lateral views with 0.25ml of omnipaque 240. At this point I injected 0.5cc of 2% Lidocaine at each segmental sensory nerve.. Vital signs were stable throughout the procedure and were as recorded in the docflowsheet by the nursing staff. Follow up plans and appointments were discussed and was instructed to keep careful note of how the usual pain was modified by these injections. Specifically was asked to keep a pain diary for the next 24 hours using a numeric pain scale of 0-10 and report these results at the follow-up visit. Post procedure instruction was given as documented in the nursing documentation and having met discharge criteria. Patient was discharged from the [facility] Management [facility]. Based on the medial branches blocked today, if the patient has adequate relief and we are able to proceed to radiofrequency ablation, the treatment should result in the denervation of the bilateral L4-L5 and L5-S1 FACET JOINTS. We would expect to denervate a total of 4 facets during the radiofrequency ablation. COMMENTS: Post-procedure pain VAS was 1/10. Davi Leslie DO, MPH [facility]-Pain Management [facility] for Pain [facility] CC: Jim Taylor CANDY SPREADER
[2022-02-08 11:03] VITALS: BP 161/100; PULSE 66; RESP 13; O2SAT 96
[2022-02-08] MEDS: Lidocaine 2% Pres-Free 5 ML VIAL IJ (11:10)
[2022-02-08] MEDS: Omnipaque 240 MG/ML 50 ML BTL IJ (11:11)
== END 2022-02-08 09:51 | disposition home or self-care (01) ==
LOC: PC 09:50
PROVIDERS: PCP Nurse Practitioner Family; Visit Provider Preventive Medicine Occupational Medicine
DX: M47.817 Spondylosis without myelopathy or radiculopathy, lumbosacral region (principal)
CPT/HCPCS: 64493; 64494; 72100; Q9967

== ENCOUNTER 2022-02-28 07:52 | Outpatient (CLI) | payer MEDICAID, SELFPAY ==
[2022-02-28 07:57] VITALS: BP 118/75; PULSE 56; RESP 20; TEMP 36.4; O2SAT 100
[2022-02-28] MEDS: fentaNYL 100 MCG/2 ML VIAL IVP ×2 (08:23→08:28)
[2022-02-28] MEDS: Midazolam 2 MG/2 ML VIAL IVP (08:24)
[2022-02-28] MEDS: Lactated Ringers 500 ML 80 ML IV (08:37)
--- NOTE | 2022-02-28 09:02 | DI.RAD_ITS ---
Exam(s) XR PAIN CLINIC LUMBAR SP 2V EXAM: XR PAIN CLINIC LUMBAR SP 2V CLINICAL HISTORY: DX: lumbar spondylosis TECHNIQUE: 2D and realtime digital imaging was performed. CONTRAST MATERIAL: Refer to procedure report. COMPARISON: No exams were available for comparison FINDINGS: Fluoroscopy was provided for Dr. Leslie during the performance of a bilateral lumbar radiofrequency ab lation. Please refer to the procedure report for complete details. Ka,r=35.3 mGy IMPRESSION:
[2022-02-28 09:03] VITALS: BP 150/98; PULSE 71; RESP 16; O2SAT 98
--- NOTE | 2022-02-28 09:06 | PDOC.PAIN ---
Date of service: 02/28/22 Time of Service: 09:06 Pain Clinic Procedure Note Procedure Note Procedure Note: Bilateral Lumbar Radiofrequency with Coolief Machine PROCEDURE NOTE Date of Service: February 28, 2022 Patient: Devon Shields Provider: Davi Leslie DO, MPH Pre Operative Diagnosis: Lumbosacral Spondylosis without Myelopathy Post Operative Diagnosis: Same Pre-procedure pain; VAS= 7/10 Comments: Excellent relief from the LMBBs on 01/25/22 and 02/08/22 PROCEDURE: Radiofrequency Ablation of medial branches - Bilateral L3 L4 L5 and lateral branches of bilateral S1. Devon Shields was brought into the fluoroscopy suite and positioned into the prone position on the fluoroscopy table and allowed to adjust to a position of comfort. A grounding pad was placed on the [right/left] thigh. The lumbar region was widely prepped with a chloraprep solution, allowed to air dry and draped in standard sterile surgical fashion. Local anesthesia was provided by 4 mL of 2% Lidocaine delivered with a 25g needle. A 17g 100 mm radiofrequency introducer needle was placed to the planned anatomic targets guided with intermittent fluoroscopy with a perpendicular approach to terminally place at the junction of the superior articular process and the transverse process of the bilateral L4, L5, the base of the sacral ala on the bilateral for the L5 medial branch nerve and the area between base of the sacral ala to the S1 foramen bilaterally. The stylets were removed and radiofrequency probes with a 4mm active tip were then inserted. Needle tip position of the probes was verified in the AP, oblique, and lateral views. At each site, the medial branch nerve was stimulated at 2 Hz to a maximum 1-2 volts determined to finalize safe needle and electrode placement. The patient was awake and responsive during this portion of the procedure. Each target was anesthetized with 1-2 mL of 2% Lidocaine for anesthesia for lesioning and then each target was lesioned at 80 degrees Celsius for 2 minutes and 30 seconds. Tissue impedences were noted to be between 250 and 500 Ohms. Electrodes and needles were then removed and bandages placed over the needle placement sites, the patient then returned to the supine position on a stretcher and transported to the recovery room without hemodynamic, neurologic, or allergic reactions. Fluoroscopic images were printed for hard copy recording and digitally archived. POST PROCEDURE EVALUATION: IMPRESSION: 1. Summary of procedure. Medication given is documented in the MAR. 2. The patient will be contacted in 1-3 weeks 3. Estimated Blood Loss: <5 mls 4. Fluoroscopy time: Documented in the EMR. Follow up plans and appointments were discussed with the Devon . Post procedure instruction was given as documented in nursing documentation and having met discharge criteria, Devon was discharged from the Pain Management Center. COMMENTS: No apparent complications. Post-procedure pain: VAS= 1/10. F/U with our office as needed. Davi Leslie DO, MPH [facility]-Pain Management [facility]
[2022-02-28] MEDS: Lidocaine 2% Pres-Free 5 ML VIAL IJ (09:11)
[2022-02-28] MEDS: Bupivacaine 0.5% Pres-Free 10 ML VIAL IJ (09:12)
== END 2022-02-28 07:53 | disposition home or self-care (01) ==
LOC: PC 07:52
PROVIDERS: PCP Nurse Practitioner Family; Visit Provider Preventive Medicine Occupational Medicine
DX: M47.817 Spondylosis without myelopathy or radiculopathy, lumbosacral region (principal)
CPT/HCPCS: 64635; 64636; 72100; J2250; J3010

== ENCOUNTER 2022-05-22 03:18 | Outpatient (CLI) | payer MEDICAID, SELFPAY ==
[2022-05-22 14:38] LABS: HCT 46.7 % (40.0-50.0); MCH 28.4 pg (27.0-33.0); MCHC 34.3 % (32.0-36.0); MCV 83 fL (80-95); MPV 8.9 fL (8.0-11.0); Platelet Count 223 10^3/uL (130-400); RBC 5.64 10^6/uL (4.36-5.78); RDW-SD 36.4 fL; WBC 5.13 10^3/uL (4.4-10.8)
[2022-05-22 16:08] LABS: ALT 33 U/L (16-63); AST 21 U/L (15-37); Albumin 4.4 g/dL (3.4-5.0); Alkaline Phosphatase 110 U/L (46-116); Anion Gap 5.5 mmol/L (3-11); BUN 9 mg/dL (7-18); Bilirubin, Total 0.6 mg/dL (0.2-1.0); CO2 30.5 mmol/L (21.0-32.0); CREATININE 1.1 mg/dL (0.70-1.30); Calcium 9.5 mg/dL (8.5-10.1); Chloride 99 mmol/L (98-107); Estimated GFR 83.32 (mL/min/1.73m2); Glucose 375 mg/dL (74-106); Sodium 135 mmol/L (136-145); Total Protein 7.6 g/dL (6.4-8.2)
[2022-05-23 11:35] LABS: Lyme Ab w Rflx to Lyme Confirm Negative (Negative)
[2022-05-24 15:45] LABS: Anaplasma phagocytophilum Negative (Negative); B. miyamotoi PCR Negative (Negative); Babesia divergens/MO-1 Negative (Negative); Babesia duncani Negative (Negative); Babesia microti Negative (Negative); Ehrlichia chaffeensis Negative (Negative); Ehrlichia ewingii/canis Negative (Negative); Ehrlichia muris eauclairensis Negative (Negative)
== END 2022-05-22 03:19 | disposition home or self-care (01) ==
PROVIDERS: PCP Nurse Practitioner Family; Visit Provider Nurse Practitioner Family
DX: I10 Essential (primary) hypertension (principal); M54.89 Other dorsalgia; M25.59 Pain in other specified joint; R20.2 Paresthesia of skin; G89.29 Other chronic pain; E66.8 Other obesity
CPT/HCPCS: 36415; 80053; 85027; 87798; 86618

== ENCOUNTER 2023-03-28 21:37 | Outpatient (REF) | payer MEDICAID, SELFPAY ==
[2023-03-28 21:53] LABS: COMMENT (LAB VIEW ONLY) 93.25 mg/dL
== END 2023-03-28 21:38 | disposition home or self-care (01) ==
LOC: LBN 21:37
PROVIDERS: PCP Nurse Practitioner Family; Visit Provider Nurse Practitioner Family
DX: E11.9 Type 2 diabetes mellitus without complications (principal)
CPT/HCPCS: 82043; 82570

== ENCOUNTER → 2023-04-09 00:43 | Outpatient (CLI) | payer MEDICAID, SELFPAY ==
--- NOTE | 2023-04-09 07:30 | DI.US_ITS ---
Exam(s) US BREAST LT COMPLETE US BREAST RT COMPLETE MG MAMMO DIAGNOSTIC BI EXAM: MG MAMMO DIAGNOSTIC BI AND COMPLETE BILATERAL BREAST ULTRASOUND CLINICAL HISTORY: breast pain and lump bilateral,N64.4,N63.0. TECHNIQUE: BILATERAL CC AND MLO mammographic images were obtained with 3D tomosynthesis technique an d utilizing computer aided detection (CAD). BILATERAL COMPLETE BREAST ULTRASOUND was performed including all 4 quadrants of both breasts as well as both axillary regions. COMPARISON: None. 48-year-old male patient. FINDINGS: DIAGNOSTIC BILATERAL MAMMOGRAM: There is mild bilateral gynecomastia. Also benign bilateral breast tissue. No abnormally enlarged a xillary lymph nodes seen No spiculated masses nor malignant-appearing microcalcification groups. No significant architectural distortion or skin thickening-traction. BILATERAL COMPLETE BREAST ULTRASOUND: No evidence of solid or significant cystic lesions in all 4 quadrants. Scanning of both axillary regions is negative for significant adenopathy. IMPRESSION: 1. Mild bilateral gynecomastia. No radiographic evidence of malignancy. 2. Negative complete bilateral breast ultrasound. The patient was informed of the findings and follow-up recommendations by myself prior to leaving the department today. BI-RADS Category 2 - Benign Findings Breast Density - Category A - Almost entirely fatty Breast density Category C or D implies that the patient has dense breast tissue. Dense breast tissue can make it harder to find cancer on a mammogram. Dense breast tissue is also associated with an incr eased risk of breast cancer. This information about the result of the mammogram report was provided to the patient to raise their awareness. Use this report when you speak with the patient about their risks for breast cancer, which includes their family history. At that time, you may recommend additional screening tests (Ultrasoun d or MRI) as these tests may add significant information. A negative radiographic report should not delay biopsy if a dominant or clinically suspicious mass is present. Up to ten percent of cancers are not identified on mammography. A negative report may reinforce clinical impression. Adenosis and dense breasts may obscure an underlying neoplasm. False positive reports average 6 to 10%. Patient will receive a letter notifying them of these results.
--- NOTE | 2023-04-09 09:45 | DI.RAD_ITS ---
Exam(s) XR TIB/FIB LT EXAM: XR TIB/FIB LT CLINICAL HISTORY: left leg injury about 1.5 months ago, cont pain. TECHNIQUE: 2D digital imaging was performed. COMPARISON: No exams were available for comparison FINDINGS: 3 views No evidence of fracture nor abnormal soft tissue densities. Bone density normal. No osseous lesions evident. No widening of the ankle mortise. Visualized talar dome unremarkable. Tibial plateau stew ears unremarkable. IMPRESSION: No significant radiographic findings in the tibia and fibula. DATA REPOSITORY: RADIATION DOSE DELIVERED:
== END ==
PROVIDERS: PCP Nurse Practitioner Family; Visit Provider Nurse Practitioner Family
DX: N64.4 Mastodynia; M79.605 Pain in left leg
CPT/HCPCS: 76642; 77062; 77066; 73590; G0279

== ENCOUNTER 2024-06-08 15:31 | Outpatient (CLI) | payer MEDICAID, SELFPAY ==
[2024-06-08 14:28] LABS: Abs Immature Grans 0.02 10^3/uL (0.0-0.06); Absolute Basophil Count 0.03 10^3/uL (0.0-0.2); Absolute Eosinophil Count 0.07 10^3/uL (0.0-0.7); Absolute Lymphocyte Count 2.06 10^3/uL (1.2-3.4); Absolute Monocyte Count 0.46 10^3/uL (0.1-0.8); Absolute Neutrophil Count 3.65 10^3/uL (1.2-6.7); Basophils % 0.5 %; Eosinophils % 1.1 %; HCT 47.1 % (40.0-50.0); HGB 16.7 g/dL (13.5-17.5); Immature Grans % 0.3 %; Lymphocytes % 32.8 %; MCH 28.4 pg (27.0-33.0); MCHC 35.5 % (32.0-36.0); MCV 80 fL (80-95); MPV 9.2 fL (8.0-11.0); Monocytes % 7.3 %; Platelet Count 246 10^3/uL (130-400); RBC 5.87 10^6/uL (4.36-5.78); RDW 12.1 % (11.8-14.1); RDW-SD 35.2 fL; WBC 6.29 10^3/uL (4.4-10.8)
[2024-06-08 14:34] LABS: ESR 1 mm/hr (0-15)
[2024-06-08 14:44] LABS: Hemoglobin A1C 10.9 % (<5.7)
[2024-06-08 14:53] LABS: ALT 21 U/L (16-63); AST 8 U/L (15-37); Albumin 4.5 g/dL (3.4-5.0); Alkaline Phosphatase 99 U/L (46-116); Anion Gap 7.3 mmol/L (3-11); BUN 19 mg/dL (7-18); Bilirubin, Total 0.71 mg/dL (0.2-1.0); CO2 30.7 mmol/L (21.0-32.0); CREATININE 1.1 mg/dL (0.70-1.30); Calcium 9.7 mg/dL (8.5-10.1); Calculated LDL 198 mg/dL (<100); Chloride 99 mmol/L (98-107); Cholesterol 278 mg/dL (<200); Estimated GFR 82.29 (mL/min/1.73m2); Glucose 336 mg/dL (74-106); HDL Cholesterol 54 mg/dL (40-60); Potassium 4.5 mmol/L (3.5-5.1); Sodium 137 mmol/L (136-145); Total Protein 7.7 g/dL (6.4-8.2); Triglyceride 133 mg/dL (<150)
[2024-06-08 21:24] LABS: CRP, High Sensitivity 3.63 mg/L (See Note); Rheumatoid Factor <8.6 IU/mL (<12.0)
[2024-06-09 11:00] LABS: ANA Interpretation Negative (Negative)
== END 2024-06-08 15:32 | disposition home or self-care (01) ==
LOC: LBO 15:32
PROVIDERS: PCP Nurse Practitioner Family; Visit Provider Nurse Practitioner Family
DX: E13.9 Other specified diabetes mellitus without complications (principal); G89.4 Chronic pain syndrome; M54.10 Radiculopathy, site unspecified
CPT/HCPCS: 36415; 80053; 80061; 85652; 86141; 83036; 85025; 86038; 86431

== ENCOUNTER 2024-08-24 14:11 | Outpatient (CLI) | payer MEDICAID, SELFPAY ==
[2024-08-24 15:33] LABS: ALT 22 U/L (16-63); AST 12 U/L (15-37); Albumin 4.3 g/dL (3.4-5.0); Alkaline Phosphatase 102 U/L (46-116); Anion Gap 8.7 mmol/L (3-11); BUN 21 mg/dL (7-18); Bilirubin, Total 0.6 mg/dL (0.2-1.0); CO2 28.3 mmol/L (21.0-32.0); Calcium 9.4 mg/dL (8.5-10.1); Chloride 100 mmol/L (98-107); Estimated GFR 92.26 (mL/min/1.73m2); Glucose 304 mg/dL (74-106); Potassium 4.2 mmol/L (3.5-5.1); Sodium 137 mmol/L (136-145); Total Protein 7.6 g/dL (6.4-8.2); Vitamin D 25 Total 18 ng/mL (30-100)
[2024-08-24 15:56] LABS: Uric Acid 3.5 mg/dL (3.5-7.2)
[2024-08-24 22:51] LABS: Parathyroid Hormone,Intact 81 pg/mL (19-88)
[2024-08-25 10:45] LABS: Lyme Ab w Rflx to Lyme Confirm Negative (Negative)
[2024-08-27 18:01] LABS: Anaplasma phagocytophilum Negative (Negative); B. miyamotoi PCR Negative (Negative); Babesia divergens/MO-1 Negative (Negative); Babesia duncani Negative (Negative); Babesia microti Negative (Negative); Ehrlichia chaffeensis Negative (Negative); Ehrlichia ewingii/canis Negative (Negative); Ehrlichia muris eauclairensis Negative (Negative)
== END 2024-08-24 14:12 | disposition home or self-care (01) ==
LOC: LBO 14:12
PROVIDERS: PCP Nurse Practitioner Family; Visit Provider Nurse Practitioner Family
DX: G89.29 Other chronic pain
CPT/HCPCS: 36415; 80053; 82306; 87798; 83970; 84550; 86618

== ENCOUNTER 2024-11-16 09:22 | Day surgery (SDC) | payer MEDICAID, SELFPAY ==
--- NOTE | 2024-11-15 12:32 | W.PM.DSUDISC ---
Date of service: 11/15/24 Discharge Plan Disposition Patient Disposition: Home Condition: Good Discharge Details Reason For Visit: Screening colonoscopy Attending Provider: Nicolás Cardoza Primary Care Provider: Megha Dominguez Home Meds and New Rx's Prescriptions: Continued ibuprofen 400 mg tablet 400 mg PO TID PRN (Reason: pain) Qty: 90 3RF Rx Instructions: Take with food (DME) pen needle, diabetic [BD Ultra-Fine Short Pen Needle] 31 gauge x 5/16 needle See Rx Instructions .ROUTE .MEDSUPPLY Qty: 100 3RF Rx Instructions: Use with pen daily (DME) blood-glucose meter [FreeStyle [place]] Kit See Rx Instructions .Route Qty: 1 0RF Rx Instructions: As directed (DME) lancets [Accu-Chek Softclix Lancets] Misc See Rx Instructions .Route Qty: 300 3RF Rx Instructions: As directed, check BS up to 3 times a day (DME) FreeStyle Test Strip See Rx Instructions .Route Qty: 300 3RF Rx Instructions: As directed, check FS up to 3 times a day pantoprazole 40 mg tablet,delayed release (DR/EC) 40 mg PO QHS Qty: 90 3RF glipizide 10 mg tablet 10 mg PO BID Qty: 180 3RF clonazepam 0.5 mg tablet 0.5 mg PO TID MDD 1.5 mg Qty: 90 2RF indomethacin 50 mg capsule See Rx Instructions .ROUTE .COMPLEX Qty: 90 1RF Dose Instruction: TAKE ONE CAPSULE BY MOUTH THREE TIMES A DAY NEEDED FOR PAIN ADMINISTER WITH FOOD OR MILK Rx Instructions: TAKE ONE CAPSULE BY MOUTH THREE TIMES A DAY NEEDED FOR PAIN ADMINISTER WITH FOOD OR MILK oxycodone-acetaminophen [Percocet] 5-325 mg tablet 1 tab PO QID MDD 4 tablets PRN (Reason: pain) Qty: 112 0RF tramadol 50 mg tablet 50 mg PO QID PRN (Reason: pain) Qty: 120 3RF Discontinued bisacodyl [Dulcolax (bisacodyl)] 5 mg tablet,delayed release (DR/EC) 5 mg PO ONCE Qty: 4 0RF Rx Instructions: Take per colonoscopy instructions provided by ordering providers office polyethylene glycol 3350 17 gram/dose powder 17 g PO ONCE Qty: 238 0RF Rx Instructions: Take per colonoscopy instructions provided by ordering providers office No Action ketorolac 10 mg tablet Patient Comments: TAKE ONE TABLET BY MOUTH EVERY 6 HOURS NEEDED FOR PAIN (NOT TO EXCEED 40MG PER DAY AND 5 DAYS DURATION FOR ALL DOSE FORMS) bisacodyl 5 mg tablet,delayed release (DR/EC) PO Patient Comments: TAKE BY MOUTH ONCE DIRECTED PER COLONOSCOPY INSTRUCTIONS PROVIDED BY ORDERING PROVIDERS OFFICE polyethylene glycol 3350 17 gram/dose powder Patient Comments: DISSOLVE MIXTURE IN LIQUID AND DRINK BY MOUTH ONCE DIRECTED PER COLONOSCOPY INSTRUCTIONS PROVIDED BY ORDERING PROVIDERS OFFICE Discharge Instructions Additional Instructions: Devon was nice to meet you today, and I hope you make a quick recovery from the procedure. Things went very smoothly. The inside lining of your colon was totally normal all along the length of your colonoscopy. I did not see any signs of tumors, polyps, or signs of inflammation consistent with Crohn's disease or ulcerative colitis. With a normal colonoscopy, and no other significant risk factors, recommended 10-year interval for your next colonoscopy. Hopefully, you will make a quick and uneventful recovery from this. With regards to your experience with previous colonoscopies, I do wonder if the process of the prep predisposes you to some irritation. It may be worth using something like lactobacillus over the next few days to reconstitute your GI tract. 1. If tolerated, consume a soft, low fiber diet for 1-2 days. 2[address] Do not drive, drink alcohol, operate machinery, make critical decisions, or do activities that require coordination or balance for 24 hours. 3. Because air was put into your colon during the procedure, expelling air from your rectum (passing gas or farting) is normal. 4. You may not have a bowel movement for 1-3 days because of the colonoscopy prep. This is normal. 5. Go directly to the emergency room if you notice any of the following: Develop chills (warm to touch), or if you have a thermometer and your temperature is above 101 Difficulty breathing or difficultly swallowing Persistent vomiting Severe abdominal pain, other than gas cramps Severe chest pain Black, tarry stools Any bleeding ? exceeding one tablespoon 6. Call your physician if the site where your intravenous was started becomes red, swollen, painful, and warm to touch. 7. Your physician has reviewed your pre-procedure medications. Please continue to take those medications as previously ordered. You will be given specific information/education regarding any changes to your medications before leaving. Activity:: Activity as Tolerated Diet:: As Tolerated DS: Diagnosis Discharge Diagnosis (1) Encounter for screening colonoscopy: Status: Acute Asessment and Plan: Negative screening colonoscopy
--- NOTE | 2024-11-15 12:34 | COLE_ITS ---
Date of service: 11/16/24 Time of Service: 12:00 Colonoscopy Report Date of procedure: 11/16/24 Pre-op diagnosis general: Screening colonoscopy Post-op diagnosis procedure note: other (Negative screening colonoscopy) Procedure: Colonoscopy Surgeon: Nicolás Cardoza Anesthesia Type: General:No Airway Estimated blood loss (mL): 0 Pathology: none sent Complications: None Disposition: same day Indications: Devon is a 49-year-old man he needs his for screening colonoscopy Prep: Miralax/Dulcolax Procedure Start Time: 11:34 Procedure End Time: 11:44 Retraction Time: 6 Findings: Normal-appearing colonoscopy Procedure Description: After the induction of m anesthesia, and with the patient in left lateral decubitus position, I began by performing an external anorectal exam.? Perineum and skin were normal, as was the anal verge.? There was no evidence of external hemorrhoids.? Next, I performed a digital rectal exam.? I did not appreciate any abnormal findings.? Next, I advanced a colonoscope into the rectal vault.? I performed retroflexion.? This appeared normal.? Using insufflation, I then advanced the colonoscope beyond the rectal folds and into the sigmoid colon before advancing towards the cecum.? The quality of the prep was excellent.? The scope was noted to be in the cecum by identification of the ileocecal valve and appendiceal orifice.? I then began withdrawing the colonoscope using repeated irrigation as necessary for full evaluation of the colonic mucosa. ?Once the scope was withdrawn to the level of the rectum, great care was taken to examine portions of the rectal folds.? I saw no signs of tumors, polyps, or any other worrisome pathology. Finally, the scope was withdrawn and the patient was brought to the same-day surgery recovery unit as the anesthetic wore off. ?The findings and instructions were shared with the patient prior to discharge. [place] Bowel Prep [place] Bowel Prep Right Colon: 3 Left Colon: 3 Transverse Colon: 3 Total Score: 9
[2024-11-16 09:46] VITALS: BP 116/81; PULSE 73; RESP 18; TEMP 36.6; O2SAT 100
[2024-11-16] MEDS: Lactated Ringers 1,000 ML 80 ML IV (10:10)
--- NOTE | 2024-11-16 11:22 | ANES.PREOP_ITS ---
General Info Date of Service Date Performed: 11/16/24 Height: 5 ft 11 in Weight: 102.5 kg Body Mass Index (BMI): 31.5 Surgical Procedure: Operation Date: 11/16/24 10:50 Proposed Procedure Side Surgeon cash Cardoza MD Meds Allergies and Home Medications Allergies Allergy/AdvReac Type Severity Reaction Status Date / Time Penicillins Allergy Intermediate Hives Verified 11/16/24 09:40 Sulfonylureas Allergy Mild Skin Rash Verified 11/16/24 09:40 duloxetine AdvReac Severe Headache, Verified 11/16/24 09:40 muscle spasm Influenza Virus Vaccines AdvReac Severe Nausea Unverified 11/16/24 09:40 pregabalin (From Lyrica) AdvReac Severe severe flu Verified 11/16/24 09:40 like symptoms gabapentin AdvReac Intermediate stomach, Verified 11/16/24 09:40 body aches lisinopril AdvReac Intermediate Burning Verified 11/16/24 09:40 hands and feet. Malaise metformin AdvReac Mild Nausea Verified 11/16/24 09:40 Home Medication ?Medication ?Instructions ?Recorded ibuprofen 400 mg tablet 400 mg PO TID PRN pain #90 t abs 01/21/20 blood-glucose meter (FreeStyle #1 ea 06/19/22 [place] kit) pen needle, diabetic 31 gauge x #100 ea 06/19/2209/04 (BD Ultra-Fine Short Pen Needle) blood sugar diagnostic (FreeStyle #300 ea 11/20/22 Test strips) lancets (Accu-Chek Softclix #300 ea 11/20/22 Lancets) pantoprazole 40 mg tablet,delayed 40 mg PO QHS #90 tab s 12/24/23 release glipizide 10 mg tablet 10 mg PO BID #180 tabs 02/02 clonazepam 0.5 mg tablet 0.5 mg PO TID stiff person 0 08/28/24 syndrome #90 tabs indomethacin 50 mg capsule See Rx Instructions .Route 10/08/24 .COMPLEX #90 caps oxycodone-acetaminophen 5 mg-325 1 tab PO QID PRN pain #112 tabs 10/22/24 mg tablet (Percocet) tramadol 50 mg tablet 50 mg PO QID PRN pain #120 t abs 10/26/24 bisacodyl 5 mg tablet,delayed mg PO 11/16/24 release ketorolac 10 mg tablet mg 11/16/24 polyethylene glycol 3350 17 g 11/16/24 gram/dose oral powder Current Visit Medications: Current Medications Generic Name Dose Route Start Last Admin Trade Name Christine PRN Reason Stop Dose Admin Ringer's Solution 1,000 mls @ 80 mls/hr 11/16/24 06:00 11/16/24 10:10 IV 11/16/24 23:59 80 mls/hr INFUSION DANAE Administration IV Miscellaneous Supplies 1 each 11/16/24 06:00 Iv Access IV 11/16/24 23:59 DIRECTED DANAE Ondansetron HCl 4 mg 11/15/24 12:34 Ondansetron 4 Mg/2 Ml Vial IVP 12/15/24 12:33 Q4H PRN PRN Nausea / Vomiting Sodium Chloride 0 ml 11/16/24 06:00 Normal Saline Flush 10 Ml Syr IV 11/16/24 23:59 PRN PRN Sodium Chloride 0 ml 11/16/24 06:00 Normal Saline 10 Ml Vial IJ 11/16/24 23:59 DIRECTED PRN Sterile Water 0 ml 11/16/24 06:00 Water,Injection,Sterile 10 Ml Vial IJ 11/16/24 23:59 DIRECTED PRN PFSH Active Problems Active Problems: Problem Status Onset Code Encounter for screening colonoscopy Acute Z12.11 Breast pain in male Acute N64.4 Midline thoracic back pain Acute M54.6 Neck pain with history of cervical spinal surgery Acute M54.2, Z98.890 Lumbar spondylosis Acute M47.816 Abdominal pain Acute R10.9 Back pain Acute M54.9 Chronic pain Chronic G89.29 Allergies Acute T78.40XA Diabetes mellitus type 1.5 Acute E13.9 Arthralgia Acute M25.50 Depression Chronic F32.9 Right shoulder pain Acute M25.511 Gout Chronic M10.9 Right lumbar radiculopathy Acute M54.16 Paresthesia Chronic R20.2 Obesity (BMI 30-39.9) Chronic 11/15/17 E66.9 Idiopathic scoliosis Chronic M41.20 Essential hypertension Chronic 02/16/15 I10 Esophageal reflux Chronic K21.9 Dental caries Resolved K02.9 Chronic back pain Chronic 10/07/13 M54.9, G89.29 Carpal tunnel syndrome of right wrist Chronic 10/31/17 G56.01 Attention deficit hyperactivity disorder (ADHD), 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 Family history of diabetes mellitus (10/07/13) Radiculopathy affecting upper extremity Medical History Comments:: Pt. states if he gets up too quickly he will vomit. Surgical History Surgical History Appendectomy H/O lumbosacral spine surgery Left L4-5 ton-laminotomy with a medial facetectomy for left sciatica; 10/18/[address] Menendez Myringotomy w/ PE (pressure equalizing) tubes age 5 Tonsillectomy Tobacco Smoking/Tobacco Use Status: Never Passive smoking exposure: Yes Second hand exposure: Yes Alcohol Alcohol Intake: never Substance Use Substance use: Never Substance use type: does not use Vital Signs and Lab Results Vital Signs Most Recent Vital Signs in EMR: Most Recent Vital Signs Temp Pulse Resp BP Pulse Ox 36.6 C 73 18 116/81 100 11/16/24 09:46 11/16/24 09:46 11/16/24 09:46 11/16/24 09:46 11/16/24 09:46 Point of Care Results Point of Care Results: Finger Stick Blood Glucose 291 11/16/24 09:54 Imaging and Studies Imaging and Studies Study information below may be from another EMR and interpreted by another provider. Please see original notes in EMR for more complete details. EKG Summary: 11/17/19: Exam: Resting ECG Reason for Exam: trauma Patient Location: E HR:74 bpm ECG Measurements Heart Rate 74 AXIS AL 154 P 55 QRSd 91 QRS -11 QT 393 T34 QTc 436 Conclusion Sinus rhythm...normal P axis, V-rate 60- 99 Low voltage, precordial leads...precordial leads <1.0mV I have reviewed and I agree with the emergency room physician's ECG interpretation. Stress Test Summary: 05/19/19: MPI Conclusion Ejection fraction was 50% with no wall motion abnormalities. There is no evidence of ischemia on the imaging portion of this exam. This represents a normal SPECT imaging study. Anesthesia Assessment and Plan Anesthesia History Personal History: PONV Family History: No Family History of Anesthesia Complications Exercise Tolerance Exercise Tolerance: Metabolic Equivalents>4 Pertinent Negatives Pertinent Negatives: No Symptoms of GERD, No Major Cardiovascular Symptoms or Complaints and No Major Pulmonary Symptoms or Complaints Cardiac & Pulmonary Exam Cardiac Exam: Normal S1/S2 Heart Sounds Pulmonary Exam: Clear Bilateral Breath Sounds Implantable Cardiac Device Does patient have a Pacemaker or an ICD?: No Airway Exam Known Difficult Airway: No Mallampati Class: 2 Mouth Opening: Normal (> 3cm) Thyromental Distance: Greater than 3 cm Neck Range of Motion: Full ROM Neck Circumference: Normal Teeth Condition: Normal Dentition ASA Classification ASA Score: ASA 2 Emergency Case?: No NPO Status NPO Status: NPO Clears >2 hours, Solids >8 hours Anesthesia Plan Resuscitation Status: Full Code Anesthesia Technique: General Anesthesia Airway Planned: Natural Airway Monitors Used: Standard Monitors Preoperative Comments:: Discussed blood sugar with Dr. Cardoza, no interventions given patient on oral medications. Will continue standard regimen after colonoscopy. Patient will self-position on side.
[2024-11-16 11:25] VITALS: BMI 31.5
[2024-11-16 11:50] VITALS: BP 115/79; PULSE 71; RESP 16; TEMP 36.9; O2SAT 96
--- NOTE | 2024-11-16 12:08 | W.ANESPOSTOP ---
Postoperative Evaluation Date, Time and Location Date Performed: 11/16/24 Time Performed: 11:55 Patient Location: Day Surgery Unit Vital Signs Most Recent Imported Vital Signs: Most Recent Vital Signs Temp Pulse Resp BP Pulse Ox 36.9 C 71 16 115/79 96 11/16/24 11:50 11/16/24 11:50 11/16/24 11:50 11/16/24 11:50 11/16/24 11:50 Pain Score Most Recent Pain Score: Most Recent Pain Score Pain Level 0 11/16/24 11:50 Assessment Mental Status: Awake (Alert & Oriented to Patient Baseline) Airway and Respiratory Function: Patent airway with normal (patient baseline) respiratory exam Cardiovascular Function: Hemodynamically Stable Hydration Status: Adequately Hydrated Nausea & Vomiting: No Nausea or Vomiting Pain: Pt. Denies Any Pain Peripheral Nerve Block: Patient did not receive a nerve block
[2024-11-16 12:20] VITALS: BP 124/83; PULSE 60; RESP 16; TEMP 36.6; O2SAT 99
== END 2024-11-16 12:34 | disposition home or self-care (01) ==
LOC: SUR 09:22
PROVIDERS: PCP Nurse Practitioner Family; Visit Provider Surgery
PROC: 0DJD8ZZ Inspection of Lower Intestinal Tract, Via Natural or Artificial Opening Endoscopic (ICD-10-PCS; CPT 45378; principal; 2024-11-16 10:45)
DX: Z12.11 Encounter for screening for malignant neoplasm of colon (principal)
CPT/HCPCS: 45378; J2003; J2704

== ENCOUNTER 2024-12-23 15:00 | Outpatient (CLI) | payer MEDICAID, SELFPAY ==
[2024-12-23 15:44] LABS: ALT 34 U/L (16-63); AST 13 U/L (15-37); Albumin 4.2 g/dL (3.4-5.0); Alkaline Phosphatase 106 U/L (46-116); Anion Gap 6.5 mmol/L (3-11); BUN 12 mg/dL (7-18); Bilirubin, Total 0.8 mg/dL (0.2-1.0); CO2 29.5 mmol/L (21.0-32.0); Calcium 9.8 mg/dL (8.5-10.1); Chloride 94 mmol/L (98-107); Estimated GFR 82.29 (mL/min/1.73m2); Potassium 4.5 mmol/L (3.5-5.1); Sodium 130 mmol/L (136-145); Total Protein 7.3 g/dL (6.4-8.2)
[2024-12-23 16:27] LABS: Glucose 553 mg/dL (74-106)
[2024-12-23 22:33] LABS: PSA, Screening 0.8 ng/mL (<=2.5)
== END 2024-12-23 15:01 | disposition home or self-care (01) ==
LOC: LBO 15:00
PROVIDERS: PCP Nurse Practitioner Family; Visit Provider Nurse Practitioner Family
DX: I10 Essential (primary) hypertension (principal); E13.9 Other specified diabetes mellitus without complications; Z12.5 Encounter for screening for malignant neoplasm of prostate
CPT/HCPCS: 36415; 80053; 84153